=== PATIENT | female | born 1965 | race Caucasian/White ===

== ENCOUNTER 2016-10-20 09:13 | Emergency (ER) | payer OTHER ==
[~2016-10-20] VITALS: Ht 149.8 cm; Wt 70.3 kg
[~2016-10-20 09:13] MED LIST: ATORVASTATIN CA10 MG PO; FAMOTIDINE20 M1 PO; FLUOXETINE HCL10 MG PO; FLUOXETINE HYDR20 M1 PO; GLIPIZIDE5 MG PO; GLYBURIDE1 CRY; GLYBURIDE1.5 MG PO; HUMALOG100 UNIT/1 SQ; LANTUS100 U/ML SC; LISINOPRIL30 MG PO; METFORMIN500 MG PO; MOBIC15 MG PO; MOBIC7.5 MG PO; MOTRIN400 MG; MOTRIN800 MG PO; NEURONTIN300 MG PO; OXYBUTYNIN5 MG PO; VITAMIN D2400 UNIT PO
[2016-10-20 09:18] VITALS: BP 149/79
[2016-10-20] MEDS ORDERED: BACTRIM DS 8001 TA1 PO (09:56)
== END 2016-10-20 10:18 | disposition home or self-care (01) ==
LOC: ED 09:13
DX: E10.621 Type 1 diabetes mellitus with foot ulcer (principal); L97.521 Non-pressure chronic ulcer of other part of left foot limited to breakdown of skin; R03.0 Elevated blood-pressure reading, without diagnosis of hypertension; Z79.4 Long term (current) use of insulin; Z79.899 Other long term (current) drug therapy

== ENCOUNTER → 2016-10-24 | Outpatient (CLI) | payer OTHER ==
[~2016-10-24] MED LIST changes: +BACTRIM DS 8001 TA1 PO
--- NOTE | ~2016-10-24 | WRIGHTHP ---
[place], [place] PATIENT HISTORY AND PHYSICAL EXAM NAME: ERIKA ISIDRO [facility] #: [id number] UNIT #: [id number] ROOM: DOCTOR: AURY EL M.D. BIRTHDATE: [birth year] DOS: 10/24/2016 This is a new wound care evaluation. CHIEF COMPLAINT: Diabetic foot ulcer. HISTORY OF PRESENT ILLNESS: This is a 51-year-old female with history of type 2 diabetes, which is uncontrolled, who comes to the wound clinic secondary to a referral from the ER. She presented to the Emergency Department 4 days ago with an ulcer of the bottom of her left foot. She apparently had a very thick callus present on the bottom of her left foot for many months now that was causing pain and discomfort whenever she would walk on it and she had been to the textbook associate who was debriding it and did notice an ulcer present approximately for the past 2 months now, so she said she was following up with Podiatry for wound care, had it debrided every week, but the ulcer did not heal. She said she has noticed an odor coming from it and was seen in the Emergency Room Department, had an x-ray done for it, which was negative and was treated with oral antibiotics, Bactrim double strength twice a day was prescribed. The patient reports that odorous has improved after being on the antibiotics. She is soaking her foot with soap and water, but has not had wound care for this ulcer since at least August. She said the last time the wound area was debrided was back in August, so the callus has not been recently debrided. She does also report that at one point she was given a prescription for some type of cream, but no longer has been using it and just really has not been using any type of special dressings on this wound. She has regular shoes that she has been wearing and was told to walk on her heel which she has trouble with, which causes discomfort of her heel. She reports this is the first time she has ever had an ulcer of her left foot. PAST MEDICAL HISTORY: Significant for hyperlipidemia and hypertension. She has a history of type 2 diabetes, is on insulin and oral agents. Her sugar was 170 recently, however, when I looked back at her blood work, her labs were quite uncontrolled. Her sugar at that time was 234 and her hemoglobin A1c was 11.3. Her lipid profile also was markedly uncontrolled with triglyceride 490 range. Cholesterol 310. PAST MEDICAL HISTORY: She has neuropathy and GERD. She has never had a formal peripheral vascular disease that she is aware of. Never had a heart attack or heart failure that she is aware of. She has a history of arthritis, chronic back pain, dizziness, headaches and history of anxiety. PAST SURGICAL HISTORY: She is status post cholecystectomy. FAMILY HISTORY: Significant for hypertension in the mother and father, diabetes in her mother and siblings and heart disease in her father, seizure disorder in her child. SOCIAL HISTORY: She is a smoker, smokes half a pack per day. She is , does not use drugs or drink alcohol. ALLERGIES: No known drug allergies. [place], [place] PATIENT HISTORY AND PHYSICAL EXAM NAME: ERIKA ISIDRO [facility] #: [id number] UNIT #: [id number] ROOM: DOCTOR: AURY EL M.D. BIRTHDATE: [birth year] MEDICATIONS: As follows: She is on atorvastatin 10 mg p.o. daily, fluoxetine 10 mg p.o. b.i.d. and 20 mg p.o. b.i.d., Mobic 15 mg p.o. daily or 7.5 p.o. daily, metformin 500 p.o. b.i.d., vitamin D2 500 units p.o. daily, oxybutynin 5 mg p.o. daily, lisinopril 30 mg p.o. daily, glyburide 1.5 p.o. daily, famotidine 20 mg every 12 hours, glipizide 5 mg p.o. daily, Neurontin 300 p.o. t.i.d., insulin Lantus 25 units at bedtime and lispro 25 units subq daily. REVIEW OF SYSTEMS: She does have some pain and discomfort from the ulcer when she walks on it, but otherwise no fevers or chills. She reports no problems with the antibiotics. Denies chest pain, shortness of breath, nausea or vomiting. She does have some intermittent discomfort in her legs when she ambulates and has to take breaks, but does not really say it is really localized to the calf. It seems more generalized. She does have some drainage coming from the wound and it is bloody. PHYSICAL EXAMINATION: GENERAL: Shows female who is a well-developed, well-nourished, pleasant, cooperative in no acute distress. VITAL SIGNS: Stable. Temperature 98, pulse 80, respirations 18, blood pressure is 130/80. HEENT: Oropharynx is clear. Extraocular movements are intact. Sclerae are anicteric. NECK: There is no JVD. LUNGS: Clear. CARDIOVASCULAR: S1, S2 regular rate and rhythm. ABDOMEN: Soft and nontender. EXTREMITIES: Really no edema, no calf tenderness. The foot is warm. I have a difficult time appreciate her pulses. She did have an JUNE done which was 0.97 on the left and 1.08 on the right foot. ASSESSMENT: Shows some sensation present in some areas that are noted to have decreased sensation with monofilament testing. The wound is located on the left plantar aspect in between the first and second metatarsal head and its very thick callus very quite large measuring 1 x 0.5 x 0.4 in depth. There is no significant odor. There is no erythema or purulence. There is undermining noted as well at the 5 o'clock position at 0.5 cm. A debridement was done today. The tissue removed was devitalized tissue and callus was debrided with forceps, scissors and a 15 blade also and nippers were used. There was no bleeding. Cetacaine spray was used for topical anesthesia. A timeout was conducted prior to start of the procedure. The patient tolerated procedure well. Post-debridement measurements are 1.4 x 0.5 x 0.4. It was noted that the ulcer still was fairly deep even after the callus was debrided, so there is a definite deep ulcer present. Post-debridement swab culture was obtained of the deepest part of the wound. ASSESSMENT AND PLAN: Chronic diabetic foot ulcer, Boyd Stage 2. There does not appear to be any signs of infection. I would like to use Aquacel Ag rope and a bulky dressing. I felt foam padding was applied to the outer part of the callus to help offload the area. We will give her postop shoe today. We will [place], [place] PATIENT HISTORY AND PHYSICAL EXAM [facility]: [facility] [id number] UNIT #: [id number] ROOM: DOCTOR: AURY EL M.D. BIRTHDATE: [birth year] go ahead and schedule her for an MRI to be done if negative, I think she would be a good candidate for total contact cast. Also, I have taken the liberty to order arterial Dopplers for her. Her pedal pulses were difficult to palpate upon examination. Although her JUNE was good. She does have uncontrolled diabetes. I discussed this with her and asked her to make sure she follows up with her primary care doctor. We will also consider having the finance business partner come and speak with her about her sugar control. A culture was obtained, although clinically there does not appear to be any signs of an acute infection. She is going to go ahead and complete her Bactrim. Follow up in 1 week. AURY EL MD CM:HISPHYS:PATIENT HISTORY AND PHYSICAL EXAMINATION [id number] AURY EL M.D. 10/25/16 0943 interface
== END | disposition home or self-care (01) ==
LOC: WOUNDCARE 09:09
DX: E11.621 Type 2 diabetes mellitus with foot ulcer (principal); L97.522 Non-pressure chronic ulcer of other part of left foot with fat layer exposed; L84 Corns and callosities; E78.5 Hyperlipidemia, unspecified; I10 Essential (primary) hypertension; F17.210 Nicotine dependence, cigarettes, uncomplicated

== ENCOUNTER → 2016-10-30 | Outpatient (CLI) | payer OTHER ==
--- NOTE | ~2016-10-30 | PR ---
[place], [place] PROGRESS NOTE NAME: ERIKA ISIDRO [facility] #: [id number] UNIT #: [id number] ROOM: DOCTOR: NIKKO IbarraAURY BIRTHDATE: [birth year] DOS: 10/30/2016 CHIEF COMPLAINT: Followup of diabetic foot ulcer. HISTORY OF PRESENT ILLNESS: This is a 51-year-old female with uncontrolled diabetes and neuropathy who was seen in the Wound Clinic for the first time last week for a diabetic foot ulcer located on the left plantar foot between the first and second metatarsals. She has had an ulcer there for approximately 2 months before she came to see us. She was seen last week where it was noted that the wound was quite deep. There was a very thick callus that was debrided, and Aquacel Ag Ribbon and a bulky dressing as well as a postop shoe were recommended. The patient states that she has noticed an odor on occasions when she changes the bandages. No fevers or chills. No pain. No change in drainage since last week. She has been walking with a postop shoe okay without any particular complaints. She is scheduled for an MRI and an ultrasound next week. PHYSICAL EXAMINATION: VITAL SIGNS: Temperature 97.7, pulse 82, respirations 18, and blood pressure 122/76. WOUND: The wound is measuring 0.8 x 0.5 x 0.4. This callus is fairly thick, but not quite as thick as it was last week, the depth is still pretty deep. There was a minimal undermining at 12 o'clock position of 0.5. The area was debrided with a #15 blade to remove the hyperkeratotic callus and also a curette was utilized to remove fibrin, slough, and subcutaneous tissue from the deep part of the wound. The patient tolerated the debridement well. There was minimal bleeding. Post-debridement measurements are 0.8 x 0.5 x 0.4. A culture was obtained last week which grew Klebsiella, which was sensitive to pretty much everything except for tetracycline. The patient has been completing a course of Bactrim; however, she has been complaining of frequent vomiting and nausea. Otherwise, she does not feel sick at all. She just thinks it is from the antibiotics. ASSESSMENT AND PLAN: Diabetic foot ulcer, Boyd stage 2. She is going to have her MRI and ultrasound next week. We are using a postop shoe for offloading. I have added a felt pad to help see if we can alleviate some of the pressure around the gold-wound or the gold-callus area. Due to the odor still present, I am going to add Keflex to her regimen instead of Bactrim and topical gentamicin to the wound base. We will have the patient follow up in one week. [place], [place] PROGRESS NOTE [facility]: [id number] UNIT #: [id number] ROOM: DOCTOR: AURY EL M.D. BIRTHDATE: [birth year] AURY EL MD CM:PNTRANS [id number] AURY EL M.D. 10/30/16 1156 interface
== END | disposition home or self-care (01) ==
LOC: WOUNDCARE 00:44
DX: E11.621 Type 2 diabetes mellitus with foot ulcer (principal); L97.522 Non-pressure chronic ulcer of other part of left foot with fat layer exposed; E11.40 Type 2 diabetes mellitus with diabetic neuropathy, unspecified; L84 Corns and callosities

== ENCOUNTER → 2016-11-07 | Outpatient (CLI) | payer OTHER ==
--- NOTE | ~2016-11-07 | PR ---
[place], [place] PROGRESS NOTE NAME: ERIKA ISIDRO [facility] #: [id number] UNIT #: [id number] ROOM: DOCTOR: AURY EL M.D. BIRTHDATE: [birth year] DOS: 11/07/2016 CHIEF COMPLAINT: Followup of diabetic foot ulcer. HISTORY OF PRESENT ILLNESS: The location of the wound is the left plantar aspect between the first and second metatarsal head. It is secondary to diabetes and neuropathy. She has had it for 3 months at least. She has been coming to the Wound Clinic for 2 weeks now. She has no specific complaints. She says that the wound has stopped draining, she thinks the wound is healed. She is not having pain or discomfort. She had some klebsiella growing from the wound 2 weeks ago and she was started on oral Keflex. She is tolerating that well. She says her sugar was 197 today. She was scheduled for an ultrasound and an MRI of the left foot. She is still a smoker. PHYSICAL EXAMINATION: VITAL SIGNS: Stable. Temperature is 98.1, pulse 80, respirations 18, and blood pressure 100/60. WOUND: The wound does appear to be healed. There is still some callus noted. A selective debridement was done just to remove the hyperkeratotic callus. The wound still remained closed underneath it. This was carried out with a #15 blade. There was no bleeding. The wound appears healed underneath it. ASSESSMENT AND PLAN: Diabetic foot ulcer. It does appear to be healed at this point, we can go ahead and cancel the MRI. If for some reason, it reopens, we can reschedule it, but I do want her to get her ultrasound done as she is a smoker and diabetic and there is a risk for peripheral arterial disease. Follow up in 1 week. She can leave the area open for now. I did encourage her to wear diabetic socks. She has diabetic shoes. We will go ahead and put offloading pad around the area on the outer part of the callus. I did show her how to do this at home and she would like to try. AURY EL MD CM:PNTRANS [id number] AURY EL M.D. 11/07/16 1225 interface
== END | disposition home or self-care (01) ==
LOC: US 11-06 13:00 → MRI 11-06 14:00 → WOUNDCARE 08:02 → US 10:00
DX: E11.621 Type 2 diabetes mellitus with foot ulcer (principal); L97.522 Non-pressure chronic ulcer of other part of left foot with fat layer exposed; E11.40 Type 2 diabetes mellitus with diabetic neuropathy, unspecified; L84 Corns and callosities

== ENCOUNTER → 2016-11-14 | Outpatient (CLI) | payer OTHER ==
--- NOTE | ~2016-11-14 | PR ---
[place], [place] PROGRESS NOTE NAME: ERIKA ISIDRO [facility] #: [id number] UNIT #: [id number] ROOM: DOCTOR: NIKKO IbarraAURY BIRTHDATE: [birth year] DOS: 11/14/2016 CHIEF COMPLAINT: Followup of diabetic foot ulcer. HISTORY OF PRESENT ILLNESS: This is a 51-year-old female with diabetes who has been coming to the Wound Clinic for 3 weeks now for a diabetic foot ulcer of the left plantar foot. She has had the wound approximately for 3 months prior to her coming here. It was felt that her wound was healed upon last visit and she states that she thinks the wound remains healed; however, she said she did notice some discomfort and pain when she was walking on her foot the other day, although does not have the pain today. No drainage, no fevers, no chills. She continues to smoke. PHYSICAL EXAMINATION: VITAL SIGNS: She is afebrile, pulse of 70, respirations 18, blood pressure is 110/70. SKIN: The area appears to be callused over. It is measuring 0.1 x 0.1 x 0.1, but there is a small area in the center of the callus that appears perhaps it has not quite healed completely. This area was selectively debrided with a #15 blade, forceps and scissors and it was noted that the wound was still slightly open after debridement. There was no bleeding. #15 blade, forceps and scissors were utilized. Post-debridement measurements are 0.5 x 0.2 x 0.2. The wound looks clean. It is definitely smaller than it was when she first presented and there is no sign of infection. I did go over the lab results with the patient. She had her arterial ultrasound done of bilateral lower extremities and she has severe distal atherosclerosis of the right lower extremity noted. The left one looks okay. I discussed this with the patient and I recommend a followup with Vascular. She does have some symptoms consistent with intermittent claudication of the right leg, so she should definitely follow up with Vascular. ASSESSMENT AND PLAN: Chronic diabetic foot ulcer, which does appear to be getting smaller in general. There is no sign of infection. We will continue with a collagen dressing and a bulky dressing and have her follow up in 1 week. I did mention that we should consider total contact cast if it is not completely healed by then and she says she wants to wait another week to see how it looks. A small felt moleskin was applied to the outer part of the callused area. She did state, however, that she did try to use some offloading pad, but she placed it right on the actual callus instead of around it, so that may have contributed to part of the callus returning so quickly. I did explain to her that we should not put it on the callus, but on the outside of the callus to try to offload it. Follow up in 1 week. [place], [place] PROGRESS NOTE NAME: ERIKA ISIDRO UNIT #: [id number] ROOM: DOCTOR: AURY EL M.D. BIRTHDATE: [birth year] AURY EL MD CM:ROMULO [id number] AURY EL M.D. 11/15/16 0016 interface
== END | disposition home or self-care (01) ==
LOC: WOUNDCARE 03:43
DX: E11.621 Type 2 diabetes mellitus with foot ulcer (principal); L97.522 Non-pressure chronic ulcer of other part of left foot with fat layer exposed; E11.51 Type 2 diabetes mellitus with diabetic peripheral angiopathy without gangrene; L84 Corns and callosities

== ENCOUNTER → 2016-11-22 | Outpatient (CLI) | payer OTHER ==
--- NOTE | ~2016-11-22 | PR ---
[place], [place] PROGRESS NOTE NAME: ERIKA ISIDRO [facility] #: [id number] UNIT #: [id number] ROOM: DOCTOR: AURY EL M.D. BIRTHDATE: [birth year] DOS: 11/22/2016 CHIEF COMPLAINT: Follow up of diabetic foot ulcer. HISTORY OF PRESENT ILLNESS: A 51-year-old female with uncontrolled diabetes. She has been coming to the Wound Clinic for 4 weeks now for a diabetic foot ulcer on the left plantar foot. It essentially has been getting smaller. It does, however, calluses over and then there is still small open area underneath it. This was noted last week. She states it looks the same today as it did after last week and has callused over once again and she is not able to pack it, she says she ran out of dressing. She has no drainage coming from it and no pain. She is scheduled for possible vascular intervention tomorrow with Dr. Bates for the right leg. PHYSICAL EXAMINATION: She is afebrile, temperature 98.4, pulse 74, respirations 18, and blood pressure 124/82. Initially, the wound looks to be healed over, but there is a very thick callus, not quite as thick as before, but it is noted; however, it does appear that there may be a small central opening still noted. Debridement was done, selective only, to remove the hyperkeratotic area and there is still an open area noted. It is small at 0.4 x 0.1 x 0.2, but it is still open and is almost smaller than an eraser head essentially. There is no sign of infection, purulence, cellulitis, or odor. ASSESSMENT AND PLAN: Diabetic foot ulcer, Boyd stage 1 at this point. It is definitely improved overall. She still has a small open area that is present. We did discuss doing a contact cast, but she is going to have revascularization tomorrow. I would like to leave the cast off in case they want to do any procedures for the left leg. She can come back on Sunday for possible total contact cast placement. In the meantime, we will continue with collagen and bulky dressing and have her follow up early next week. AURY EL MD CM:PNTRANS [id number] AURY EL M.D. 11/23/16 0107 interface
== END | disposition home or self-care (01) ==
LOC: WOUNDCARE 01:42
DX: E11.621 Type 2 diabetes mellitus with foot ulcer (principal); L97.522 Non-pressure chronic ulcer of other part of left foot with fat layer exposed; E11.51 Type 2 diabetes mellitus with diabetic peripheral angiopathy without gangrene; L84 Corns and callosities

== ENCOUNTER → 2016-11-27 | Outpatient (CLI) | payer OTHER ==
--- NOTE | ~2016-11-27 | PR ---
[place], [place] PROGRESS NOTE NAME: ERIKA ISIDRO [facility] #: [id number] UNIT #: [id number] ROOM: DOCTOR: AURY EL M.D. BIRTHDATE: [birth year] DOS: 11/27/2016 WOUND CARE PROGRESS NOTE CHIEF COMPLAINT: Follow up diabetic foot ulcer. HISTORY OF PRESENT ILLNESS: This is a 51-year-old female with uncontrolled diabetes and plantar foot wound on the left foot that has been present for several weeks. She has been coming to the Wound Clinic for 4 weeks now. The wound has been steadily improving. It does callus over fairly quickly and after debridement, it is still slightly opened. Last week, we had considered doing a total contact cast, but the patient is awaiting possible vascular intervention on the right leg; however, it is unclear if anything will be done with the left, so I would like to hold off on contact cast until that has been completed. In any case, the patient comes in today without any specific complaints. The wound is not draining. OBJECTIVE: VITAL SIGNS: Stable. Temperature 98.2, pulse is 70, respirations 18, blood pressure is 110/64. The wound looks to be closed again. A selective debridement was done just to remove the devitalized callus around it and the wound is still slightly open. Post-debridement, it is 0.3 x 0.1 x 0.1. The instrument used was a #15 blade and there was no bleeding. ASSESSMENT AND PLAN: Healing diabetic foot ulcer. We will continue with the current dressing and hopefully, this wound will be healed by next week. AURY EL MD CM:PNBIGG [id number] 9 AURY EL M.D. 11/28/16309 interface
== END | disposition home or self-care (01) ==
LOC: WOUNDCARE 01:53
DX: E11.621 Type 2 diabetes mellitus with foot ulcer (principal); L97.522 Non-pressure chronic ulcer of other part of left foot with fat layer exposed; E11.51 Type 2 diabetes mellitus with diabetic peripheral angiopathy without gangrene; L84 Corns and callosities

== ENCOUNTER → 2016-12-08 | Outpatient (CLI) | payer OTHER | END | disposition home or self-care (01) | LOC: WOUNDCARE 02:12 | DX: E11.621 Type 2 diabetes mellitus with foot ulcer (principal); L97.522 Non-pressure chronic ulcer of other part of left foot with fat layer exposed; E11.51 Type 2 diabetes mellitus with diabetic peripheral angiopathy without gangrene; I10 Essential (primary) hypertension; E78.5 Hyperlipidemia, unspecified; F17.210 Nicotine dependence, cigarettes, uncomplicated ==

== ENCOUNTER → 2016-12-20 | Outpatient (CLI) | payer OTHER | END | disposition home or self-care (01) | LOC: ORTHO 00:43 | DX: M25.512 Pain in left shoulder (principal) ==

== ENCOUNTER → 2017-02-07 | Outpatient (CLI) | payer OTHER | END | disposition home or self-care (01) | LOC: WOUNDCARE 09:57 | DX: E11.621 Type 2 diabetes mellitus with foot ulcer (principal); L97.521 Non-pressure chronic ulcer of other part of left foot limited to breakdown of skin; I10 Essential (primary) hypertension; E78.5 Hyperlipidemia, unspecified; F17.210 Nicotine dependence, cigarettes, uncomplicated ==

== ENCOUNTER → 2017-02-21 | Outpatient (CLI) | payer OTHER | END | disposition home or self-care (01) | LOC: WOUNDCARE 02:24 | DX: E11.621 Type 2 diabetes mellitus with foot ulcer (principal); L97.521 Non-pressure chronic ulcer of other part of left foot limited to breakdown of skin; I10 Essential (primary) hypertension; E78.5 Hyperlipidemia, unspecified; F17.210 Nicotine dependence, cigarettes, uncomplicated ==

== ENCOUNTER → 2017-02-28 | Outpatient (CLI) | payer OTHER | END | disposition home or self-care (01) | LOC: WOUNDCARE 01:52 | DX: E11.621 Type 2 diabetes mellitus with foot ulcer (principal); L97.521 Non-pressure chronic ulcer of other part of left foot limited to breakdown of skin; E78.5 Hyperlipidemia, unspecified; F17.210 Nicotine dependence, cigarettes, uncomplicated ==

== ENCOUNTER → 2017-03-07 | Outpatient (CLI) | payer OTHER | END | disposition home or self-care (01) | LOC: WOUNDCARE 01:26 | DX: E11.621 Type 2 diabetes mellitus with foot ulcer (principal); L97.521 Non-pressure chronic ulcer of other part of left foot limited to breakdown of skin; I10 Essential (primary) hypertension; E78.5 Hyperlipidemia, unspecified; F17.210 Nicotine dependence, cigarettes, uncomplicated ==

== ENCOUNTER → 2017-04-11 | Outpatient (CLI) | payer OTHER | END | disposition home or self-care (01) | LOC: WOUNDCARE 03:05 | DX: E11.621 Type 2 diabetes mellitus with foot ulcer (principal); L97.422 Non-pressure chronic ulcer of left heel and midfoot with fat layer exposed; I10 Essential (primary) hypertension; E78.5 Hyperlipidemia, unspecified; F17.210 Nicotine dependence, cigarettes, uncomplicated ==

== ENCOUNTER → 2017-05-02 | Outpatient (CLI) | payer OTHER | END | disposition home or self-care (01) | LOC: WOUNDCARE 01:02 | DX: E11.621 Type 2 diabetes mellitus with foot ulcer (principal); L97.422 Non-pressure chronic ulcer of left heel and midfoot with fat layer exposed; I10 Essential (primary) hypertension; E78.5 Hyperlipidemia, unspecified; F17.210 Nicotine dependence, cigarettes, uncomplicated ==

== ENCOUNTER → 2017-05-10 | Outpatient (CLI) | payer OTHER | END | disposition home or self-care (01) | LOC: LAB 00:42 → WOUNDCARE 00:42 | DX: E11.621 Type 2 diabetes mellitus with foot ulcer (principal) ==

== ENCOUNTER → 2017-05-16 | Outpatient (CLI) | payer OTHER | END | disposition home or self-care (01) | LOC: WOUNDCARE 02:10 | DX: E11.621 Type 2 diabetes mellitus with foot ulcer (principal); L97.422 Non-pressure chronic ulcer of left heel and midfoot with fat layer exposed; I10 Essential (primary) hypertension; E78.5 Hyperlipidemia, unspecified; F17.210 Nicotine dependence, cigarettes, uncomplicated ==

== ENCOUNTER → 2017-05-23 | Outpatient (CLI) | payer OTHER | LOC: WOUNDCARE 01:36 | DX: E11.621 Type 2 diabetes mellitus with foot ulcer (principal); L97.422 Non-pressure chronic ulcer of left heel and midfoot with fat layer exposed; I10 Essential (primary) hypertension; E78.5 Hyperlipidemia, unspecified; F17.210 Nicotine dependence, cigarettes, uncomplicated ==

== ENCOUNTER → 2017-05-28 | Outpatient (CLI) | payer OTHER | END | disposition home or self-care (01) | LOC: WOUNDCARE 02:22 | DX: E11.621 Type 2 diabetes mellitus with foot ulcer (principal); L97.521 Non-pressure chronic ulcer of other part of left foot limited to breakdown of skin; E78.5 Hyperlipidemia, unspecified; I10 Essential (primary) hypertension; F17.210 Nicotine dependence, cigarettes, uncomplicated ==

== ENCOUNTER → 2017-06-13 | Outpatient (CLI) | payer OTHER | END | disposition home or self-care (01) | LOC: WOUNDCARE 01:31 | DX: E11.621 Type 2 diabetes mellitus with foot ulcer (principal); L97.521 Non-pressure chronic ulcer of other part of left foot limited to breakdown of skin; E78.5 Hyperlipidemia, unspecified; I10 Essential (primary) hypertension; F17.210 Nicotine dependence, cigarettes, uncomplicated ==

== ENCOUNTER → 2017-06-20 | Outpatient (CLI) | payer OTHER | END | disposition home or self-care (01) | LOC: WOUNDCARE 03:57 | DX: E11.621 Type 2 diabetes mellitus with foot ulcer (principal); L97.521 Non-pressure chronic ulcer of other part of left foot limited to breakdown of skin; E78.5 Hyperlipidemia, unspecified; I10 Essential (primary) hypertension; F17.210 Nicotine dependence, cigarettes, uncomplicated ==

== ENCOUNTER → 2017-06-27 | Outpatient (CLI) | payer OTHER | END | disposition home or self-care (01) | LOC: RAD 00:33 → WOUNDCARE 00:33 | DX: M81.8 Other osteoporosis without current pathological fracture (principal); E11.621 Type 2 diabetes mellitus with foot ulcer; L02.416 Cutaneous abscess of left lower limb; L97.422 Non-pressure chronic ulcer of left heel and midfoot with fat layer exposed ==

== ENCOUNTER → 2017-07-04 | Outpatient (CLI) | payer OTHER | END | disposition home or self-care (01) | LOC: WOUNDCARE 01:42 | DX: E11.621 Type 2 diabetes mellitus with foot ulcer (principal); L97.422 Non-pressure chronic ulcer of left heel and midfoot with fat layer exposed; I10 Essential (primary) hypertension; E78.5 Hyperlipidemia, unspecified; F17.210 Nicotine dependence, cigarettes, uncomplicated ==

== ENCOUNTER → 2017-09-12 | Outpatient (CLI) | payer OTHER ==
[~2017-09-12] MED LIST changes: +ASPIRIN ADULT L81 M1 PO; -ATORVASTATIN CA10 MG PO; +FLUOXETINE HCL60 MG PO; +LIPITOR40 MG PO; +LISINOPRIL-HCT1 EACH PO; +PEPCID40 MG PO; +PRILOSEC20 M1 PO; +TOUJEO SOL300 UNIT/1 SQ; +VITAMIN D-32000 UNI1 PO
== END | disposition home or self-care (01) ==
LOC: WOUNDCARE 03:13
DX: E11.621 Type 2 diabetes mellitus with foot ulcer (principal); L97.412 Non-pressure chronic ulcer of right heel and midfoot with fat layer exposed; I10 Essential (primary) hypertension; E78.5 Hyperlipidemia, unspecified; F17.210 Nicotine dependence, cigarettes, uncomplicated

== ENCOUNTER → 2017-09-26 | Outpatient (CLI) | payer OTHER | END | disposition home or self-care (01) | LOC: WOUNDCARE 04:23 | DX: E11.621 Type 2 diabetes mellitus with foot ulcer (principal); L97.422 Non-pressure chronic ulcer of left heel and midfoot with fat layer exposed; I10 Essential (primary) hypertension; L84 Corns and callosities; E78.5 Hyperlipidemia, unspecified; F17.210 Nicotine dependence, cigarettes, uncomplicated ==

== ENCOUNTER → 2017-10-03 | Outpatient (CLI) | payer OTHER | END | disposition home or self-care (01) | LOC: WOUNDCARE 02:05 | DX: E11.621 Type 2 diabetes mellitus with foot ulcer (principal); L97.521 Non-pressure chronic ulcer of other part of left foot limited to breakdown of skin; L97.412 Non-pressure chronic ulcer of right heel and midfoot with fat layer exposed; E11.622 Type 2 diabetes mellitus with other skin ulcer; L89.893 Pressure ulcer of other site, stage 3; L97.821 Non-pressure chronic ulcer of other part of left lower leg limited to breakdown of skin; L84 Corns and callosities; E78.5 Hyperlipidemia, unspecified; I10 Essential (primary) hypertension; F17.210 Nicotine dependence, cigarettes, uncomplicated ==

== ENCOUNTER → 2017-10-10 | Outpatient (CLI) | payer OTHER | END | disposition home or self-care (01) | LOC: WOUNDCARE 03:37 | DX: E11.621 Type 2 diabetes mellitus with foot ulcer (principal); L97.521 Non-pressure chronic ulcer of other part of left foot limited to breakdown of skin; L84 Corns and callosities; L97.412 Non-pressure chronic ulcer of right heel and midfoot with fat layer exposed; I10 Essential (primary) hypertension; E78.5 Hyperlipidemia, unspecified; F17.200 Nicotine dependence, unspecified, uncomplicated ==

== ENCOUNTER → 2017-10-17 | Outpatient (CLI) | payer OTHER ==
[~2017-10-17] MED LIST changes: -ASPIRIN ADULT L81 M1 PO; +ATORVASTATIN CA10 MG PO; -FLUOXETINE HCL60 MG PO; -LIPITOR40 MG PO; -LISINOPRIL-HCT1 EACH PO; -PEPCID40 MG PO; -PRILOSEC20 M1 PO; -TOUJEO SOL300 UNIT/1 SQ; -VITAMIN D-32000 UNI1 PO
== END | disposition home or self-care (01) ==
LOC: WOUNDCARE 02:07
DX: E11.621 Type 2 diabetes mellitus with foot ulcer (principal); L97.422 Non-pressure chronic ulcer of left heel and midfoot with fat layer exposed; L89.890 Pressure ulcer of other site, unstageable; L98.491 Non-pressure chronic ulcer of skin of other sites limited to breakdown of skin; L84 Corns and callosities; E78.5 Hyperlipidemia, unspecified; I10 Essential (primary) hypertension; F17.200 Nicotine dependence, unspecified, uncomplicated

== ENCOUNTER 2017-11-06 16:51 | Inpatient (IN) | payer OTHER ==
[~2017-11-06] VITALS: Ht 149.9 cm; Wt 64.9 kg
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
--- NOTE | ~2017-11-06 | EKG ---
[place], [place] ELECTROCARDIOGRAM REPORT NAME: ERIKA ISIDRO UNIT #: [id number] ROOM: 402 DOCTOR: FELICITA DRAFT REPORT BIRTHDATE: [birth year] [facility] Test Date: 2017-11-06 Test Time: 17:59:10 Pat Name: ERIKA ISIDRO Department: Room: 402 Gender: F Electronics Test Engineer: LATISHA : 1965 Requested By: MILLY CANDELARIA Order Number: [id number] Reading MD: Manjeet Perez MD Measurements Intervals [place] Rate: 119 P: 6 MO: 140 QRS: -22 QRSD: 73 T: 31 QT: 311 QTc: 438 Interpretive Statements Sinus tachycardia Probable left atrial enlargement Abnormal R-wave progression, late transition Probable left ventricular hypertrophy Baseline wander in lead(s) V1,V2,V3,V5 Electronically Signed On 11-06-2017 17:55:12 PDT by Manjeet Perez MD CM:EKGRPT:ELECTROCARDIOGRAM REPORT 58 175 MILLY MIMS DRAFT REPORT MILLY CANDELARIA MD
--- NOTE | ~2017-11-06 | PN ---
[place], [place] PROGRESS NOTE NAME: ERIKA ISIDRO UNIT #: [id number] ROOM: 402 DOCTOR: JONATHAN SAPP DPM BIRTHDATE: [birth year] DATE: 11/07/17 ADDENDUM TO RESIDENT REPORT: I rounded with the resident and concur with their diagnosis and treatment as documented by the resident. JONATHAN SAPP DPM CM:PNTRANS 1030 161 JONATHAN SAPP DPM 01/30/18 161 MANI FLEMING MIS.LLR
--- NOTE | ~2017-11-06 | WRIGHTHP ---
[place], [place] PATIENT HISTORY AND PHYSICAL EXAM NAME: ERIKA ISIDRO [facility] #: [id number] UNIT #: [id number] ROOM: 402 DOCTOR: JONATHAN SAPP DPM BIRTHDATE: [birth year] DOS: 11/07/2017 LOWER EXTREMITY PHYSICAL EXAMINATION: VASCULAR: There are palpable pedal pulses 2/4, DP and PT bilaterally. Good capillary refill time. NEUROLOGICAL: Reveals decreased epicritic sensation secondary to diabetic peripheral neuropathy. DERMATOLOGIC: Open wound on plantar aspect left foot, approximately 1.5 cm in diameter, plantar aspect with sub second metatarsal area. There is red, erythematous, inflamed tissue consistent with diabetic foot infection and probes to bone. There is no creamy purulent drainage identified. There was no significant odor identified, but there is kind of soft tissue changes and probable bone changes of the left forefoot. MUSCULOSKELETAL: She has a gastrocnemius equinus. She has a posterior muscle group that is tight. She has unstable first ray overloading the mid, distal metatarsals. Orthopedic exam consistent with osteomyelitis of the left foot. INDICATIONS: The patient was seen in the preoperative area. I met her, introduced myself, evaluated and examined her. At this point in time, I discussed pros, cons, risks, benefits and indicated her that she is at risk for limb loss. She understood the pros, cons, risks, benefits, understood this. With this in mind, she signed the consent. She identified the group site marking. We also talked about the perioperative management. With this in mind, she understood all that was discussed with her and she agreed with the procedures and proposed surgery and the reconstruction, understanding the pros, cons, risks and benefits and appropriate site marking as well. JONATHAN SAPP DPM CM:HISPHYS:PATIENT HISTORY AND PHYSICAL EXAMINATION 8 [id number] JONATHAN SAPP DPM 11/14/17 0602 interface
--- NOTE | ~2017-11-06 | O ---
[place], [place] OPERATIVE NOTE NAME: [id number] UNIT #: [id number] ROOM: 402 DOCTOR: JONATHAN SAPP DPM BIRTHDATE: [birth year] DOS: 11/07/2017 SURGEON: Jonathan Sapp DPM WET SILK HANGER: Vinay Elam, PGY1 WET SILK HANGER: Sandra Lehman, PGY-2. PREOPERATIVE DIAGNOSIS: Osteomyelitis, sub second metatarsal, left. POSTOPERATIVE DIAGNOSIS: Osteomyelitis, sub second metatarsal, left. PROCEDURES: 1. Incision and drainage, bone debridement, bone biopsy, and cultures. 2. Application of negative pressure therapy, wound VAC. DESCRIPTION OF PROCEDURE: PROCEDURE #1: Incision and drainage, bone debridement, bone biopsy, and cultures. The patient was seen in preoperative holding area, appropriate site marking was performed. The patient agreed. She concurred with the consent and, preoperative medication as well as appropriate site marked. At this time, she was brought to the OR and placed well padded in OR table. Once anesthesia was achieved, her left leg and foot and leg were prepped and draped in sterile fashion. At this time, appropriate time-out was performed, everyone in the room concurred. At this time, a blunt hemostat was used and probed down to bone and distally to the webspace to its natural endpoint, an incision and drainage was made through all the soft tissues. A small probe was put proximally as far as possible into the space into the natural end point and that this was incised and drained, incised to full thickness down the bone. At this point, we began extensive debridements with curettes and rongeurs resecting tissue. Tissue culture sent for Gram stain, aerobic, anaerobic, fungal acid fast. Also, bone was debrided with the rongeur. Bone was sent for Gram stain aerobic and anaerobic, fungus, and acid fast and also bone sent for biopsy. Next, 300 ML bag was used of irrigation and flushed copiously. PROCEDURE #2: Application of negative pressure therapy, wound VAC applied. Negative pressure therapy wound VAC was applied to the left plantar foot. The tourniquet was applied in usual fashion. The wound VAC set at 200 mm continuous pressure. The wounds were dressed with wound VAC and dry sterile dressing applied. She tolerated the procedure and anesthesia well. The foot was compressed with CHAPITO bandage. [place], [place] OPERATIVE NOTE NAME: ERIKA ISIDRO Liane UNIT #: [id number] ROOM: [facility] DOCTOR: JONATHAN SAPP DPM BIRTHDATE: [birth year] JONATHAN SAPP DPM CM:OPRECORD:OPERATIVE NOTE 1310 JONATHAN SAPP DPM 11/28/17 1654 interface
[~2017-11-06 16:51] MED LIST changes: -ATORVASTATIN CA10 MG PO; +LIPITOR40 MG PO
[2017-11-06 16:52] VITALS: BP 136/84
[2017-11-06 17:35] LABS: BASO # 0.1 10*3/uL (0.0-0.1); BASO % 0.3 % (0.0-1.0); EOS % 0.2 % (1.0-4.0); HEMATOCRIT 32.8 % (37.0-47.0); HEMOGLOBIN 11.6 g/dl (12.0-16.0); LYMPH # 2.4 10*3/uL (1.3-4.4); LYMPH % 13.7 % (27.0-41.0); MEAN CELL VOLUME 86.1 fl (81.0-99.0); MEAN CORPUSCULAR HGB 30.4 pg (27.0-31.0); MEAN CORPUSCULAR HGB CONC 35.4 g/dl (33.0-37.0); MEAN PLATELET VOLUME 9.9 fl (9.6-12.3); MONO # 1.5 10*3/uL (0.1-1.0); MONO % 8.6 % (3.0-9.0); NEUT # 13.3 10*3/uL (2.3-7.9); NEUT % 76.7 % (47.0-73.0); PLATELET COUNT AUTOMATED 324 10*3/uL (130-400); RED BLOOD COUNT 3.81 10*6/uL (4.10-5.10); WHITE BLOOD COUNT 17.3 10*3/uL (4.8-10.8)
[2017-11-06 17:44] LABS: ACT PARTIAL THROMBO TIME 25.6 SECONDS (20.8-31.5); INTERNATIONAL NORM RATIO 0.9 (2.0-3.5)
[2017-11-06 17:49] LABS: ALBUMIN 3.5 gm/dl (3.1-4.5); ALKALINE PHOSPHATASE 81 U/L (45-117); BUN 17 mg/dl (7-24); CHLORIDE 96 mmol/L (98-107); POTASSIUM 3.7 mmol/L (3.5-5.1); SGOT/AST 17 IU/L (3-35); SGPT/ALT 27 U/L (12-78); SODIUM 131 mmol/L (136-145); TOTAL PROTEIN 8.5 gm/dL (6.4-8.2)
[2017-11-06 17:57] VITALS: BP 140/65
[2017-11-06] MEDS ORDERED: FLUOXETINE HCL60 MG PO (19:53)
[2017-11-06] MEDS ORDERED: TOUJEO SOL300 UNIT/1 SQ (19:55)
[2017-11-06] MEDS ORDERED: ASPIRIN ADULT L81 M1 PO (19:56)
[2017-11-06] MEDS ORDERED: PEPCID40 MG PO (19:56)
[2017-11-06] MEDS ORDERED: LISINOPRIL-HCT1 EACH PO (19:59)
[2017-11-06] MEDS ORDERED: PRILOSEC20 M1 PO (20:00)
[2017-11-06 21:57] LABS: BILIRUBIN NEGATIVE (NEGATIVE); BLOOD NEGATIVE (NEGATIVE); CLARITY CLEAR (CLEAR); COLOR YELLOW (YELLOW); GLUCOSE 2+ (NEGATIVE); KETONE NEGATIVE (NEGATIVE); LEUKO ESTERASE NEGATIVE (NEGATIVE); NITRITE NEGATIVE (NEGATIVE); SPECIFIC GRAVITY <= 1.005 (1.005-1.030)
[2017-11-06 22:01] LABS: BACTERIA 1+; RBC 0-2 rbc/hpf (0-2); WBC 0-2 wbc/hpf (0-5)
[2017-11-07] VITALS (10 sets, daily range): BP systolic 109–126; BP diastolic 57–85
[2017-11-07 06:50] LABS: BASO # 0.1 10*3/uL (0.0-0.1); BASO % 0.5 % (0.0-1.0); EOS # 0.2 10*3/uL (0.0-0.4); EOS % 1.7 % (1.0-4.0); HEMATOCRIT 31.6 % (37.0-47.0); HEMOGLOBIN 10.6 g/dl (12.0-16.0); LYMPH % 28.8 % (27.0-41.0); MEAN CELL VOLUME 88.3 fl (81.0-99.0); MEAN CORPUSCULAR HGB 29.6 pg (27.0-31.0); MEAN CORPUSCULAR HGB CONC 33.5 g/dl (33.0-37.0); MONO % 9.6 % (3.0-9.0); NEUT # 6.2 10*3/uL (2.3-7.9); NEUT % 58.9 % (47.0-73.0); PLATELET COUNT AUTOMATED 301 10*3/uL (130-400); RED BLOOD COUNT 3.58 10*6/uL (4.10-5.10); RED CELL DISTRI WIDTH 12.9 % (0-14.5); WHITE BLOOD COUNT 10.5 10*3/uL (4.8-10.8)
[2017-11-07 06:58] LABS: INTERNATIONAL NORM RATIO 0.9 (2.0-3.5)
[2017-11-07 07:05] LABS: ALBUMIN 2.9 gm/dl (3.1-4.5); ALKALINE PHOSPHATASE 79 U/L (45-117); BUN 17 mg/dl (7-24); CHLORIDE 101 mmol/L (98-107); CHOLESTEROL 146 mg/dL (<200); CREATININE 0.93 mg/dL (0.55-1.02); HDL CHOLESTEROL 34 mg/dl (40-60); LDL CHOLESTEROL 84 mg/dL (9-159); PHOSPHOROUS 3.1 mg/dL (2.5-4.9); SGOT/AST 9 IU/L (3-35); SGPT/ALT 20 U/L (12-78); SODIUM 137 mmol/L (136-145); TRIGLYCERIDES 138 mg/dl (<150); VLDL CHOLESTEROL 28 mg/dL (6-40)
[2017-11-07 07:10] LABS: TOTAL PROTEIN 7.3 gm/dL (6.4-8.2)
[2017-11-07 08:02] LABS: VITAMIN D, 25-HYDROXY 22.2 ng/mL (30-100)
[2017-11-08 08:00] VITALS: BP 112/64
[2017-11-08 12:00] VITALS: BP 118/52
[2017-11-08 16:00] VITALS: BP 104/90
[2017-11-08 16:07] LABS: ACID FAST SPEC PROCESSING Tissue Grinding (.)
[2017-11-08 16:07] LABS: ACID FAST SPEC PROCESSING Tissue Grinding (.)
[2017-11-08 20:00] VITALS: BP 137/69
[2017-11-09] VITALS: BP 130/72
[2017-11-09 08:00] VITALS: BP 120/74
[2017-11-09 12:00] VITALS: BP 103/76
[2017-11-09 16:00] VITALS: BP 109/59
[2017-11-09 20:00] VITALS: BP 115/65
[2017-11-10] VITALS: BP 112/71
[2017-11-10 07:22] LABS: BASO # 0.1 10*3/uL (0.0-0.1); BASO % 0.6 % (0.0-1.0); EOS # 0.3 10*3/uL (0.0-0.4); EOS % 3.4 % (1.0-4.0); HEMATOCRIT 31.4 % (37.0-47.0); HEMOGLOBIN 10.3 g/dl (12.0-16.0); LYMPH # 2.7 10*3/uL (1.3-4.4); LYMPH % 27.2 % (27.0-41.0); MEAN CORPUSCULAR HGB 28.9 pg (27.0-31.0); MEAN CORPUSCULAR HGB CONC 32.8 g/dl (33.0-37.0); MEAN PLATELET VOLUME 9.7 fl (9.6-12.3); MONO # 0.8 10*3/uL (0.1-1.0); MONO % 8.6 % (3.0-9.0); NEUT # 5.8 10*3/uL (2.3-7.9); NEUT % 59.2 % (47.0-73.0); PLATELET COUNT AUTOMATED 369 10*3/uL (130-400); RED BLOOD COUNT 3.57 10*6/uL (4.10-5.10); RED CELL DISTRI WIDTH 12.4 % (0-14.5); WHITE BLOOD COUNT 9.8 10*3/uL (4.8-10.8)
[2017-11-10 07:47] LABS: BUN 16 mg/dl (7-24); CHLORIDE 97 mmol/L (98-107); CREATININE 0.83 mg/dL (0.55-1.02); POTASSIUM 4.1 mmol/L (3.5-5.1); SODIUM 134 mmol/L (136-145)
[2017-11-10 08:00] VITALS: BP 118/76
[2017-11-10 12:00] VITALS: BP 125/92
[2017-11-10 16:00] VITALS: BP 129/61
[2017-11-10 20:00] VITALS: BP 127/61
[2017-11-11] VITALS: BP 129/89
[2017-11-11 06:39] LABS: BASO # 0.1 10*3/uL (0.0-0.1); BASO % 0.6 % (0.0-1.0); EOS # 0.3 10*3/uL (0.0-0.4); EOS % 2.8 % (1.0-4.0); HEMATOCRIT 31.1 % (37.0-47.0); HEMOGLOBIN 10.3 g/dl (12.0-16.0); LYMPH # 2.4 10*3/uL (1.3-4.4); LYMPH % 23.7 % (27.0-41.0); MEAN CELL VOLUME 87.9 fl (81.0-99.0); MEAN CORPUSCULAR HGB 29.1 pg (27.0-31.0); MEAN CORPUSCULAR HGB CONC 33.1 g/dl (33.0-37.0); MEAN PLATELET VOLUME 9.6 fl (9.6-12.3); MONO # 0.9 10*3/uL (0.1-1.0); MONO % 8.7 % (3.0-9.0); NEUT # 6.4 10*3/uL (2.3-7.9); NEUT % 63.2 % (47.0-73.0); PLATELET COUNT AUTOMATED 356 10*3/uL (130-400); RED BLOOD COUNT 3.54 10*6/uL (4.10-5.10); RED CELL DISTRI WIDTH 12.4 % (0-14.5); WHITE BLOOD COUNT 10.2 10*3/uL (4.8-10.8)
[2017-11-11 07:08] LABS: BUN 20 mg/dl (7-24); CHLORIDE 96 mmol/L (98-107); CREATININE 0.95 mg/dL (0.55-1.02); POTASSIUM 4.4 mmol/L (3.5-5.1); SODIUM 132 mmol/L (136-145)
[2017-11-11 08:00] VITALS: BP 134/73
[2017-11-11 12:00] VITALS: BP 125/75
[2017-11-11 16:00] VITALS: BP 132/65
[2017-11-11 20:00] VITALS: BP 131/75
[2017-11-12] VITALS: BP 109/59
[2017-11-12 06:09] LABS: BASO # 0.1 10*3/uL (0.0-0.1); BASO % 0.6 % (0.0-1.0); EOS # 0.3 10*3/uL (0.0-0.4); EOS % 3.5 % (1.0-4.0); HEMATOCRIT 32.6 % (37.0-47.0); HEMOGLOBIN 10.9 g/dl (12.0-16.0); LYMPH # 2.2 10*3/uL (1.3-4.4); LYMPH % 22.2 % (27.0-41.0); MEAN CELL VOLUME 87.6 fl (81.0-99.0); MEAN CORPUSCULAR HGB 29.3 pg (27.0-31.0); MEAN CORPUSCULAR HGB CONC 33.4 g/dl (33.0-37.0); MEAN PLATELET VOLUME 9.7 fl (9.6-12.3); MONO # 0.8 10*3/uL (0.1-1.0); MONO % 7.8 % (3.0-9.0); NEUT # 6.4 10*3/uL (2.3-7.9); NEUT % 64.7 % (47.0-73.0); PLATELET COUNT AUTOMATED 390 10*3/uL (130-400); RED BLOOD COUNT 3.72 10*6/uL (4.10-5.10); RED CELL DISTRI WIDTH 12.5 % (0-14.5); WHITE BLOOD COUNT 9.9 10*3/uL (4.8-10.8)
[2017-11-12 06:25] LABS: BUN 23 mg/dl (7-24); CHLORIDE 97 mmol/L (98-107); CREATININE 0.98 mg/dL (0.55-1.02); POTASSIUM 4.4 mmol/L (3.5-5.1); SODIUM 133 mmol/L (136-145)
[2017-11-12 08:00] VITALS: BP 138/80
[2017-11-12] MEDS ORDERED: VITAMIN D-32000 UNI1 PO (08:18)
[2017-11-12 12:00] VITALS: BP 136/78
[2017-12-19 12:04] LABS: ACID FAST CULTURE Negative (.)
[2017-12-19 12:05] LABS: ACID FAST CULTURE Negative (.)
== END 2017-11-12 13:09 | disposition home health service (06) | DRG 854 ==
LOC: ED 16:51 → EDHOLD 17:10 → 4E 17:10
PROVIDERS: Emergency Medicine; Family Medicine; Internal Medicine; Podiatrist
PROC: 0Y9N0ZZ Drainage of Left Foot, Open Approach (ICD-10-PCS; principal; 2017-11-07)
PROC: 0QBP0ZZ Excision of Left Metatarsal, Open Approach (ICD-10-PCS; 2017-11-07)
PROC: 02H633Z Insertion of Infusion Device into Right Atrium, Percutaneous Approach (ICD-10-PCS; 2017-11-08)
DX: A41.9 Sepsis, unspecified organism (principal); E87.2 Acidosis; L03.116 Cellulitis of left lower limb; E87.1 Hypo-osmolality and hyponatremia; L02.612 Cutaneous abscess of left foot; E11.21 Type 2 diabetes mellitus with diabetic nephropathy; E11.43 Type 2 diabetes mellitus with diabetic autonomic (poly)neuropathy; E11.621 Type 2 diabetes mellitus with foot ulcer; L97.529 Non-pressure chronic ulcer of other part of left foot with unspecified severity; E78.5 Hyperlipidemia, unspecified; I10 Essential (primary) hypertension; K21.9 Gastro-esophageal reflux disease without esophagitis; E55.9 Vitamin D deficiency, unspecified; E53.8 Deficiency of other specified B group vitamins; Z72.0 Tobacco use; Z90.49 Acquired absence of other specified parts of digestive tract; Z98.51 Tubal ligation status; Z79.4 Long term (current) use of insulin; Z79.84 Long term (current) use of oral hypoglycemic drugs; Z79.899 Other long term (current) drug therapy; Z86.73 Personal history of transient ischemic attack (TIA), and cerebral infarction without residual deficits; Z82.49 Family history of ischemic heart disease and other diseases of the circulatory system

== ENCOUNTER 2018-07-09 15:58 | Inpatient (IN) | payer OTHER ==
[~2018-07-09] VITALS: Ht 149.8 cm; Wt 63.7 kg
--- NOTE | ~2018-07-09 | EKG ---
[place], [place] ELECTROCARDIOGRAM REPORT NAME: ERIKA ISIDRO UNIT #: [id number] ROOM: 506 DOCTOR: DOMOANY DRAFT REPORT BIRTHDATE: [address] [facility] Test Date: 2018-07-09 Test Time: 22:09:18 Pat Name: ERIKA ISIDRO Department: Room: 506 Gender: F Salary Manager: : 1965 Requested By: AMRITA HANSEN Order Number: [id number] Reading MD: Adriana Bates MD Measurements Intervals [place] Rate: 82 P: -2 [place]: 151 QRS: -22 QRSD: 73 T: 55 QT: 376 QTc: 439 Interpretive Statements Sinus rhythm Ventricular premature complex Probable left atrial enlargement Borderline left axis deviation Baseline wander in lead(s) V1 Compared to ECG 11/06/2017 17:59:10 Ventricular premature complex(es) now present Sinus tachycardia no longer present Electronically Signed On 07-10-2018 16:04:58 PDT by Adriana Bates MD CM:EKGRPT:ELECTROCARDIOGRAM REPORT 08 1604 AMRITA MIMS DRAFT REPORT AMRITA HANSEN M.D.
--- NOTE | ~2018-07-09 | EKG ---
[place], [place] ELECTROCARDIOGRAM REPORT NAME: ERIKA ISIDRO UNIT #: [id number] ROOM: 506 DOCTOR: FELICITA DRAFT REPORT BIRTHDATE: [birth year] [facility] Test Date: 2018-07-09 Test Time: 19:08:27 Pat Name: ERIKA ISIDRO Department: Room: 506 Gender: F Radiator Core Tester: Saritha Braga : 1965 Requested By: AMRITA HANSEN Order Number: [id number] Reading MD: Adriana Bates MD Measurements Intervals [place] Rate: 97 P: 49 DC: 143 QRS: -34 QRSD: 74 T: 78 QT: 353 QTc: 449 Interpretive Statements Sinus rhythm Left axis deviation Abnormal R-wave progression, late transition Compared to ECG 11/06/2017 17:59:10 Left-axis deviation now present Sinus tachycardia no longer present Electronically Signed On 07-10-2018 16:03:45 PDT by Adriana Bates MD CM:EKGRPT:ELECTROCARDIOGRAM REPORT 1603 AMRITA MIMS DRAFT REPORT AMRITA HANSEN M.D.
--- NOTE | ~2018-07-09 | EKG ---
[place], [place] ELECTROCARDIOGRAM REPORT NAME: ERIKA ISIDRO UNIT #: [id number] ROOM: 506 DOCTOR: FELICITA DRAFT REPORT BIRTHDATE: [birth year] [facility] Test Date: 2018-07-09 Test Time: 16:01:29 Pat Name: ERIKA ISIDRO Department: Room: 506 Gender: F Facilities Maintenance Worker: Saritha Braga : 1965 Requested By: AMRITA HANSEN Order Number: [id number] Reading MD: Adriana Bates MD Measurements Intervals [place] Rate: 87 P: 27 AL: 137 QRS: -3 QRSD: 95 T: 76 QT: 383 QTc: 461 Interpretive Statements Sinus rhythm Ventricular premature complex Borderline low voltage, extremity leads Compared to ECG 11/06/2017 17:59:10 Ventricular premature complex(es) now present Sinus tachycardia no longer present Electronically Signed On 07-10-2018 16:03:06 PDT by Adriana Bates MD CM:EKGRPT:ELECTROCARDIOGRAM REPORT 1601 1603 AMRITA MIMS DRAFT REPORT AMRITA HANSEN M.D.
[~2018-07-09 15:58] MED LIST changes: +ASPIRIN ADULT L81 M1 PO; +FLUOXETINE HCL60 MG PO; +GLUCOPHAGE500 M1 PO; +LISINOPRIL-HCT1 EACH PO; -METFORMIN500 MG PO; +PEPCID40 MG PO; +PRILOSEC20 M1 PO; +TOUJEO SOL300 UNIT/1 SQ; +VITAMIN D-32000 UNI1 PO
[2018-07-09 16:03] VITALS: BP 141/75
[2018-07-09 16:18] VITALS: BP 141/75
[2018-07-09 16:22] LABS: BASO # 0.1 10*3/uL (0.0-0.1); BASO % 0.5 % (0.0-1.0); EOS # 0.2 10*3/uL (0.0-0.4); EOS % 1.5 % (1.0-4.0); LYMPH # 3.9 10*3/uL (1.3-4.4); MEAN CELL VOLUME 83.9 fl (81.0-99.0); MEAN CORPUSCULAR HGB 30.1 pg (27.0-31.0); MEAN CORPUSCULAR HGB CONC 35.9 g/dl (33.0-37.0); MEAN PLATELET VOLUME 10.6 fl (9.6-12.3); MONO # 0.7 10*3/uL (0.1-1.0); MONO % 6.5 % (3.0-9.0); NEUT # 5.7 10*3/uL (2.3-7.9); NEUT % 54.2 % (47.0-73.0); PLATELET COUNT AUTOMATED 324 10*3/uL (130-400); RED BLOOD COUNT 4.65 10*6/uL (4.10-5.10); RED CELL DISTRI WIDTH 12.5 % (0-14.5); WHITE BLOOD COUNT 10.5 10*3/uL (4.8-10.8)
[2018-07-09 16:37] LABS: ACT PARTIAL THROMBO TIME 20.2 SECONDS (20.8-31.5); INTERNATIONAL NORM RATIO 0.9 (2.0-3.5)
[2018-07-09 16:47] LABS: ALBUMIN 3.8 gm/dl (3.1-4.5); ALKALINE PHOSPHATASE 102 U/L (45-117); BUN 30 mg/dl (7-24); CHLORIDE 97 mmol/L (98-107); CREATININE 1.08 mg/dL (0.55-1.02); POTASSIUM 4.7 mmol/L (3.5-5.1); SGOT/AST 30 IU/L (3-35); SGPT/ALT 31 U/L (12-78); SODIUM 134 mmol/L (136-145); TOTAL PROTEIN 7.7 gm/dL (6.4-8.2)
[2018-07-09 16:49] LABS: TROPONIN I 0.439 ng/ml (<0.045)
[2018-07-09 18:01] VITALS: BP 138/68
[2018-07-09 18:50] VITALS: BP 136/78
[2018-07-09 20:00] VITALS: BP 129/67
[2018-07-09 20:10] VITALS: BP 129/67
--- NOTE | 2018-07-09 20:10 | NUR ---
A 53, admitted to 5E, under the services of LEODAN Santos DO with a diagnosis of ELEVATED TROPONIN 1 LEVEL, CHEST PAIN AT REST. Chief complaint is CHEST PAIN. Patient arrived via ambulatory from ER. Monitor applied. Initial assessment completed. Vital signs taken and recorded. LEODAN SANTOS DO notified of admission to the unit. Orders received. See assessment for past medical history, medications and allergies. Patient and/or family oriented to unit. visitation policy reviewed. Clothing/patient valuable form completed. CHELLE BOWDEN
[2018-07-09] MEDS ORDERED: BASAG SOL SQ (21:04)
--- NOTE | 2018-07-09 21:30 | NUR ---
DR. LOPEZ NOTIFIED THAT PATIENT'S HOME MED REQ IS UP TO DATE PER CLAIM HISTORY BUT PATIENT'S LIST IS NOT UP TO DATE. SAID TO HAVE DAYLIGHT CALL PHARMACY IN AM.
--- NOTE | 2018-07-09 23:00 | NUR ---
DR. LAONSO'S ANSWERING SERVICE NOTIFIED OF CONSULT FOR PATIENT FOR CHEST PAIN AND ?NSTEMI.
--- NOTE | 2018-07-09 23:07 | NUR ---
DR. LOPEZ NOTIFIED OF CRITICAL TROPONIN OF 0.499.
[2018-07-10] VITALS: BP 116/56
--- NOTE | 2018-07-10 02:35 | NUR ---
APTT 29.5. RATE INCREASED BY 2U/KG/HR.RATE INCREASED TO 9ML/HR. NEXT APTT TO BE DRAWN AT 0730.
[2018-07-10 06:25] LABS: BASO # 0.1 10*3/uL (0.0-0.1); BASO % 0.6 % (0.0-1.0); EOS # 0.2 10*3/uL (0.0-0.4); EOS % 2.7 % (1.0-4.0); HEMATOCRIT 39.2 % (37.0-47.0); HEMOGLOBIN 13.4 g/dl (12.0-16.0); LYMPH # 3.9 10*3/uL (1.3-4.4); LYMPH % 43.4 % (27.0-41.0); MEAN CELL VOLUME 86.2 fl (81.0-99.0); MEAN CORPUSCULAR HGB 29.5 pg (27.0-31.0); MEAN CORPUSCULAR HGB CONC 34.2 g/dl (33.0-37.0); MEAN PLATELET VOLUME 10.3 fl (9.6-12.3); MONO # 0.7 10*3/uL (0.1-1.0); MONO % 8.2 % (3.0-9.0); NEUT % 44.8 % (47.0-73.0); PLATELET COUNT AUTOMATED 284 10*3/uL (130-400); RED BLOOD COUNT 4.55 10*6/uL (4.10-5.10); RED CELL DISTRI WIDTH 12.4 % (0-14.5)
[2018-07-10 06:43] LABS: BUN 25 mg/dl (7-24); CHLORIDE 104 mmol/L (98-107); CHOLESTEROL 144 mg/dL (<200); CREATININE 0.89 mg/dL (0.55-1.02); HDL CHOLESTEROL 32 mg/dl (40-60); LDL CHOLESTEROL 81 mg/dL (9-159); PHOSPHOROUS 4.2 mg/dL (2.5-4.9); POTASSIUM 4.3 mmol/L (3.5-5.1); SODIUM 137 mmol/L (136-145); TRIGLYCERIDES 155 mg/dl (<150); VLDL CHOLESTEROL 31 mg/dL (6-40)
[2018-07-10] MEDS ORDERED: GLIPIZIDE5 MG PO (07:09)
[2018-07-10] MEDS ORDERED: MELOXICAM15 MG PO (07:09)
[2018-07-10 08:00] VITALS: BP 114/60
[2018-07-10 12:00] VITALS: BP 113/55
--- NOTE | 2018-07-10 13:37 | NUR ---
Processing Tech in to talk to patient. Patient states lives at HOME with AND KIDS. There are NO steps in the home. Physician: MARY ALVARENGA [facility]acy: [email or web address] services: NONE Patient's level of ADLs: INDEPENDENT Patient has working utilities: YES DME: NONE Follow-up physician's appointment after d/c: WILL BE MADE BY HOSPITALIST NURSE DIRECTOR ON DISCHARGE Does patient want to access PORTAL?: NO Discharge plan PT LIVES AT HOME WITH HER FAMILY AND PLANS TO RETURN HOME ON DISCHARAGE. DENIES ANY HOME NEEDS AT THIS TIME. CAN BE DISCHARGED TO HOME WHEN MEDICALLY STABLE. PT WILL HAVE A RIDE HOME. WILL CONTINUE TO FOLLOW.. GABBY JACOBS
[2018-07-10 16:00] VITALS: BP 97/56
[2018-07-10 20:00] VITALS: BP 119/68
[2018-07-11] VITALS: BP 107/58
--- NOTE | 2018-07-11 07:38 | NUR ---
PATIENT RESTING QUIETLY IN BED. DENIES ANY SOB. DENIES ANY CHEST PAIN/DISCOMFORT AT THIS TIME. PT CURRENTLY NPO FOR SCHEDULED STRESS TEST. VSS. WILL CONTINUE TO MONITOR. HEPARIN GTT MAINTAINED. CALL LIGHT WITHIN REACH.
[2018-07-11 08:00] VITALS: BP 117/67
[2018-07-11 08:40] LABS: BUN 21 mg/dl (7-24); CHLORIDE 104 mmol/L (98-107); CREATININE 0.86 mg/dL (0.55-1.02); POTASSIUM 4.5 mmol/L (3.5-5.1); SODIUM 134 mmol/L (136-145)
[2018-07-11 08:47] LABS: BASO # 0.1 10*3/uL (0.0-0.1); BASO % 0.6 % (0.0-1.0); EOS # 0.2 10*3/uL (0.0-0.4); EOS % 2.6 % (1.0-4.0); HEMATOCRIT 40.1 % (37.0-47.0); HEMOGLOBIN 13.8 g/dl (12.0-16.0); LYMPH # 3.7 10*3/uL (1.3-4.4); LYMPH % 40.7 % (27.0-41.0); MEAN CELL VOLUME 86.6 fl (81.0-99.0); MEAN CORPUSCULAR HGB 29.8 pg (27.0-31.0); MEAN CORPUSCULAR HGB CONC 34.4 g/dl (33.0-37.0); MEAN PLATELET VOLUME 10.4 fl (9.6-12.3); MONO # 0.6 10*3/uL (0.1-1.0); MONO % 6.5 % (3.0-9.0); NEUT # 4.5 10*3/uL (2.3-7.9); NEUT % 49.4 % (47.0-73.0); PLATELET COUNT AUTOMATED 286 10*3/uL (130-400); RED BLOOD COUNT 4.63 10*6/uL (4.10-5.10); RED CELL DISTRI WIDTH 12.2 % (0-14.5)
--- NOTE | 2018-07-11 09:08 | NUR ---
APTT 48.1. HEPARIN GTT INCREASED BY 2 UNITS PER POLICY. HEPARIN GTT INFUSING AT 24 UNITS/KG. WILL RECHECK APTT IN 6 HOURS PER POLICY.
--- NOTE | 2018-07-11 09:26 | NUR ---
PT OFF FLOOR FOR SCHEDULED STRESS TEST.
--- NOTE | 2018-07-11 09:45 | NUR ---
INFORMED CONSENT OBTAINED FOR LEXISCAN NUCLEAR STRESS TEST WITH DR. ALONSO. RESTING EKG NSR WITH A RESTING HR OF 75 WITH BP OF 118/62. LUNGS CLEAR WITH SPO2 OF 99% ON ROOM AIR. PT COMPLETED A 1:00 LEXISCAN PROTOCOL RECEIVING LEXISCAN 0.4 MG IV OVER 10 SECONDS. HAD NO CHEST PAIN OR ANY EKG CHANGES. HAD C/O NAUSEA, ABDOMINAL CRAMPING AND HEADACHE THAT ALL RESOLVED IN RECOVERY. HAD A PEAK HR OF 95 WITH BP OF 102/48. LAST RECOVERY HR OF 89 WITH BP OF 112/60. AWAITING SCANNING IN STABLE CONDITION.
--- NOTE | 2018-07-11 11:43 | NUR ---
ON FLOOR AND THIS NURSE INFORMED REGARDING POSITIVE STRESS TEST. PT WILL BE TRANSFERRED TOMORROW FOR HEART CATH.
[2018-07-11 12:00] VITALS: BP 108/49
--- NOTE | 2018-07-11 12:50 | NUR ---
Visited patient to provide an 1800 calorie diabetic diet and diet education. Patient was uninterested and refused education. The diet copy was left in the room with the patient and her family. Mylene SANCHEZ Dietetic Student
[2018-07-11 16:00] VITALS: BP 121/79
--- NOTE | 2018-07-11 16:22 | NUR ---
PATIENT REQUESTING NEURONTIN CLOSER TO BEDTIME. WILL HOLD 1800 DOSE AT THIS TIME.
[2018-07-11] MEDS ORDERED: METOPROLOL SUCC25 M2 PO (16:47)
--- NOTE | 2018-07-11 16:57 | NUR ---
TRANSFER PACKET SIGNED BY PATIENT. AWAITING FOR PHYSICIAN TO ENTER DISCHARGE ORDER.
--- NOTE | 2018-07-11 17:23 | NUR ---
NOTIFIED REGARDING DISCHARGE ORDER FOR TRANSFER TOMORROW.
--- NOTE | 2018-07-11 17:45 | NUR ---
TRANSFER PACKET COMPLETE AT THIS TIME.
[2018-07-11 20:00] VITALS: BP 124/70
--- NOTE | 2018-07-11 20:40 | NUR ---
24 HR chart check completed.
--- NOTE | 2018-07-11 21:00 | NUR ---
SITTING AT BEDSIDE WITH NO DISTRESS NOTED. RESPIRATIONS EASY. LUNGS DIMINISHED, CLEAR. PULSE OX 94% RA. OFFERED AND EDUCATED REGARDING TEDS, DECLINED. HEPARIN INFUSING PER ORDER. CALL LIGHT WITHIN REACH. NO VOICED COMPLAINTS
--- NOTE | 2018-07-11 23:00 | NUR ---
DISCUSSED NPO STATUS FOR HEART CATH IN AM. VOICED UNDERSTANDING
[2018-07-12] VITALS: BP 137/59
--- NOTE | 2018-07-12 00:30 | NUR ---
SLEEPING. NO DISTRESS NOTED. RESPIRATIONS EASY. VSS. CALL LIGHT WITHIN REACH.
--- NOTE | 2018-07-12 06:00 | NUR ---
SLEPT THROUGHOUT NIGHT WITH NO DISTRESS NOTED. RESPIRATIONS EASY. HEPARIN DRIP MAINTAINED. NPO STATUS FOR CARDIAC CATH. CALL LIGHT WITHIN REACH. NO VOICED COMPLAINTS THIS SHIFT
--- NOTE | 2018-07-12 06:45 | NUR ---
PTT 98.2, HEPARIN HELD AND ADJUSTED PER POLICY
--- NOTE | 2018-07-12 08:46 | NUR ---
CCDIS Discharge instructions reviewed with patient/family. Patient receptive and verbalizes understanding. Follow-up care arranged. Written instructions given to patient/family. DOE CHENG
== END 2018-07-12 08:46 | disposition short-term general hospital (02) | DRG 280 ==
LOC: ED 15:58 → 5E 18:13 → EDHOLD 18:13 → 5E 19:32
PROVIDERS: Emergency Medicine; Student in an Organized Health Care Education/Training Program; ADMIT Internal Medicine
PROC: 4A02XM4 Measurement of Cardiac Total Activity, External Approach (ICD-10-PCS; principal; 2018-07-11)
PROC: 3E073KZ Introduction of Other Diagnostic Substance into Coronary Artery, Percutaneous Approach (ICD-10-PCS; 2018-07-11)
DX: I21.4 Non-ST elevation (NSTEMI) myocardial infarction (principal); N17.0 Acute kidney failure with tubular necrosis; E44.1 Mild protein-calorie malnutrition; E87.1 Hypo-osmolality and hyponatremia; I10 Essential (primary) hypertension; K21.9 Gastro-esophageal reflux disease without esophagitis; F17.210 Nicotine dependence, cigarettes, uncomplicated; E11.40 Type 2 diabetes mellitus with diabetic neuropathy, unspecified; E11.65 Type 2 diabetes mellitus with hyperglycemia; E87.8 Other disorders of electrolyte and fluid balance, not elsewhere classified; E78.5 Hyperlipidemia, unspecified; Z79.4 Long term (current) use of insulin; Z86.73 Personal history of transient ischemic attack (TIA), and cerebral infarction without residual deficits; Z79.84 Long term (current) use of oral hypoglycemic drugs; Z71.6 Tobacco abuse counseling; Z82.49 Family history of ischemic heart disease and other diseases of the circulatory system; Z79.899 Other long term (current) drug therapy; Z79.82 Long term (current) use of aspirin; Z68.28 Body mass index [BMI] 28.0-28.9, adult

== ENCOUNTER 2018-10-10 10:18 | Inpatient (IN) | payer OTHER ==
[~2018-10-10] VITALS: Ht 149.9 cm; Wt 59.5 kg
[2018-10-10] VITALS (8 sets, daily range): BP systolic 85–140; BP diastolic 50–80
--- NOTE | ~2018-10-10 | O ---
[place], [place] OPERATIVE NOTE NAME: ERIKA ISIDRO UNIT #: [id number] ROOM: 402 DOCTOR: ELIER CLAROS DPM BIRTHDATE: [birth year] DOS: 10/10/2018 PREOPERATIVE DIAGNOSIS: Abscess, left foot with possible osteomyelitis of the metatarsals 1, 2, left foot. POSTOPERATIVE DIAGNOSIS: Abscess, left foot with possible osteomyelitis of the metatarsals 1, 2, left foot, pending pathology. PROCEDURE: Incision and drainage, left foot with bone biopsy of the metatarsals wound, to left foot. ESTIMATED BLOOD LOSS: 4 mL. SPECIMENS: Bone, first and second left metatarsals. DRAINS: None. PACKING: Half inch plain packing. INTERIOR DECORATOR: Dr. Mega Elam DPM and Mega Culver. ANESTHESIA: LMAC. COMPLICATIONS: None. DESCRIPTION PROCEDURE: The patient was brought to the operating room and placed on the operating table in supine position. Anesthesia administered per Anesthesia Department. The left foot was prepped and draped in usual aseptic manner. Local block was utilized consisting of 10 mL of 0.5% Marcaine plain. Attention was directed to plantar first left MPJ where an ulceration was noted with abscess and purulent drainage. [place] elevator was utilized and the abscess probed proximally and distally. A #15 blade was utilized to incise the area and was open to the level of the bone. The wound was also noted to track over to the second metatarsal head. At this time, all necrotic nonviable tissue was excised with a rongeur. Next, a Jamshidi needle was utilized to obtain bone specimens from the first metatarsal, which were sent for bone biopsy and also for cultures consisting of Gram stain, aerobic, anaerobic, acid fast and fungal cultures. The separate culture was also sent of the soft tissue. Jamshidi was also utilized to perform a biopsy of bone to the second left metatarsal, which was sent to pathology. Next, pulse power irrigation was utilized with sterile saline and a sterile compressive dressing was then applied after applying half-inch plain packing with wet to dry dressings with 4 x 4s, ABD, Kerlix and Yordan bandage. The patient tolerated the procedures and anesthesia well and left the OR with vital signs stable and neurovascular status intact. The patient will return to the nursing unit, resume previous orders. Antibiotics per Infectious Disease and the patient will be seen tomorrow with order for a wound VAC to be applied tomorrow. [place], [place] OPERATIVE NOTE NAME: SANNAERIKA UNIT #: [id number] ROOM: [facility] DOCTOR: ELIER CLAROS DPM BIRTHDATE: [birth year] ELIER CLAROS DPM CM:OPRECORD:OPERATIVE NOTE 0944 1059 ELIER CLAROS DPM 10/11/18 1100 interface
[~2018-10-10 10:18] MED LIST changes: +BASAG SOL SQ; +MELOXICAM15 MG PO; +METOPROLOL SUCC25 M2 PO
[2018-10-10 11:14] LABS: BASO % 0.2 % (0.0-1.0); EOS % 0.3 % (1.0-4.0); HEMATOCRIT 31.5 % (37.0-47.0); HEMOGLOBIN 10.7 g/dl (12.0-16.0); LYMPH # 2.1 10*3/uL (1.3-4.4); LYMPH % 13.8 % (27.0-41.0); MEAN CELL VOLUME 90.3 fl (81.0-99.0); MEAN CORPUSCULAR HGB 30.7 pg (27.0-31.0); MEAN PLATELET VOLUME 9.3 fl (9.6-12.3); MONO # 1.1 10*3/uL (0.1-1.0); MONO % 6.8 % (3.0-9.0); NEUT # 12.1 10*3/uL (2.3-7.9); NEUT % 78.4 % (47.0-73.0); PLATELET COUNT AUTOMATED 435 10*3/uL (130-400); RED BLOOD COUNT 3.49 10*6/uL (4.10-5.10); RED CELL DISTRI WIDTH 13.3 % (0-14.5); WHITE BLOOD COUNT 15.5 10*3/uL (4.8-10.8)
[2018-10-10 11:28] LABS: ACT PARTIAL THROMBO TIME 25.3 SECONDS (20.0-32.1); INTERNATIONAL NORM RATIO 0.9 (2.0-3.5)
[2018-10-10 11:29] LABS: ALBUMIN 3.6 gm/dl (3.1-4.5); CREATININE 1.47 mg/dL (0.55-1.02); POTASSIUM 3.8 mmol/L (3.5-5.1); TOTAL PROTEIN 8.7 gm/dL (6.4-8.2)
--- NOTE | 2018-10-10 11:48 | NUR ---
DOROTHY BERRIOS NOTIFIED OF LATIC ACID OF 2.6
--- NOTE | 2018-10-10 12:41 | NUR ---
A 53, admitted to , under the services of LEODAN Santos DO with a diagnosis of OSTEOMYELITIS, SEPSIS. Chief complaint is WOUND FOOT PAIN. Patient arrived via ambulatory from ER. Monitor applied. Initial assessment completed. Vital signs taken and recorded. LEODAN SANTOS DO notified of admission to the unit. Orders received. See assessment for past medical history, medications and allergies. Patient and/or family oriented to unit. 4TH FLOOR ROOM 402-2 visitation policy reviewed. Clothing/patient valuable form completed. KRISTY COKER
--- NOTE | 2018-10-10 12:56 | NUR ---
PATIENT DENIED ANY OTHER WOUNDS.
[2018-10-10] MEDS ORDERED: BRILINTA90 M1 PO (14:25)
[2018-10-10] MEDS ORDERED: VITAMIN D32000 UNIT PO (14:26)
[2018-10-10] MEDS ORDERED: STEGLATRO15 MG PO (14:27)
--- NOTE | 2018-10-10 16:42 | NUR ---
Podiatry resident states that consult order was never put in on pt. States they are taking pt to OR but need order. I spoke with primary Rn Josephine regarding reason for consult, states it is wound to left foot.
--- NOTE | 2018-10-10 19:18 | NUR ---
CALL PLACED TO PHARMACY, PATIENT WAS OFF THE FLOOR ANS UNAVAILABLE WHEB ZOSYN DUE, NO ZOSYN AVAIABLE, SPOKE WITH OMAR HE AGREES TO SEND DOWN AND CHANGE TIMES ON DOSES DUE.
--- NOTE | 2018-10-10 20:06 | NUR ---
1939 RESTING IN BED WITH HOB ELEVATED. SIDE RAILS UP X'S 2. CALL LIGHT IN REACH. BOXLUNCH OBTAINED PER PT REQUSET. HEP LOCK INTACT. DRS D/I LEFT FOOT WITH NO VISIBLE DRNG NOTED AT PRESENT. NO C/O'S PAIN VOICED.
[2018-10-10 20:16] LABS: BILIRUBIN NEGATIVE (NEGATIVE); BLOOD NEGATIVE (NEGATIVE); CLARITY SL CLOUDY (CLEAR); COLOR YELLOW (YELLOW); GLUCOSE 3+ (NEGATIVE); KETONE NEGATIVE (NEGATIVE); LEUKO ESTERASE TRACE (NEGATIVE); NITRITE NEGATIVE (NEGATIVE); PH 5.5 (5.0-9.0); SPECIFIC GRAVITY 1.015 (1.005-1.030); UROBILINOGEN 0.2 E.U./dl (0.2-1.0)
[2018-10-10 20:22] LABS: BACTERIA 1+
--- NOTE | 2018-10-10 22:05 | NUR ---
RESTING IN BED WITH EYES CLOSED. APPEARS TO BE SLEEPING. IV FLUIDS INFUSING WELL.
[2018-10-11] VITALS: BP 119/67
--- NOTE | 2018-10-11 00:09 | NUR ---
REMAINS SLEEPING WITHOUT DISTRESS.
--- NOTE | 2018-10-11 00:30 | NUR ---
0025 MEDICATED WITH MORCO 1 PO FOR C/O'S PAIN LEFT FOOT. WILL MONITOR.
--- NOTE | 2018-10-11 01:47 | NUR ---
EARLIER PAIN MED NOT EFFECTIVE. DR. BLACKMON HERE AND NOTIFIED.
--- NOTE | 2018-10-11 02:18 | NUR ---
0215 ONE TIME DOSE OF MORPHINE 1MG IV GIVEN ORDERED. WILL MONITOR.
--- NOTE | 2018-10-11 02:45 | NUR ---
EARLIER PAIN MED EFFECTIVE. RESTING IN BED WITH EYES CLOSED.
--- NOTE | 2018-10-11 06:05 | NUR ---
REMAINS SLEEPING WITHOUT DISTRESS. CONDITION GUARDED.
--- NOTE | 2018-10-11 06:14 | NUR ---
NORCO PO GIVEN PRIOR TO CHANGING DRSG TO LEFT FOOT.
--- NOTE | 2018-10-11 06:15 | NUR ---
Spoke with Dr. Elam regarding wound vac dressing orders to see if bone was exposed prior to dressing removal he stated to use white foam on the bone and apply the black foam on top.
--- NOTE | 2018-10-11 06:16 | NUR ---
Brandee LOVING VALVE AND REGULATOR REPAIRER TALKED WITH DR. MAHMOOD REGARDING WOUND CARE ORDERS. ATIYAG REMOVED LEFT FOOT.
--- NOTE | 2018-10-11 06:50 | NUR ---
SL RELIEF OBTAINED FROM EARLIER [place]. DRSG AND WOUND VAC APPLIED PER ORDER. PT REFUSED POST -OP WOUND PHOTOS.
--- NOTE | 2018-10-11 07:00 | NUR ---
SANNAERIKA ESPANA [id number] Please refer to the physician's history and physical for past medical history, comorbid conditions, and allergies. Diagnosis: SEVERE SEPSIS OSTEOMYELITIS Jorge Score: 15,AT RISK WOUND DESCRIPTIONS: Wound Vac changed to left foot per md order of 125mmHg continous with low intensity white foam over bone then black foam on top. Wound was cleansed with with nss per order. Wound vac is due to be change every Sun-Wed-Sun if any question contact podiatry. Patient tolerated procedure well with minimal amounts of pain. Trinidad Benítez RN nurse caring for patient assisted in wound vac change. Wound Number: 1 Location of the wound: left foot Type of wound: surgical Thickness: Full Size: 4.6cm x 2.0cm x 1.5cm Tunneling: none Undermining: none Sinus Tract: none Presence of Exudate: Serosanguineous Amount: Heavy Color: Red Odor: None Periwound Skin Appearance: Normal Wound edges: approximated Pain (associated with wound): tender to touch How does patient state this happened? pt stated that this started a week ago but was unable to get in to see podiatry until October 30 so that is why she came into the hosptial. Patient stated she was to follow with Dr. Ontiveros there. Surface the patient is resting on: Isoflex SKIN PREVENTION RECOMMENDATION: 1. Pressure redistribution support surface as appropriate 2. Elevate heels 3. Remove boots/TEDS every shift and reapply 4. Head of bed 30 degrees as tolerated 5. Assess nutrition and hydration 6. Manage moisture 7. Avoid the use of containment devices while in bed 8. Use absorptive products on surfaces limit layers of linens on bed 9. Turn and reposition every 1-2 hours in bed and every 1 hour in chair as tolerated 10. Weight shifts every 15 minutes while up in chair 11. Offloading with pillows or device to keep heels elevated off bed 12. Monitor skin at least every shift 13. Inspect under medical devices twice a day WOUND TREATMENT RECOMMENDATIONS: Continue wound vac dressing order per podiatry to left foot.
[2018-10-11 07:48] LABS: ALBUMIN 2.7 gm/dl (3.1-4.5); ALKALINE PHOSPHATASE 77 U/L (45-117); BUN 26 mg/dl (7-24); CHLORIDE 103 mmol/L (98-107); CREATININE 1.06 mg/dL (0.55-1.02); PHOSPHOROUS 3.9 mg/dL (2.5-4.9); POTASSIUM 4.3 mmol/L (3.5-5.1); SGOT/AST 90 IU/L (3-35); SGPT/ALT 53 U/L (12-78); SODIUM 135 mmol/L (136-145); TOTAL PROTEIN 6.7 gm/dL (6.4-8.2)
[2018-10-11 07:54] LABS: THYROID STIM HORMONE (HS) 0.961 uIU/ml (0.358-4.75)
[2018-10-11 08:00] VITALS: BP 110/66
[2018-10-11 08:19] LABS: VITAMIN D, 25-HYDROXY 28.4 ng/mL (30-100)
[2018-10-11 09:05] LABS: BASO % 0.3 % (0.0-1.0); EOS # 0.1 10*3/uL (0.0-0.4); EOS % 0.7 % (1.0-4.0); HEMATOCRIT 26.4 % (37.0-47.0); HEMOGLOBIN 8.7 g/dl (12.0-16.0); LYMPH # 1.5 10*3/uL (1.3-4.4); LYMPH % 11.3 % (27.0-41.0); MEAN CELL VOLUME 92.6 fl (81.0-99.0); MEAN CORPUSCULAR HGB 30.5 pg (27.0-31.0); MEAN PLATELET VOLUME 9.9 fl (9.6-12.3); MONO # 1.2 10*3/uL (0.1-1.0); MONO % 9.4 % (3.0-9.0); NEUT % 77.8 % (47.0-73.0); PLATELET COUNT AUTOMATED 362 10*3/uL (130-400); RED BLOOD COUNT 2.85 10*6/uL (4.10-5.10); RED CELL DISTRI WIDTH 13.3 % (0-14.5); WHITE BLOOD COUNT 12.8 10*3/uL (4.8-10.8)
[2018-10-11 12:00] VITALS: BP 92/53
--- NOTE | 2018-10-11 14:10 | NUR ---
Nutritional Support Services Note: Pt is ordered an 1800cal diabetic diet with Glucerna Os po TID. Staff to encourage intake of all meals and supplement. Refuses diet education, had received a diet copy in the past. No other nutrition intervention needed at this time. Will follow as needed. Ashley Joe Rdn Ld
--- NOTE | 2018-10-11 15:32 | NUR ---
Magistrate Judge in to talk to patient. Patient states lives at home with . There are few steps in the home. Physician: amy paul Pharmacy: [facility] Home health services: none Patient's level of ADLs: MINIMAL ASSIST Patient has working utilities: all working DME: none Follow-up physician's appointment after d/c: will be made by hospitalist nurse director upon discharge Does patient want to access PORTAL?: no Discharge plan discussed with patient, she states she lives at home is independent in adls and ambualtion, she states she will be returning home at this time denies any home needs. BRI MOLINA
[2018-10-11 16:00] VITALS: BP 115/78
--- NOTE | 2018-10-11 19:27 | NUR ---
PT GIVEN NORCO AT THIS TIME DUE LEFT FOOT PAIN. WILL HAVE PM SHIFT NURSE MONITOR FOR EFFECTIVENESS. CALL LIGHT IN REACH.
--- NOTE | 2018-10-11 20:02 | NUR ---
IN TO HANG PATIENTS IV, PATIENT STATED THAT THE IV WAS BURNING A LITTLE BIT, THIS NURSE OFFERED TO MOVE THE IV SITE FOR THE PATIENT. PATIENT ADEMENTLY REFUSED STATED THAT SHE WILL BE LEAVING ON SUNDAY AND WERE AREN'T GOING TO "STICK ME WITH ANY MORE DAMN NEEDLES, I'LL LIVE". SITE APPEARS ASYMTPOMATIC AND IS NOT SWOLLEN OR REDDENED. CALL LIGHT WITHIN REACH, WILL MONITOR
[2018-10-12] VITALS: BP 102/53
--- NOTE | 2018-10-12 01:43 | NUR ---
24 HR chart check completed.
--- NOTE | 2018-10-12 02:55 | NUR ---
SPOKE WITH DR. BLACKMON AT THIS TIME. NOTIFIED HIM THAT PER DR. ARMAS'S NOTE, THAT SHE WAS GOING TO STOP IV FLUIDS. BUT THE IV FLUIDS THAT WERE STOPPED WERE THE FLUIDS FROM OR. HE STATED THAT IT WAS OK TO D/C FLUIDS
[2018-10-12 06:46] LABS: BASO % 0.4 % (0.0-1.0); EOS # 0.2 10*3/uL (0.0-0.4); EOS % 2.1 % (1.0-4.0); HEMATOCRIT 27.7 % (37.0-47.0); LYMPH # 2.2 10*3/uL (1.3-4.4); MEAN CELL VOLUME 91.1 fl (81.0-99.0); MEAN CORPUSCULAR HGB 29.6 pg (27.0-31.0); MEAN CORPUSCULAR HGB CONC 32.5 g/dl (33.0-37.0); MEAN PLATELET VOLUME 9.8 fl (9.6-12.3); MONO # 0.7 10*3/uL (0.1-1.0); MONO % 7.9 % (3.0-9.0); NEUT # 5.7 10*3/uL (2.3-7.9); NEUT % 64.2 % (47.0-73.0); PLATELET COUNT AUTOMATED 360 10*3/uL (130-400); RED BLOOD COUNT 3.04 10*6/uL (4.10-5.10); RED CELL DISTRI WIDTH 13.3 % (0-14.5); WHITE BLOOD COUNT 8.9 10*3/uL (4.8-10.8)
[2018-10-12 07:14] LABS: ALBUMIN 2.8 gm/dl (3.1-4.5); BUN 18 mg/dl (7-24); CHLORIDE 105 mmol/L (98-107); POTASSIUM 4.3 mmol/L (3.5-5.1); SGOT/AST 32 IU/L (3-35); SGPT/ALT 51 U/L (12-78); SODIUM 137 mmol/L (136-145); TOTAL PROTEIN 7.3 gm/dL (6.4-8.2)
[2018-10-12 07:16] LABS: ALKALINE PHOSPHATASE 86 U/L (45-117)
[2018-10-12 08:00] VITALS: BP 117/66
--- NOTE | 2018-10-12 08:50 | NUR ---
PT MEDICATED WITH NORCO AT THIS TIME 10/10 PAIN IN LEFT FOOT. WILL MONITOR FOR EFFECTIVENESS.
--- NOTE | 2018-10-12 10:00 | NUR ---
PRN MEDICATION HAS BEEN EFFECTIVE; NO FURTHER COMPLAINTS.
[2018-10-12 11:52] VITALS: BP 103/56
--- NOTE | 2018-10-12 14:28 | NUR ---
PT MEDICATED WITH NORCO AT THIS TIME FOR COMPLAINTS OF 7/10 PAIN IN LEFT FOOT. WILL MONITOR FOR EFFECTIVENESS.
[2018-10-12 16:07] VITALS: BP 116/66
--- NOTE | 2018-10-12 19:34 | NUR ---
IN TO ASSESS PATIENT AT THIS TIME, PATIENT REFUSING ASSESSMENT BECAUSE SHE IS EATING. BLOOD SUGAR CHECKED AND PAIN PILL GIVEN FOR COMPLAINTS OF PAIN RATING IT 8/10. CALL LIGHT WITHIN REACH, WILL MONITOR
--- NOTE | 2018-10-12 19:40 | NUR ---
PATIENT STATED THAT ALMOST IMMEDIATELY HER PAIN PILL WAS EFFECTIVE, CALL LIGHT WITHIN REACH, WILL MONITOR
[2018-10-12 20:00] VITALS: BP 113/93
[2018-10-13] VITALS: BP 114/69
--- NOTE | 2018-10-13 02:23 | NUR ---
24 HR chart check completed.
--- NOTE | 2018-10-13 03:37 | NUR ---
EXPLAINED TO PATIENT THAT THIS NURSE WAS NOT GOING TO RUN ANYTHING ELSE THROUGH AN IV THAT WAS CAUSING HER PAIN AND BURNING. EXPLAINED TO HER THAT IT IS STARTING TO SWELL AND WE DONT' NEED ANY MORE PROBLEMS OR WOUNDS FOR HER. SHE STATED IT WAS FINE AND WILL BE OK TO FINISH THE ATB. THIS NURSE STATED THAT I NEED TO START A NEW IV. PATIENT RELUCTANTLY ALLOWED FOR THE DISCONTINUATION OF THE IV IN THE RIGHT AC THAT HAS BEEN SWOLLEN AND PAINFUL FOR TWO DAYS. NEW IV RESTARTED IN THE LEFT AC #22 GUAGE. IV VANCOMYCIN HOOKED UP WITHOUT ISSUE. CALL [facility] WITHIN REACH, WILL MONITOR
[2018-10-13 06:47] LABS: BASO # 0.1 10*3/uL (0.0-0.1); BASO % 0.8 % (0.0-1.0); EOS # 0.2 10*3/uL (0.0-0.4); EOS % 2.7 % (1.0-4.0); HEMATOCRIT 26.7 % (37.0-47.0); HEMOGLOBIN 8.7 g/dl (12.0-16.0); LYMPH % 25.5 % (27.0-41.0); MEAN CELL VOLUME 91.4 fl (81.0-99.0); MEAN CORPUSCULAR HGB 29.8 pg (27.0-31.0); MEAN CORPUSCULAR HGB CONC 32.6 g/dl (33.0-37.0); MEAN PLATELET VOLUME 9.6 fl (9.6-12.3); MONO # 0.7 10*3/uL (0.1-1.0); MONO % 8.7 % (3.0-9.0); NEUT # 4.8 10*3/uL (2.3-7.9); NEUT % 61.5 % (47.0-73.0); PLATELET COUNT AUTOMATED 365 10*3/uL (130-400); RED BLOOD COUNT 2.92 10*6/uL (4.10-5.10); RED CELL DISTRI WIDTH 13.2 % (0-14.5); WHITE BLOOD COUNT 7.8 10*3/uL (4.8-10.8)
[2018-10-13 07:00] LABS: ALBUMIN 2.6 gm/dl (3.1-4.5); ALKALINE PHOSPHATASE 74 U/L (45-117); BUN 17 mg/dl (7-24); CHLORIDE 105 mmol/L (98-107); CREATININE 0.85 mg/dL (0.55-1.02); POTASSIUM 4.5 mmol/L (3.5-5.1); SGOT/AST 22 IU/L (3-35); SGPT/ALT 45 U/L (12-78); SODIUM 137 mmol/L (136-145); TOTAL PROTEIN 7.1 gm/dL (6.4-8.2)
[2018-10-13 12:00] VITALS: BP 111/64
--- NOTE | 2018-10-13 15:00 | NUR ---
PT C/O PAIN IN LLE 10/26. MEDICATED WITH NORCO PER ORDER. WILL MONITOR.
[2018-10-13] MEDS ORDERED: PROZAC20 MG PO (15:54)
[2018-10-13 16:00] VITALS: BP 113/58
--- NOTE | 2018-10-13 16:00 | NUR ---
PER PATIENT, PAIN MED HAS BEEN EFFECTIVE. NO FURTHER COMPLAITNS AT THIS TIME.
--- NOTE | 2018-10-13 19:06 | NUR ---
PT C/O GENERALIZED PAIN T/O, MOSTLY IN BLE. MEDICATED WITH NORCO PER ORDER. WILL MONITOR.
[2018-10-13 20:00] VITALS: BP 115/57
--- NOTE | 2018-10-13 21:04 | NUR ---
PRN NORCO EFFECTIVE PER PT
--- NOTE | 2018-10-13 22:20 | NUR ---
24 HR chart check completed.
[2018-10-14] VITALS: BP 104/74; BP 122/58
[2018-10-14 06:51] LABS: BASO # 0.1 10*3/uL (0.0-0.1); BASO % 0.6 % (0.0-1.0); EOS # 0.2 10*3/uL (0.0-0.4); HEMATOCRIT 28.1 % (37.0-47.0); HEMOGLOBIN 9.1 g/dl (12.0-16.0); LYMPH # 2.1 10*3/uL (1.3-4.4); LYMPH % 26.3 % (27.0-41.0); MEAN CELL VOLUME 92.7 fl (81.0-99.0); MEAN CORPUSCULAR HGB CONC 32.4 g/dl (33.0-37.0); MEAN PLATELET VOLUME 9.8 fl (9.6-12.3); MONO # 0.7 10*3/uL (0.1-1.0); MONO % 8.6 % (3.0-9.0); NEUT # 4.9 10*3/uL (2.3-7.9); NEUT % 60.3 % (47.0-73.0); NUCLEATED RED BLOOD CELL 0.2 % (0.0-0.0); PLATELET COUNT AUTOMATED 408 10*3/uL (130-400); RED BLOOD COUNT 3.03 10*6/uL (4.10-5.10); RED CELL DISTRI WIDTH 13.2 % (0-14.5); WHITE BLOOD COUNT 8.1 10*3/uL (4.8-10.8)
[2018-10-14 06:52] LABS: BUN 20 mg/dl (7-24); CHLORIDE 104 mmol/L (98-107); POTASSIUM 4.4 mmol/L (3.5-5.1); SODIUM 137 mmol/L (136-145)
--- NOTE | 2018-10-14 07:05 | NUR ---
PATIENT REQUESTED NOT TO BE AWAKENED, REPORT RECEIVED, WHITE BOARD UPDATED, PATIENT TO HAVE PICC LINE PLACED TODAY.
--- NOTE | 2018-10-14 07:36 | NUR ---
Shift chart check completed.
[2018-10-14 08:00] VITALS: BP 113/47
[2018-10-14 10:00] VITALS: BP 94/70
--- NOTE | 2018-10-14 10:42 | NUR ---
ERIKA ISIDRO [id number] Please refer to the physician's history and physical for past medical history, comorbid conditions, and allergies. Diagnosis: SEVERE SEPSIS OSTEOMYELITIS Jorge Score: 15,AT RISK WOUND DESCRIPTIONS: Wound Vac changed to left foot per md order of 125mmHg continous with low intensity one piece of white foam over bone then one piece of black foam on top. Wound was cleansed with with nss per order. Wound vac is due to be change every Mon-Wed-Fri Patient tolerated procedure well. Tayler Tolentino RN assisted in wound vac change. Wound Number: 1 Location of the wound: left plantar foot Type of wound: surgical Thickness: Full Size: 4cm X 2cm X 1.1cm Tunneling: none Undermining: none Sinus Tract: none Presence of Exudate: Serous sanguineous Amount: Moderate Color: Red Odor: None Periwound Skin Appearance: Normal Wound edges: approximated Pain (associated with wound): denied at time of assessment Surface the patient is resting on: Isoflex SKIN PREVENTION RECOMMENDATION: 1. Pressure redistribution support surface as appropriate 2. Elevate heels 3. Remove boots/TEDS every shift and reapply 4. Head of bed 30 degrees as tolerated 5. Assess nutrition and hydration 6. Manage moisture 7. Avoid the use of containment devices while in bed 8. Use absorptive products on surfaces limit layers of linens on bed 9. Turn and reposition every 1-2 hours in bed and every 1 hour in chair as tolerated 10. Weight shifts every 15 minutes while up in chair 11. Offloading with pillows or device to keep heels elevated off bed 12. Monitor skin at least every shift 13. Inspect under medical devices twice a day
--- NOTE | 2018-10-14 11:00 | NUR ---
Assault Amphibious Vehicle Officer in to see patient. Discussed short term SNF vs home health care services with a wound vac and IV antibiotics. She refuses SNF and is agreeable to home health care services. When provided with a list of agencies she chose [facility]. When medically stable she will be discharged to home with [facility] services.
[2018-10-14 12:00] VITALS: BP 93/66
[2018-10-14] MEDS ORDERED: CEFTRIAXONE2 G1 IV (13:44)
--- NOTE | 2018-10-14 14:22 | NUR ---
Completed Level of care and faxed to [facility] for approval. Waiting on results.
[2018-10-14 16:00] VITALS: BP 114/74
--- NOTE | 2018-10-14 17:45 | NUR ---
PATIENT C/O LEFT FOOT PAIN OF AN 8 MEDICATED WITH HYDROCODONE APAP ORDERED.
[2018-10-14 20:00] VITALS: BP 110/67
--- NOTE | 2018-10-14 22:00 | NUR ---
BLOOD SUGAR 183; COVERAGE GIVEN PER EMAR. PT. VOICES NO C/O AT THIS TIME. CALL LIGHT WITHIN REACH.
[2018-10-15] VITALS: BP 99/56
--- NOTE | 2018-10-15 | NUR ---
RESTING IN BED WITH EYES CLOSED. CALL LIGHT WITHIN REACH.
--- NOTE | 2018-10-15 04:00 | NUR ---
RESTING IN BED; VOICES NO C/O. CALL LIGHT WITHIN REACH.
--- NOTE | 2018-10-15 06:00 | NUR ---
BLOOD SUGAR 180; COVERAGE GIVEN BY PATIENT PER EMAR. CALL LIGHT WITHIN REACH.
[2018-10-15] MEDS ORDERED: METOPROLOL SUCC25 M2 PO ×2 (07:34→08:46)
[2018-10-15 08:00] VITALS: BP 106/54
--- NOTE | 2018-10-15 08:23 | NUR ---
Faxed prescription for home IV antibiotic of Rocephin 2 GM IV daily to [facility]. Awaiting response. Notified Shanae Ramirez patient will need to be first dosed here while in the hospital.
[2018-10-15] MEDS ORDERED: HYDROCODONE-AC1 EAC1 PO (08:48)
--- NOTE | 2018-10-15 11:10 | NUR ---
Spoke to Aurora at [facility]. They are not able to fulfill prescription. Faxed prescription to [facility]. Awaiting response.
--- NOTE | 2018-10-15 11:32 | NUR ---
PT MEDICATED WITH NORCO 1 TAB PO AT HER REQUEST FOR LEFT FOOT PAIN.
--- NOTE | 2018-10-15 11:56 | NUR ---
Spoke to Christen pimentel [facility] [place] regarding home IV antibiotics. She received referral and is awaiting insurance approval.
[2018-10-15 12:00] VITALS: BP 130/77
--- NOTE | 2018-10-15 13:12 | NUR ---
Faxed home health order to [facility]
--- NOTE | 2018-10-15 13:57 | NUR ---
Received completed [employer] wound vac form from Dr. Cabrera. Faxed completed [employer] wound vac form to [facility]. Awaiting response. Spoke to Christen at [facility] regarding home IV antibiotics. [facility] is not in contract with [facility]. Christen will fax information to [facility].
--- NOTE | 2018-10-15 14:12 | NUR ---
Shift chart check completed.
[2018-10-15 16:00] VITALS: BP 127/74
[2018-10-15 20:00] VITALS: BP 108/72
--- NOTE | 2018-10-15 20:08 | NUR ---
[place] given per order for left foot pain pt rates 10/26.
[2018-10-16] VITALS: BP 91/54
--- NOTE | 2018-10-16 03:06 | NUR ---
24 HR chart check completed.
[2018-10-16 08:00] VITALS: BP 110/72
--- NOTE | 2018-10-16 08:18 | NUR ---
Spoke to Shai at [facility]. Wound vac to be delivered this afternoon. Attempted to reach I at [phone] regarding home IV antibiotics with no success, no voicemail. Will attempt again at a later time.
--- NOTE | 2018-10-16 09:21 | NUR ---
Spoke to Satinder at [facility] regarding home IV antibiotics. Benefits have come back and patient looks like she should be good to go but will have the health care technician call me when she arrives today. Awaiting return call.
[2018-10-16 09:50] LABS: ACID FAST SPEC PROCESSING Tissue Grinding (.)
--- NOTE | 2018-10-16 10:35 | NUR ---
Spoke to Melani at [facility], regarding home IV antibiotics. Patient is covered at 100%. Start of care to start tomorrow. Medications to be delivered to patient's residence tonight. Spoke to Meenu at [facility] regarding patient discharging today to home with wound vac and IV antibiotics once a day. Meenu states start of care will be tomorrow. [facility] nurse will place the wound vac and start the IV antibiotics.
--- NOTE | 2018-10-16 10:49 | NUR ---
PT MEDICATED WITH NORCO FOR LEFT FOOT PAIN.
[2018-10-16 12:00] VITALS: BP 115/61
--- NOTE | 2018-10-16 14:21 | NUR ---
Spoke to Melani at [facility]. Notified [facility] will be administering IV antibiotics tomorrow at 2pm. She is agreeable. Medications will be delivered to patient's home tonight.
--- NOTE | 2018-10-16 15:00 | NUR ---
PT DISCHARGED AT THIS TIME WITH SPOUSE TO HOME.
--- NOTE | 2018-10-16 15:00 | NUR ---
Discharge instructions reviewed with patient/family. Patient receptive and verbalizes understanding. Follow-up care arranged. Written instructions given to patient/family. LUZ KEARNEY
--- NOTE | 2018-10-16 15:45 | NUR ---
Spoke to Danie at [facility] regarding metoprolol 37.5 mg po daily. Request has been submitted to medical assembler and once reviewed hospitalist office will be faxed the result.
== END 2018-10-16 15:00 | disposition home health service (06) | DRG 853 ==
LOC: ED 10:18 → EDHOLD 12:02 → 4E 12:02
PROVIDERS: Emergency Medicine; Family Medicine; Hospitalist; Internal Medicine; Nurse Practitioner Family; Podiatrist; ADMIT Internal Medicine
PROC: 0QBP0ZX Excision of Left Metatarsal, Open Approach, Diagnostic (ICD-10-PCS; principal; 2018-10-10)
PROC: 02HV33Z Insertion of Infusion Device into Superior Vena Cava, Percutaneous Approach (ICD-10-PCS; 2018-10-14)
DX: A41.9 Sepsis, unspecified organism (principal); N17.0 Acute kidney failure with tubular necrosis; E87.1 Hypo-osmolality and hyponatremia; L02.612 Cutaneous abscess of left foot; M86.8X7 Other osteomyelitis, ankle and foot; E87.2 Acidosis; I47.2 Ventricular tachycardia; E44.0 Moderate protein-calorie malnutrition; Z68.43 Body mass index [BMI] 50.0-59.9, adult; E11.621 Type 2 diabetes mellitus with foot ulcer; R65.20 Severe sepsis without septic shock; L97.529 Non-pressure chronic ulcer of other part of left foot with unspecified severity; E11.65 Type 2 diabetes mellitus with hyperglycemia; E11.42 Type 2 diabetes mellitus with diabetic polyneuropathy; E66.3 Overweight; I25.10 Atherosclerotic heart disease of native coronary artery without angina pectoris; K21.9 Gastro-esophageal reflux disease without esophagitis; E53.8 Deficiency of other specified B group vitamins; B95.1 Streptococcus, group B, as the cause of diseases classified elsewhere; E55.9 Vitamin D deficiency, unspecified; B96.5 Pseudomonas (aeruginosa) (mallei) (pseudomallei) as the cause of diseases classified elsewhere; I10 Essential (primary) hypertension; E11.69 Type 2 diabetes mellitus with other specified complication; E78.2 Mixed hyperlipidemia; F17.210 Nicotine dependence, cigarettes, uncomplicated; Z71.6 Tobacco abuse counseling; Z95.5 Presence of coronary angioplasty implant and graft; I25.2 Old myocardial infarction; Z86.73 Personal history of transient ischemic attack (TIA), and cerebral infarction without residual deficits; Z68.29 Body mass index [BMI] 29.0-29.9, adult; Z98.51 Tubal ligation status; Z90.49 Acquired absence of other specified parts of digestive tract; Z79.82 Long term (current) use of aspirin; Z79.899 Other long term (current) drug therapy; Z82.49 Family history of ischemic heart disease and other diseases of the circulatory system

== ENCOUNTER 2018-11-27 03:52 | Inpatient (IN) | payer OTHER ==
[~2018-11-27] VITALS: Ht 149.8 cm; Wt 68.7 kg
[2018-11-27] VITALS (10 sets, daily range): BP systolic 103–119; BP diastolic 48–64
--- NOTE | ~2018-11-27 | O ---
[place], [place] OPERATIVE NOTE NAME[id number] UNIT #: [id number] ROOM: 525 DOCTOR: JONATHAN SAPP DPM BIRTHDATE: [birth year] DOS: SURGEON: Dr. Sapp. INFORMATION TECHNOLOGY ACCOUNT MANAGER: 1. Dr. Jonah Sesay, fellow. 2. Manjeet Marmolejo, PGY-3. PREOPERATIVE DIAGNOSES: 1. Osteomyelitis, left first metatarsophalangeal joint. 2. Dislocated first metatarsophalangeal joint of the left first metatarsophalangeal joint. 3. Posterior gastrocnemius equinus. 4. EHL contracture of the left foot. PROCEDURE: 1. Incision and drainage, bone debridement first metatarsal and base of great toe. 2. EHL tenectomy. 3. Gastroc recession. 4. Reduction and relocation of the first metatarsophalangeal joint with Steinmann pin fixation. 5. Application of Integra skin graft. DICTATION ENDS HERE JONATHAN SAPP DPM CM:OPRECORD:OPERATIVE NOTE 1416 1456 JONATHAN SAPP DPM 12/02/18 1903 interface
--- NOTE | ~2018-11-27 | WRIGHTHP ---
[place], [place] PATIENT HISTORY AND PHYSICAL EXAM NAME: ERIKA ISIDRO [facility] #: [id number] UNIT #: [id number] ROOM: 525 DOCTOR: JONATHAN SAPP DPM BIRTHDATE: [birth year] DOS: The patient is seen for postop diabetic foot ulcer, osteomyelitis of her left foot. The patient was somewhat noncompliant ____. She also had the K-wire pulled out of her foot when she came to our office. Because of this, she had re-dislocation of her left first metatarsophalangeal joint causing increased pressure and causing increased deformity ____. She presented with serous drainage, no purulence, no foul odor, no acute signs of infection but chronic signs of osteomyelitis of her left first metatarsophalangeal joint. Also, dislocation of the first metatarsophalangeal joint. With this in mind, she is set for surgery at [facility] on 11/27/2018 for bone debridement, excision, wound debridement and repair and balancing of the first metatarsophalangeal joint in the left foot. With his mind, she agreed to consent, agreed to site marking, agreed with perioperative management, understanding pros, cons, risks, and benefits. Also, agreed to being more compliant. With this in mind, she signed the consent. She signed the preoperative management and agreed with the consent for left lower extremity. JONATHAN SAPP DPM CM:HISPHYS:PATIENT HISTORY AND PHYSICAL EXAMINATION 1416 1431 JONATHAN SAPP DPM 12/02/18 1902 interface
--- NOTE | ~2018-11-27 | WRIGHTHP ---
[place], [place] PATIENT HISTORY AND PHYSICAL EXAM NAME: ERIKA ISIDRO [facility] #: [id number] UNIT #: [id number] ROOM: 525 DOCTOR: JONATHAN SAPP DPM BIRTHDATE: [birth year] DOS: 11/27/2018 INDICATIONS: The patient is seen for post-reduction and incision and drainage of her first metatarsophalangeal joint ____ complication. This patient came in, she pulled her K-wire and she had a dressing off and she had drainage from the first metatarsophalangeal joint that was serous. There were no acute changes, but there was a chronic infection with sepsis of the first metatarsophalangeal joint. There was serous clear fluid. At this time, she was admitted to the hospital for incision and drainage, bone debridement, bone biopsy, repair of wound and ____ left lower extremity. With this in mind, she agreed to consent. She agreed to site marking. She agreed to perioperative management. She agreed to following through appropriately. She ____ 11/27/2018 understanding pros, cons, risks, and benefits of overcorrection, under correction, recurrence ____ except for surgery at [facility]. JONATHAN ASPP DPM CM:HISPHYS:PATIENT HISTORY AND PHYSICAL EXAMINATION 1435 1550 JONATHAN SAPP DPM 12/02/18 1915 interface
--- NOTE | ~2018-11-27 | PR ---
[place], [place] PROGRESS NOTE NAME: ERIKA ISIDRO UNIT #: [id number] ROOM: 525 DOCTOR: CHARU MILLER,JUNE BIRTHDATE: [birth year] DOS: 12/01/2018 CHIEF COMPLAINT: Left diabetic foot ulcer, possible osteomyelitis. SUBJECTIVE: The patient is being followed for left foot osteomyelitis. Cultures have grown Pseudomonas. Second culture now with pseudomonas that is intermediate to cefepime, it was changed per the attending appropriately to Zosyn earlier today. The other pseudomonas is sensitive to Zosyn as well. The patient is alert and oriented, feels well. Denies fevers, chills, nausea, vomiting or diarrhea. Has little pain in the foot. No cough or shortness of breath. She feels well and wants to go home. LABORATORY DATA: BUN 17, creatinine 1.09. Cultures as reviewed above. Pathology is still pending. PHYSICAL EXAMINATION: VITAL SIGNS: Temperature 98.4, pulse 84, respirations 20, BP 97/57. GENERAL: A 53-year-old female, in no acute distress. HEAD, EYES, EARS, NOSE AND THROAT: Normocephalic, no thrush. LUNGS: Clear to auscultation bilaterally. Respirations even and unlabored. HEART: Regular rhythm. No murmur appreciated. ABDOMEN: Soft, nondistended. EXTREMITIES: Right lower extremity is unremarkable. Left lower extremity is casted with a VAC emanating from it. Her right upper extremity PICC is now lying on the floor, it was that when I came into the room. SKIN: Warm, dry, free of rashes. ASSESSMENT: With operative left foot ulcer with possible osteomyelitis of the first metatarsal. Operative cultures growing Pseudomonas, one of which is intermediate to cefepime. She is now on Zosyn. We will await pathology report. She had a prior history from September of pseudomonas, Serratia and group B strep. PLAN: Continue Zosyn for now and await her pathology results. Again, it was a positive bone culture, which grew Pseudomonas. JUNE ANGELA BOX [place], [place] PROGRESS NOTE NAME: SANNAERIKA ESPANA UNIT #: [id number] ROOM: [facility] DOCTOR: CHARU MILLER,JUNE BIRTHDATE: [birth year] Silvia Castillo MD CM:PNBIGG 11 45 CHARU MILLER 12/01/18 174 interface
--- NOTE | ~2018-11-27 | O ---
[place], [place] OPERATIVE NOTE NAME: ERIKA ISIDRO [facility] #: [id number] UNIT #: [id number] ROOM: [facility] DOCTOR: JONATHAN SAPP DPM BIRTHDATE: [birth year] DOS: SURGEON: Jonathan Sapp DPM. ASSISTANTS: 1. Dr. Jonah Sesay (fellow). 2. Manjeet Marmolejo, PGY3. PREOPERATIVE DIAGNOSES: 1. Gastroc equinus. 2. Osteomyelitis of the first metatarsophalangeal joint. 3. Retracted extensor hallucis longus tendon ____. POSTOPERATIVE DIAGNOSES: 1. Gastroc equinus. 2. Osteomyelitis of the first metatarsophalangeal joint. 3. Retracted extensor hallucis longus tendon ____. PROCEDURES: 1. Incision and drainage, bone debridement, bone biopsy of the first metatarsophalangeal joint. 2. Gastroc resection. 3. EHL (extensor hallucis longus) tenotomy. 4. Reduction of the first metatarsophalangeal joint with Steinmann pin fixation. 5. Application of Integra graft. The patient was seen in the preoperative holding area, appropriate site marking was performed. She agreed to consent, agreed with site marking, agreed with the perioperative management. She was brought into OR, placed well-padded in the OR table where anesthesia was achieved. Once anesthesia was achieved, her left foot and leg prepped and draped in usual sterile fashion. At this time, appropriate time-out was performed, everybody in the room concurred. PROCEDURE #1: Incision and drainage, bone debridement, bone biopsy of the first metatarsal. At this time, using a 10 blade, a wide excision was made of the first metatarsophalangeal joint excising all tissues that were necrotic and tissues were excised and removed in total. ____. Next, the incision was deepened to bone. The bone was debrided, excised and resected with rongeur and curette. The bone was resected and sent for Gram stain, aerobic, anaerobic, fungal acid as well as biopsy of the first metatarsal and the base of the great toe. The first metatarsophalangeal joint ____ bone consistent with osteomyelitis of the left first metatarsophalangeal joint. PROCEDURE #2: Gastroc resection: Attention was directed to the posteromedial aspect of the left lower leg where incision was made over the gastric aponeurosis deepened in the same plane using sharp scissors, avoiding neurovascular structures, carried down through the deep tissues where the deep fascia was incised. At this time, the gastroc aponeurosis was identified. This was cut and a Juan Carlos procedure was performed with increased range of motion of [place], [place] OPERATIVE NOTE NAME: ERIKA ISIDRO UNIT #: [id number] ROOM: [facility] DOCTOR: JONATHAN SAPP DPM BIRTHDATE: [birth year] ankle joint offloading the forefoot. Deep tissue was closed using 3-0 nylon. PROCEDURE #3: EHL tenectomy: Next, there was noted to be extremely tight EHL tendon. This was dorsi flexing the great toe along the first metatarsophalangeal joint dislocation. At this time, a percutaneous incision was made at the metatarsophalangeal and was deepened in the same plane using sharp and blunt dissection avoid neurovascular structures. At this time, a 10 blade was used to completely cut the EHL tendon, allowing the toe to be reduced into neutral position of the first metatarsophalangeal joint. PROCEDURE #4: Reduction of the first metatarsophalangeal joint: At this point in time, the first metatarsophalangeal joint was reduced, held in place and under fluoroscopy guidance a 764 Steinmann pin was inserted from distal phalanx across the interphalangeal joint to the metatarsal ____ the base of first metatarsal with the toe held in neutral position and offloaded and relocated under fluoroscopy guidance. PROCEDURE #5: ____ was used, the collagen was packed into the wound deficit and a graft was inserted into the first metatarsal. The Integra graft was inserted ____. PROCEDURE #6: Negative pressure therapy. The patient has the wound VAC was applied to the first metatarsophalangeal joint. It was applied in a good position and applied in usual sterile fashion technique. The surgical wounds were dressed with Betadine-soaked Adaptic, 4 x 4s, Marino in a sterile compressive fashion. ____ OR with vital signs stable and vascular status intact. JONATHAN SAPP DPM CM:OPRECORD:OPERATIVE NOTE 1435 1735 JONATHAN SAPP DPM 12/02/186 interface
--- NOTE | ~2018-11-27 | PR ---
[place], [place] PROGRESS NOTE [id number] UNIT #: [id number] ROOM: 525 DOCTOR: SILVIA HAYES MD BIRTHDATE: [birth year] DOS: 11/30/2018 This is an addendum to the progress note done by the nurse practitioner, Gayle Bonilla. I reviewed the labs and imaging, made the necessary changes in the note. I agree with the assessment and plan. Silvia Hayes MD CM:PNTRANS 1520 0201 SILVIA HAYES MD 12/07/18 0158 interface
--- NOTE | ~2018-11-27 | CON ---
[place], [place] REPORT OF CONSULTATION [id number] UNIT #: [id number] ROOM: 525 DOCTOR: HE HAYES MD BIRTHDATE: [birth year] DOS: 11/28/2018 REASON FOR CONSULTATION: Left foot infection. CHIEF COMPLAINT: Left leg ulcer getting worse. HISTORY OF PRESENT ILLNESS: This is a 53-year-old female known to Infectious Disease service from her recent admission. She is a known diabetic, uncontrolled with diabetic neuropathy. She has chronic nonhealing ulcer on her left foot, which started after a trauma in 2007. She had wart formation, later it turned out to be getting worse and led into osteomyelitis. She was seen in September 2018 and was found to have group B strep with superficial cultures growing Pseudomonas Serratia. She was given ceftriaxone 2 grams daily for 6 weeks, which she states she completed. She has some other cultures reported on 11/06/2018 were growing Staph epidermidis and Staph auricularis. These are likely from outpatient with no followup with Infectious Disease. I do not know if it was treated or not. At this time, the patient reports that she has been picking her ulcer and it got bigger, draining blood and pus. Podiatry has performed incision and drainage yesterday. OP report is not up. ID was told to follow up for further recommendations. The patient does not know what happened with her foot. PAST MEDICAL HISTORY: Significant for diabetes with diabetic neuropathy, essential hypertension, history of stroke, hyperlipidemia, tobacco abuse. PAST SURGICAL HISTORY: Cholecystectomy, tubal ligation, I and D of the left foot. SOCIAL HISTORY: Active smoker, nonalcoholic, no illicit drug use. FAMILY HISTORY: Father had a history of DE at the age of 67 and . Mother has hypertension, hyperlipidemia. ALLERGIES: No known drug allergies. HOME MEDICATIONS: Reviewed. REVIEW OF SYSTEMS: A 12-point review of systems has been done. Pertinent negative positive included in HPI, rest are noncontributory. PHYSICAL EXAMINATION: VITAL SIGNS: Current vitals stable. GENERAL: The patient is alert, oriented x 3, not in acute distress. HEENT: Atraumatic, normocephalic. PERRLA, EOMI. RESPIRATORY: Air entry bilaterally equal. No wheeze or crackles. CARDIOVASCULAR: S1, S2 normal. No murmur, rubs or gallop. ABDOMEN: Soft, nontender, nondistended. Bowel sounds present. EXTREMITIES: Left lower extremity has a postop cast in place. LABS AND IMAGING: Reviewed. [place], [place] REPORT OF CONSULTATION NAME: ERIKA ISIDRO UNIT #: [id number] ROOM: 525 DOCTOR: HE HAYES MD BIRTHDATE: [birth year] ASSESSMENT AND PLAN: Left foot chronic nonhealing ulcer, recently treated for osteomyelitis with group B strep, completing 6 weeks of ceftriaxone now presenting with infected ulcer, status post I and D and probably a pin placed on the first digit. Details of the surgery not available as there is no OP note and only a progress note today from Podiatry. I would like to know what is growing from her culture results as well as the pathology as she has recently been treated for osteomyelitis and I am not sure if she again has an acute osteomyelitis. There is no documentation, but there is a new PICC line in her right arm. Check ESR and CRP. Based on the culture results, we will decide if she even needs antibiotics or not. Holding off any antibiotics at this time. The patient is not ready for discharge yet. Thank you for your consult. Please call for any questions. He Hayes MD CM:CONSTR:REPORT OF CONSULTATION 1735 11/29/18 0235 interface
--- NOTE | ~2018-11-27 | WRIGHTHP ---
[place], [place] PATIENT HISTORY AND PHYSICAL EXAM NAME: ERIKA ISIDRO [facility] #: [id number] UNIT #: [id number] ROOM: 525 DOCTOR: JONATHAN SAPP DPM BIRTHDATE: [birth year] DOS: 11/27/2018 LOWER EXTREMITY PHYSICAL EXAM VASCULAR: She has intact pedal pulses 2/4 DP and PT. NEUROLOGIC: She has complete loss of protective sensation secondary to diabetic peripheral neuropathy. DERMATOLOGIC: She has a wound to the plantar ____ into the first metatarsophalangeal joint causing access to the joint causing some sepsis to the first metatarsophalangeal joint. MUSCULOSKELETAL: Because of the dislocation of the first metatarsophalangeal joint, she has required EHL contracture and so she has the gastrocnemius equinus ____ increasing pressure on the ____ metatarsophalangeal joint more so. ORTHOPEDIC EXAM: Consistent with osteomyelitis of the first metatarsophalangeal joint ____ of the left foot. JONATHAN SAPP DPM CM:HISPHYS:PATIENT HISTORY AND PHYSICAL EXAMINATION 1435 1620 JONATHAN SAPP DPM 12/02/18 1909 interface
--- NOTE | ~2018-11-27 | PR ---
[place], [place] PROGRESS NOTE [facility] [id number] UNIT #: [id number] ROOM: 525 DOCTOR: SILVIA HAYES MD BIRTHDATE: [birth year] DOS: 11/30/2018 This is an addendum to the progress note done by the nurse practitioner, Gayle Bonilla. I agree with the assessment and plan, reviewed the labs and imaging, made the necessary changes in the note. Silvia Hayes MD CM:PNTRANS [id number] SILVIA HAYES MD 12/07/18 0204 interface
--- NOTE | ~2018-11-27 | PR ---
[place], [place] PROGRESS NOTE NAME: ERIKA ISIDRO [facility] #: [id number] UNIT #: [id number] ROOM: 525 DOCTOR: CHARU MILLER,JUNE BIRTHDATE: [birth year] DOS: 11/30/2018 CHIEF COMPLAINT: Possible infection chronic ulcer, left foot. SUBJECTIVE: The patient is being followed. She was brought in by Podiatry. She underwent debridement of the left foot reportedly on the . There is still no operative note and per progress note, it was an I and D, though any other details are unknown. Pathology from that is pending. Cultures are coming back preliminary with Gram-negative rods from bone of the first metatarsal, left foot. The patient has a PICC line in place as well as her left lower extremity is casted and she has got a wound VAC. She is complaining of pain in the left lower extremity. No fevers or chills. No nausea, vomiting or diarrhea. Feels well otherwise. She has had no lab work done today. Yesterday's WBC is 9.2, BUN 14, creatinine 0.74. PHYSICAL EXAMINATION: VITAL SIGNS: Temperature 98.0, pulse 84, respirations 20, BP 116/72. GENERAL: 53-year-old female, in no acute distress. HEAD, EYES, EARS, NOSE AND THROAT: Normocephalic, no thrush. LUNGS: Clear to auscultation bilaterally. Respirations even and unlabored. HEART: Regular rhythm. No murmur appreciated. ABDOMEN: Soft, nondistended. EXTREMITIES: Left lower extremity is casted to the knee. Toes warm and pink. She has PICC in place right upper extremity. Dressing dry and intact. SKIN: Warm, dry, free of rashes. ASSESSMENT: Left foot ulcer with possible osteomyelitis of first metatarsal. Operative cultures labeled bone first metatarsal have growth of Gram-negative rods. Reviewing her older cultures from September, she had Pseudomonas, Serratia and group B strep. She was previously treated it appears for the group B strep. Pathology is pending as well as the operative note is pending. PLAN: At this point, we will start cefepime 2 g IV q.12 hours. Await pathology and cultures. JUNE ANGELA BOX [place], [place] PROGRESS NOTE NAME: ERIKA ISIDRO UNIT #: [id number] ROOM: [facility] DOCTOR: CHARU MILLER BIRTHDATE: [birth year] Silvia Castillo MD CM:PNBIGG [id number] CHARU MILLER 11/30/182139 interface
--- NOTE | ~2018-11-27 | CON ---
[place], [place] REPORT OF CONSULTATION NAME: ERIKA ISIDRO [facility] #: [id number] UNIT #: [id number] ROOM: 525 DOCTOR: PHD YAYA BARAK BIRTHDATE: [birth year] DOS: 11/28/2018 HISTORY OF PRESENT ILLNESS: The patient is a 53-year-old female referred by the hospitalist with concerns for suicidal ideation. At the present time, the patient is on the 5th floor at [facility]. She was admitted postoperatively for wound care. The patient lives with her and her son who has a disability. She also has 3 other children who live outside the home. She also has 3 other adult children. She denied drug and alcohol use and reported smoking 1 pack of cigarettes per day. PAST MEDICAL HISTORY: Acute kidney failure with tubular necrosis, B12 deficiency, coronary artery disease, diabetic neuropathy, hypertension, GERD, history of cerebrovascular accident, hyperlipidemia, hyperglycemia, hypochloremia, hyponatremia, diabetes, lactic acidosis, NSTEMI, severe sepsis, vitamin D insufficiency. MEDICATIONS: Prozac, vitamin D, Brilinta, aspirin, Lipitor, Xarelto, Glucotrol, Neurontin, Ditropan, Ultram, Humalog, Zofran, Tylenol, [place] 5/325, Versed. The patient was sitting comfortably. She was awake, alert and oriented to person, place and time. She cried out in pain intermittently and was given pain medication during the assessment. Mood was anxious. Affect was restricted in range. She firmly denied suicidal ideation, plan, and intent. She denied homicidal ideation. She states that she would never kill herself because of her son who is dependent on her and her for care. She reports struggling emotionally since her mother's in June and one of her daughters being in nursing home. She states that recovering from surgery is difficult without the support of her daughter. She reports a history of mental illness, but could not specify what she had been diagnosed with. Speech was hyperverbal. Expressive and receptive language appeared within normal limits conversationally. Thought process was circumstantial. She denies hallucinations and delusions currently. She reports a history of seeing a mouse crawling in her trailer that was not there and also seeing someone walking by her window, who was not there. She states that she feels much better emotionally and that she "got it all out last night" by screaming and yelling. She reports that she is worried that her "son will get that taken off her" even though there is no evidence to support this. She sees Dr. Baker, who prescribes her psychiatric medications. She is satisfied with her medications and is not looking to make any adjustments. She also is not looking for any type of inpatient psychiatric treatment. She sought counseling in the past, but does not want to pursue this currently. DIAGNOSES: Generalized anxiety disorder, unspecified depressive disorder. PLAN: The patient does not appear to be in imminent risk to herself or others at this time. She would benefit from following up with counseling and to continue to follow up with Dr. Baker for her psychiatric medications once discharged. She does not appear to require inpatient psychiatric treatment at this time. Thank you very much for this consult. [place], [place] REPORT OF CONSULTATION NAME: KAUSHIK ISIDROMARCO Rob UNIT #: [id number] ROOM: [facility] DOCTOR: YAYA, PHD BARAK BIRTHDATE: [birth year] Ketty Huerta, PhD CM:CONSTR:REPORT OF CONSULTATION 1641 11/29/18 0148 interface
--- NOTE | ~2018-11-27 | WRIGHTHP ---
[place], [place] PATIENT HISTORY AND PHYSICAL EXAM NAME: ERIKA ISIDRO [facility] #: [id number] UNIT #: [id number] ROOM: 525 DOCTOR: JONATHAN SAPP DPM BIRTHDATE: [birth year] DOS: 11/27/2018 LOWER EXTREMITY PHYSICAL EXAM VASCULAR: She has intact pedal pulses 2/4 DP and PT bilaterally. Good cap refill time. NEUROLOGICAL: She has loss of protective sensation secondary to diabetic peripheral neuropathy. DERMATOLOGICAL: She has an open wound on the plantar aspect of the first metatarsophalangeal joint. It travels on the bone into the joint of the first metatarsophalangeal joint. There is serous drainage. No purulent drainage, no active infection, more of a chronic infection with a septic joint. MUSCULOSKELETAL: She has a tight posterior muscle group. She has dislocated first metatarsophalangeal joint and resulting with a very strong contracture of the EHL tendon of the left first metatarsal joint. ORTHOPEDIC EXAM: Consistent with osteomyelitis and dislocated first metatarsophalangeal joint, left. JONATHAN SAPP DPM CM:HISPHYS:PATIENT HISTORY AND PHYSICAL EXAMINATION [id number] JONATHAN SAPP DPM 12/02/18 1925 interface
[~2018-11-27 03:52] MED LIST changes: +BRILINTA90 M1 PO; +CEFTRIAXONE2 G1 IV; +CIPRO500 MG/5 M PO; +HYDROCODONE-AC1 EAC1 PO; +PROZAC20 MG PO; +STEGLATRO15 MG PO; +TRAMADOL HCL50 MG PO; +VITAMIN D32000 UNIT PO; +XARELTO10 MG PO
--- NOTE | 2018-11-27 13:44 | NUR ---
PATIENT ARRIVED TO FLOOR VIA BED FROM SURGERY, ESCORTED BY OR STAFF. PATIENT ALERT, TALKING, PLEASANT, COOPERATIVE. ASSESSMENT COMPLETED WITHOUT INCIDENT, PATIENT DENIES ANY PAIN OR DISTRESS AT THIS TIME. SCD IN USE TO RIGHT LEG. WOUND VAC AND CAST NOTED TO LEFT LEG, INTACT AND FUNCTIONING AT PRESSURE 200,LOW, CONTINOUS. ORIENTED TO ROOM, CALL LIGHT, FLOOR. CALL LIGHT WITHIN REACH. WILL CONTINUE TO MONITOR.
--- NOTE | 2018-11-27 19:47 | NUR ---
NOTIFIED DR. ARCOS AT THIS TIME THAT PATIENT ONLY HAS ULTRAM ORDERED AT THIS TIME AND IS SCREAMING IN PAIN RIGHT NOW. HE STATED HE WOULD PUT SOMETHING IN FOR HER
--- NOTE | 2018-11-27 20:05 | NUR ---
PRN NORCO GIVEN FOR PT COMPLAINTS OF PAIN IN THE LEFT FOOT AND LEG. 12/26. PATIENT SCREAMING. CALL LIGHT WITHIN REACH, WILL MONITOR
--- NOTE | 2018-11-27 22:30 | NUR ---
PRN NORCO SOMEWHAT EFFECTIVE PER PT.
[2018-11-28] VITALS: BP 121/66
--- NOTE | 2018-11-28 00:05 | NUR ---
PRN NORCO GIVEN FOR PT COMPLAINTS OF PAIN RATING IT 09/25. CALL LIGHT WITHIN REACH, WILL MONITOR
--- NOTE | 2018-11-28 01:13 | NUR ---
PATIENT STATES THAT SHE HAS ABSOLUTELY NO PAIN AT THIS TIME
--- NOTE | 2018-11-28 02:05 | NUR ---
ERIKA ISIDRO [id number] Please refer to the physician's history and physical for past medical history, comorbid conditions, and allergies. Diagnosis: DIABETIC FOOT ULCER OSTEOMYELITIS Jorge Score: 17,AT RISK WOUND DESCRIPTIONS: Wound Vac intact to left lower extremity. Wound vac setting is set to 200mmHg continous. Intensity is set at low. Patient complaining of pain at time of assessment patient stated the last time that she had a pin in her leg she stated she had the same pain. Reposition at this time. Patient unable to receive any pain medication at this time. Patient had surgery with Dr. Navarro on 11/27/18. Surface the patient is resting on: Isoflex SKIN PREVENTION RECOMMENDATION: 1. Pressure redistribution support surface as appropriate 2. Elevate heels 3. Remove boots/TEDS every shift and reapply 4. Head of bed 30 degrees as tolerated 5. Assess nutrition and hydration 6. Manage moisture 7. Avoid the use of containment devices while in bed 8. Use absorptive products on surfaces limit layers of linens on bed 9. Turn and reposition every 1-2 hours in bed and every 1 hour in chair as tolerated 10. Weight shifts every 15 minutes while up in chair 11. Offloading with pillows or device to keep heels elevated off bed 12. Monitor skin at least every shift 13. Inspect under medical devices twice a day WOUND TREATMENT RECOMMENDATIONS: Consult podiatry since patient had surgery with podiatry yesterday to maintain wound vac and dressing orders post op.
--- NOTE | 2018-11-28 03:52 | NUR ---
PATIENT SCREAMING. STATED THAT THE PAIN IS OFF AND ON INSTANTLY. ITLL COME IN WAVES AND LAST FOR A COUPLE SECONDS AND THEN ITS GONE. SHE STATED THAT SHE KNOWS THAT IT'S THE PIN IN HER FOOT AND SHE'S GONNA ASK THE DOCTOR TO TAKE IT OUT AND SHE WILL BE FINE. PRN NORCO GIVEN AT THIS TIME. PATIEN STATED THAT THEY AREN'T WORKING. THIS NURSE STATED THAT SHE COULD CALL FOR SOMETHING ELSE AND SEE IF SHE CAN GET SOMETHING STRONGER. SHE STATED THAT SHE DIDN'T WANT ANYTHING STRONGER. PATIENT CALM AND THEN WILL RANDOMLY SCREAM IN PAIN WHILE TALKING. PATIENT STATED THAT SHE WANTS HER NEUROTIN. CALLED DR. ARCOS HE STATED WE COULD GIVE IT EARLY. PATIENT STATED THAT THIS WILL WORK FOR HER BECAUSE SHE KNOWS THAT IT'S JUST NERVE PAIN. CALL LIGHT WITHIN REACH, WILL MONITOR
--- NOTE | 2018-11-28 04:45 | NUR ---
PT RESTING IN BED. NO DISTRESS NOTED. CALL LIGHT WITHIN REACH
--- NOTE | 2018-11-28 05:32 | NUR ---
ORDER RECEIVED FOR PODIATRY CONSULT
[2018-11-28 06:45] LABS: BASO % 0.3 % (0.0-1.0); EOS # 0.3 10*3/uL (0.0-0.4); HEMOGLOBIN 7.4 g/dl (12.0-16.0); LYMPH # 1.6 10*3/uL (1.3-4.4); LYMPH % 17.5 % (27.0-41.0); MEAN CELL VOLUME 89.8 fl (81.0-99.0); MEAN CORPUSCULAR HGB 28.9 pg (27.0-31.0); MEAN CORPUSCULAR HGB CONC 32.2 g/dl (33.0-37.0); MEAN PLATELET VOLUME 9.1 fl (9.6-12.3); MONO # 1.1 10*3/uL (0.1-1.0); NEUT # 6.2 10*3/uL (2.3-7.9); NEUT % 66.9 % (47.0-73.0); PLATELET COUNT AUTOMATED 316 10*3/uL (130-400); RED BLOOD COUNT 2.56 10*6/uL (4.10-5.10); RED CELL DISTRI WIDTH 13.3 % (0-14.5); WHITE BLOOD COUNT 9.3 10*3/uL (4.8-10.8)
--- NOTE | 2018-11-28 06:51 | NUR ---
SPOKE WITH DR. ARCOS. NOTIFIED HIM THAT PATIENT HAS A PICC LINE THAT SHE WAS GETTING HOME ANTIBIOTICS THROUGH AND THIS NURSE ASKED FOR AN ORDER TO USE IT. HE STATED THAT THIS WAS OK
[2018-11-28 08:00] VITALS: BP 118/76
--- NOTE | 2018-11-28 08:05 | NUR ---
PT MEDICATED WITH NORCO FOR C/O LEFT LE PAIN. PT RATES PAIN 10/26 WILL MONITOR
[2018-11-28 08:36] LABS: ALBUMIN 2.9 gm/dl (3.1-4.5); ALKALINE PHOSPHATASE 83 U/L (45-117); BUN 14 mg/dl (7-24); CHLORIDE 100 mmol/L (98-107); CREATININE 0.76 mg/dL (0.55-1.02); PHOSPHOROUS 4.3 mg/dL (2.5-4.9); POTASSIUM 4.1 mmol/L (3.5-5.1); SGOT/AST 16 IU/L (3-35); SGPT/ALT 15 U/L (12-78); SODIUM 133 mmol/L (136-145); TOTAL PROTEIN 6.4 gm/dL (6.4-8.2)
--- NOTE | 2018-11-28 10:30 | NUR ---
[facility]
--- NOTE | 2018-11-28 10:30 | NUR ---
Manager Neonatal in to talk to patient. Patient states lives at home with . There are no steps in the home. There is a wheelchair ramp. Physician: Dr. Baker at [facility] Pharmacy: Galina M[facility]quez Home health services: wants [facility] Patient's level of ADLs: MINIMAL ASSIST Patient has working utilities: yes DME: none Follow-up physician's appointment after d/c: will be made by hospitalist nurse director upon discharge Does patient want to access PORTAL?: no Discharge plan discussed with patient. She lives at home with her . She is independent in her ADLs and is non-weight bearing per her on her LLE. Discussed short term SNF and she refuses. Discussed home health care services and she is agreeable. When provided with a list of agencies she chose [facility]. Her will transport on discharge. BELINDA SANDERS
--- NOTE | 2018-11-28 11:00 | NUR ---
Spoke to Dr. Montiel and Dr. Molina regarding completion of wound vac paperwork for home. Dr. Montiel stopped by CM office and picked up [facility] wound vac form.
--- NOTE | 2018-11-28 11:14 | NUR ---
PHYSICAL THERAPY Physical therapy evaluation complete, 5E. Full evaluation/details to follow. Moderate complexity PT evaluation per chart review and evaluation (19197). PT to progress with transfers, gait, and safety per POC. Recommend home with home health PT/Nursing at discharge. Thank you. Denise Millard,PT,DPT
--- NOTE | 2018-11-28 11:14 | NUR ---
Occupational Therapy evaluation completed on 5 with full eval to follow. Precautions include fall risk,NWB LLE,high anxiety, impulsive, IV UE, moderate complexity level 90048 via chart review, testing and evaluation. REcommend OT per pOC and home with family and 24 hr supervision and assist. REcommend w/c with elevating/removeable leg rests and wh walker. Thank you. Ted Jordan OTR/L
--- NOTE | 2018-11-28 12:59 | NUR ---
Notified hospitalist nurse director of need for a front wheeled walker and wheelchair with elevating removable leg rest for home.
--- NOTE | 2018-11-28 13:47 | NUR ---
PT MEDICATED WITH NORCO FOR C/O LEFT LE PAIN WILL MONITOR
--- NOTE | 2018-11-28 14:00 | NUR ---
[facility]
--- NOTE | 2018-11-28 14:05 | NUR ---
Notified Dr. Montiel of need for prescription for wheelchair with elevated removable leg rest and documentation in the progress note. Awaiting response.
--- NOTE | 2018-11-28 15:29 | NUR ---
Faxed [employer] wound vac form to [facility] for completion.
[2018-11-28 16:00] VITALS: BP 122/56
[2018-11-28 16:05] LABS: ACID FAST SPEC PROCESSING Tissue Grinding (.)
[2018-11-28 16:05] LABS: ACID FAST SPEC PROCESSING Tissue Grinding (.)
--- NOTE | 2018-11-28 16:11 | NUR ---
PT REQUESTED AND GIVEN TYLENOL FOR C/O LE PAIN./ PT RATES PAIN 10/26 WILL MONITOR
[2018-11-28 20:00] VITALS: BP 130/66
--- NOTE | 2018-11-28 20:42 | NUR ---
PRN NORCO GIVEN FOR PT COMPLAINTS OF PAIN IN THE LEFT FOOT RATINGIT 10/10. CALL LIGHT WITHIN REACH, WILL MONITOR
--- NOTE | 2018-11-28 22:00 | NUR ---
PATIENT STATES MEDICATION NOT REALLY EFFECTIVE, WILL WAIT FOR ULTRAM AT MIDNIGHT
[2018-11-29] VITALS: BP 108/60; BP 99/57
--- NOTE | 2018-11-29 | NUR ---
MEDICATION APPEARS EFFECTIVE,PT SLEEPING
--- NOTE | 2018-11-29 01:56 | NUR ---
PRN NORCO GIVEN FOR PT COMPLAINTS OF PAIN IN THE LEFT FOOT RATING IT 10/10. CALL LIGHT WITHIN REACH, WILL MONITOR
--- NOTE | 2018-11-29 03:37 | NUR ---
PRN MEDICATION APPEARS EFFECTIVE, PT SLEEPING
--- NOTE | 2018-11-29 04:35 | NUR ---
24 HR chart check completed.
[2018-11-29 07:05] LABS: BASO % 0.4 % (0.0-1.0); EOS # 0.4 10*3/uL (0.0-0.4); EOS % 4.8 % (1.0-4.0); HEMATOCRIT 23.5 % (37.0-47.0); HEMOGLOBIN 7.6 g/dl (12.0-16.0); LYMPH # 2.1 10*3/uL (1.3-4.4); MEAN CELL VOLUME 89.4 fl (81.0-99.0); MEAN CORPUSCULAR HGB 28.9 pg (27.0-31.0); MEAN CORPUSCULAR HGB CONC 32.3 g/dl (33.0-37.0); MEAN PLATELET VOLUME 9.1 fl (9.6-12.3); MONO # 1.1 10*3/uL (0.1-1.0); MONO % 11.6 % (3.0-9.0); NEUT # 5.5 10*3/uL (2.3-7.9); NEUT % 59.7 % (47.0-73.0); PLATELET COUNT AUTOMATED 351 10*3/uL (130-400); RED BLOOD COUNT 2.63 10*6/uL (4.10-5.10); RED CELL DISTRI WIDTH 13.2 % (0-14.5); WHITE BLOOD COUNT 9.2 10*3/uL (4.8-10.8)
--- NOTE | 2018-11-29 07:05 | NUR ---
Faxed again the [employer] wound vac form to [facility] for completion.
[2018-11-29 07:12] LABS: BUN 14 mg/dl (7-24); CHLORIDE 99 mmol/L (98-107); CREATININE 0.74 mg/dL (0.55-1.02); POTASSIUM 4.2 mmol/L (3.5-5.1); SODIUM 131 mmol/L (136-145)
[2018-11-29 08:00] VITALS: BP 117/68
--- NOTE | 2018-11-29 08:18 | NUR ---
PT RESTING IN BED. NO DISTRESS NOTED. WILL MONITOR
--- NOTE | 2018-11-29 09:02 | NUR ---
PHYSICAL THERAPY Patient seen this am 1;1 for therapy visit and was supine in bed upon therapist arrvial. Patient voices 5/10 L LE pain and presents with L LE plaster cast below knee to toes. Patient remains NWB on L LE while transfering supine to sit EOB with SBA and sit to stand CGA. Patient performed SPT to [facility] with use of wh walker standing support, CGA, requiring v/c for upright posture and safe pivot technique. Patient demonstrated initial retro grade posture and stated she was afraid of falling. Patient educated on improved standing posture with inceased pressure thru hands on walker. Patient also able to ambulate 10'x 1, wh walker, MIN A, demonstrating 3 pt "bunny" hop pamela and needed v/c to slow gait velocity to improve safety. Patient fatigues quickly and returned to supine in bed, remaining with call light, tray table, telephone and bed alarm for safety. Will continue per POC as tolerated, total treatment time 18 minutes. Cheko Miller, RETAIL SHIFT LEADER
--- NOTE | 2018-11-29 10:00 | NUR ---
Spoke to Dr. Montiel regarding wound vac paperwork needing completed. The paperwork is partially completed with no wound measurements noted. Dr. Montiel states he has not seen the wound and the measurements are not known to him as the wound vac was placed in surgery. Awaiting completed [employer] wound vac form from [facility].
--- NOTE | 2018-11-29 10:15 | NUR ---
PT MEDICATED WITH NORCO FOR C/O LE PAIN . PT RATES PAIN 8/ WILL MONITOR
--- NOTE | 2018-11-29 12:00 | NUR ---
PT STATES THAT [facility] HELPED WILL MONITOR
--- NOTE | 2018-11-29 12:05 | NUR ---
Spoke to Terrance at [facility] regarding [employer] wound vac form. She did receive the form and is awaiting the physician to complete. She will fax once the form has been completed.
--- NOTE | 2018-11-29 13:16 | NUR ---
PHYSICAL THERAPY CO-SIGN I approve of the Physical Therapy notes written above. BELINDA GARAY PT,DPT
--- NOTE | 2018-11-29 15:33 | NUR ---
PT REQUESTED AND GIVEN NORCO FOR C/O LEFT LE PAIN. PT RATES PAIN 8./10 WILL MONITOR
[2018-11-29 16:00] VITALS: BP 105/59
--- NOTE | 2018-11-29 19:56 | NUR ---
MICHAEL GIVEN PER ORDER FOR LEFT FOOT PAIN RATED "10" SEE MAR.
--- NOTE | 2018-11-29 20:56 | NUR ---
NORCO EFFECTIVE FOR REDUCING PAIN PER PT. BUT IT STILL HURTS LIKE SPASMS.
[2018-11-30] VITALS: BP 104/60
--- NOTE | 2018-11-30 03:15 | NUR ---
PATIENT MEDICATED WITH NORCO FOR COMPLAINTS OF PAIN TO THE LEFT LOWER EXTREMITY. RN WILL MONITOR FOR RELIEF OF SYMPTOMS
--- NOTE | 2018-11-30 07:50 | NUR ---
Medicated with norco per prn order for complaints of pain to left foot. wound vac intact per orders with cast noted.
[2018-11-30 08:00] VITALS: BP 98/61
--- NOTE | 2018-11-30 08:30 | NUR ---
States that norco helped to relieve pain.
[2018-11-30 16:00] VITALS: BP 116/72
[2018-12-01] VITALS: BP 117/67
--- NOTE | 2018-12-01 02:20 | NUR ---
PATIENT FELL ONTO FLOOR TRYING TO TRANSFER FROM BED TO BEDSIDE COMMODE WITHOUT ASSISTANCE. UNWITNESSED FALL. PATIENT STATES SHE DID NOT HIT HER HEAD. NO OBVIOUS INJURIES NOTED UPON ASSESSMENT. VITALS OBTAINED AND STABLE. DR KELLOGG NOTIFIED OF INCIDENT. PROCESS TECH NOTIFIED OF INCIDENT. PATIENT RETURNED TO HER BED, CLEANED UP. BED CHANGE PROVIDED. BED ALARM ARMED. BED PLACED IN LOW, LOCKED POSITION. NEAR NURSING STATION. CALL LIGHT AND ALL BELONGINGS PLACED WITHIN REACH.
[2018-12-01 02:28] VITALS: BP 106/58
[2018-12-01 07:06] LABS: BUN 17 mg/dl (7-24); CHLORIDE 96 mmol/L (98-107); CREATININE 1.09 mg/dL (0.55-1.02); SODIUM 130 mmol/L (136-145)
[2018-12-01 08:00] VITALS: BP 97/57
--- NOTE | 2018-12-01 12:56 | NUR ---
PAGED ID TO GIVE WOUND CULTURE RESULTS REQUESTED BY DR GAINES.
[2018-12-01 16:00] VITALS: BP 93/45
--- NOTE | 2018-12-01 18:27 | NUR ---
WHILE IN PATEINTS ROOM SHE STATED SHE NEED TO USE THE BEDSIDE COMMODE. THE BEDSIDE COMMODE WAS MOVED CLOSE TO THE PATIENT'S CHAIR AND A WALKER TO WAS BROUGHT TO PATIENT. PT STATES "I NEED A WHEELCHAIR." I INFORMED HER THAT A WHEELCHAIR WOULD STILL REQUIRE HER TO AMBULATE TO THE [facility]. PT WAS ASSISTED TO BEDSIDE COMMODE. THE CURTAIN WAS PULLED FRO PRIVACY AND I STEPPED TO THE OTHER SIDE OF THE CURTAIN. THE PT STATED SHE WAS DONE. I RE-ENTERED THE ROOM AND MADE SURE THE PT HAD TOILET PAPER WITHIN REACH. I WAS APPROACHING THE PATIENT TO HELP HER AMBULATE BACK TO THE CHAIR, SHE STOOD UP QUICKLY AND HER DRESSING ON HER FOOT SLIPPED. SHE FELL TO HER KNEE. THE PT WAS YELLING "I TOLD YOU, I NEED A WHEELCHAIR" ASHLEY GUSMAN WAS ASKED TO HELP ASSIST. WE GOT THE PT BACK UP WITH MINIMAL EFFECT AND PLACED HER IN THE CHAIR. THE RIGHT KNEE WAS EXAMINED. NO INJURY WAS OBATINED. THE SKIN STILL INTACT. DR. SEXTON WAS NOTIFIED ALONG WITH THE NURSING ELECTRICAL AND RADIO MECHANIC. I INSTRUCTED THE PATIENT TO NOT AMBULATE ON HER OWN, TO WAIT FOR ASSISTANCE. FALL PREVENTION EDUCATION PROVIDED.
--- NOTE | 2018-12-01 19:28 | NUR ---
PT COMPLAINS OF NAUSEA AT THIS TIME. PRN PHENERGAN ADMINISTERED.
[2018-12-02] VITALS: BP 100/52
[2018-12-02 07:17] LABS: BASO # 0.1 10*3/uL (0.0-0.1); BASO % 0.6 % (0.0-1.0); EOS # 0.4 10*3/uL (0.0-0.4); EOS % 3.4 % (1.0-4.0); HEMATOCRIT 23.2 % (37.0-47.0); HEMOGLOBIN 7.5 g/dl (12.0-16.0); LYMPH # 1.3 10*3/uL (1.3-4.4); LYMPH % 12.7 % (27.0-41.0); MEAN CELL VOLUME 88.5 fl (81.0-99.0); MEAN CORPUSCULAR HGB 28.6 pg (27.0-31.0); MEAN CORPUSCULAR HGB CONC 32.3 g/dl (33.0-37.0); MONO # 1.1 10*3/uL (0.1-1.0); MONO % 10.5 % (3.0-9.0); NEUT # 7.5 10*3/uL (2.3-7.9); PLATELET COUNT AUTOMATED 388 10*3/uL (130-400); RED BLOOD COUNT 2.62 10*6/uL (4.10-5.10); RED CELL DISTRI WIDTH 13.2 % (0-14.5); WHITE BLOOD COUNT 10.5 10*3/uL (4.8-10.8)
[2018-12-02 07:42] LABS: BUN 16 mg/dl (7-24); CHLORIDE 100 mmol/L (98-107); CREATININE 0.92 mg/dL (0.55-1.02); POTASSIUM 4.2 mmol/L (3.5-5.1); SODIUM 133 mmol/L (136-145)
[2018-12-02 08:00] VITALS: BP 106/62
--- NOTE | 2018-12-02 10:30 | NUR ---
Livestock Farm Manager in to see patient. Discussed short term SNF and she refuses. Discussed IV antibiotics at home and she states she gives them to herself. Informed the antibiotics would be TID and she remains agreeable to giving her own IV antibiotics at home. Discussed the possibility of cost associated with the home IV antibiotics and she is concerned as she would not be able to afford them. Informed clinical information for home IV antibiotics will be faxed to [employer] to check cost and she was agreeable. Discharge plan undecided at this time.
--- NOTE | 2018-12-02 11:30 | NUR ---
PATIENT COMPLAINS OF 7/10 PAIN TO LEFT LOWER EXTREMITY. MEDICATED PER ORDER. VOICES NO OTHER CONCERNS AT THIS TIME. CALL LIGHT WITHIN REACH, RESTING IN BED.
--- NOTE | 2018-12-02 11:42 | NUR ---
Faxed Merrem cost check to [employer]. Awaiting response.
--- NOTE | 2018-12-02 11:58 | NUR ---
Message received from Justin at [facility] regarding [facility] Community Plan doesn't provide coverage for the wound vac or supplies. She can apply for [employer]. [facility] needs and H&P, demographics, surgical report, goal of therapy, date/facility of placement, and if there is tunneling involved. Spoke to Dr. Grey and Dr. Montiel regarding if wound vac therapy will be needed on discharge. They will check. Spoke to HIM regarding no op or post op report. Awaiting reports to be dictated. Unable to send clinical for wound vac without op report. Notified hospitalist nurse director.
--- NOTE | 2018-12-02 11:59 | NUR ---
PATIENT TAKEN OFF FLOOR FOR PICC LINE PLACEMENT.
[2018-12-02 12:00] VITALS: BP 104/73
--- NOTE | 2018-12-02 12:56 | NUR ---
Isaac returned from PICC line placement. Voices no concerns at this time. Resting in bed. Call light within reach.
--- NOTE | 2018-12-02 14:57 | NUR ---
Spoke to Petra from [facility]. They did not receive fax for home IV antibiotics. Refaxing. Received fax confirmation.
--- NOTE | 2018-12-02 15:19 | NUR ---
Faxed [facility] form to [facility]. Awaiting response.
--- NOTE | 2018-12-02 15:34 | NUR ---
Spoke to Cathy at [facility]. Discussed john care form and at this time the john care form is not needed. There are no notes regarding any call being made to [facility] stating the patient's insurance would not be taken. Will fax op report once received. Spoke to Terrance at [facility]. She will refax [facility] wound vac form to physician to have completed. Informed Terrance there were certain sections that were not completed.
--- NOTE | 2018-12-02 15:40 | NUR ---
Faxed Merrem 1 GM IV TID to [facility] for cost check. Awaiting response.
[2018-12-02 16:00] VITALS: BP 115/51
--- NOTE | 2018-12-02 16:18 | NUR ---
PATIENT COMPLAINS OF LOWER LEFT LEG PAIN 10/26. MEDICATED PER ORDER. WILL CONTINUE TO MONITOR FOR RELIEF. VOICES NO OTHER CONCERNS AT THIS TIME. RESTING IN BED. CALL LIGHT WITHIN REACH.
--- NOTE | 2018-12-02 16:27 | NUR ---
MULTIPLE ATTEMPTS MADE TO RESOLVE LEAK TO WOUND VAC. PT HAD PULLED AT DRESSING AND AT TUBING. EDUCATION PROVIDED TO PT REGARDING NOT TAMPERING WITH THE WOUND VAC. NOTIFIED DR DONNELLY WHO SAID HE WOULD SEND SOMEONE TO SEE PT.
--- NOTE | 2018-12-02 16:30 | NUR ---
DR YUSUF ROUNDED AND SEEN PT. WOUND VAC NOW RUNNING PROPRERLY @ 200 MMHG CONTINUOUS SUCTION. NO LEAKS AT THIS TIME. ISSUE SEEMS RESOLVED.
--- NOTE | 2018-12-02 16:52 | NUR ---
NOTIFIED DR TAMEZ OF PT C/O OF "BURNING MOUTH". ORDER RECIEVED. NOTIFIED HER THAT PT PICKED AT NEW PICC LINE PLACED EARLIER UNTIL IT BLED.APPLIED ABD AND LOOSE WRAP TO HOLD IN PLACE AND ASKED PT TO NOT TOUCH THE PICC LINE.
--- NOTE | 2018-12-02 17:10 | NUR ---
PATIENT COMPLAINS OF LEG PAIN 08/26. MEDICATED PER ORDER. WILL CONTINUE TO MONITOR FOR RELIEF. RESTING IN BED, CALL LIGHT WITHIN REACH.
[2018-12-02 20:00] VITALS: BP 94/57
[2018-12-03] VITALS: BP 92/56
--- NOTE | 2018-12-03 07:30 | NUR ---
AVIONICS SYSTEMS REPAIRER faxed referral to [facility]. -CHYNA Bauer
--- NOTE | 2018-12-03 07:46 | NUR ---
Faxed updated clinical to [facility]. Awaiting response.
--- NOTE | 2018-12-03 07:59 | NUR ---
[facility] does not take patient's insurance. Clinical were faxed to [facility] by [facility].
[2018-12-03 08:00] VITALS: BP 110/50
--- NOTE | 2018-12-03 09:15 | NUR ---
PHYSICAL THERAPY Patient seen this am 1:1 for therapy visit and was resting supine in bed following breakfast upon therapist arrival. Patient presented with continuous IV treatment and wound vac to L LE with huge plaster cast. Patient reports 6/10 L LE pain and is NWB on L LE, transfering supine to sit EOB with CGA x 1. Patient performed sit to stand with use of wh walker, completing SPT to [facility], CGA, then able to ambulate around bed 15'x 1, wh walker, Min A, demonstrating bouts of impulsive behaviour. Patient needed v/c for improve walker safety / navigation and returned to supine in bed. Patient remained in bed with call light, tray table, cell phone and bed alarm for safety. Will continue per POC as tolerated, total treatment time 16 minutes. Cheko Miller, MOVER
--- NOTE | 2018-12-03 09:32 | NUR ---
OT NOTE PATIENT SEEN FOR 20 MINUTE CO-TREAT THIS DAY AND IDENTIFIED BY NAME AND . PATIENT SUPINE IN BED WITH HOB ELEVATED UPON ARRIVAL. PATIENT ABLE TO COMPLETE BED MOBILITY WITH SBA. PATIENT STATED PAIN IN LE'S. PATIENT REQUIRED CGA FOR STS FROM EOB>FWW. STAND PIVOT TRANSFER WITH CGA FROM EOB>BEDSIDE COMMODE. TOILETING COMPLETED AT SBA. TOILET HYGIENE AT SBA. STAND PIVOT TRANSFER FROM BEDSIDE COMMODE>EOB WITH CGA. PATIENT SIT TO SUPINE WITH SBA. PATIENT ENDED SESSION SUPINE IN BED WITH HOB ELEVATED, WOUND VAC, AND IV IN PLACE. BAUTISTA ARANA
--- NOTE | 2018-12-03 11:47 | NUR ---
Returned call from Vernon at [facility], voicemail left, regarding wound vac. Awaiting return call. [phone] ext [phone]
[2018-12-03 12:00] VITALS: BP 112/52
--- NOTE | 2018-12-03 12:32 | NUR ---
Spoke to Dave at [facility]. Wound vac to be delivered about 4:30 om today to the hospital. Spoke to Annika at [facility] regarding home IV antibiotics. Awaiting return call from Melani at [facility] regarding cost of home IV antibiotics. Hospitalist nurse director notified.
--- NOTE | 2018-12-03 12:40 | NUR ---
Dr. Montiel notified of wound vac approval and delivery. Notified Dr. Vázquez of the need for antibiotic script for home Merrem. Awaiting return call.
[2018-12-03] MEDS ORDERED: MERREM IV1 GM IV (13:42)
--- NOTE | 2018-12-03 13:55 | NUR ---
Spoke to patient regarding wound vac to be delivered about 4:30 pm today and still working on her wheelchair and home IV antibiotics. She verbalized an understanding.
--- NOTE | 2018-12-03 14:06 | NUR ---
Spoke to Renetta at [facility] regarding home IV antibiotic coverage as Linda is on another call at this time. 100% covered but because of Merrem being first dosed in the home an anaphylactic kit or epi-pen will need to be provided also. Hospitalist nurse director notified. Spoke to Meenu at [facility] regarding first dosing in the home. She will speak to her director and get back to .
--- NOTE | 2018-12-03 14:11 | NUR ---
Faxed wheelchair prescription to [facility]. Awaiting return call.
--- NOTE | 2018-12-03 14:16 | NUR ---
Spoke to Meenu at [facility]. They will be able to take the patient as long as patient has not had a previous reaction to Merrem and an anaphylactic kit is available.
[2018-12-03] MEDS ORDERED: EPIPEN 2-P0.3 MG/0.3 IM (14:37)
--- NOTE | 2018-12-03 14:44 | NUR ---
Faxed Merrem and Epi-pen prescriptions to [facility] and [facility].
--- NOTE | 2018-12-03 14:51 | NUR ---
[facility]. Faxed to [facility] and [facility].
--- NOTE | 2018-12-03 15:02 | NUR ---
Notified patient of wound vac being delivered about 4:30pm, IV antibiotics are set up for home, and OV her home health company is set up. Explained CM was still working on a wheelchair. She states "I don't care whether I have the wheelchair or not I am leaving here at 5pm." Nurse and nursing playground supervisor notified.
--- NOTE | 2018-12-03 15:09 | NUR ---
Spoke to Tomy at [facility] regarding walker. He is currently processing it but needs their detailed written order form completed. Faxed to hospitalist nurse director.
--- NOTE | 2018-12-03 15:37 | NUR ---
Faxed [facility]'s detailed written order to [facility]
--- NOTE | 2018-12-03 15:39 | NUR ---
Spoke to Renetta at [facility] regarding start of care for tomorrow morning. They will deliver home IV antibiotics and Epi-pen tonight. Informed [facility] is ok with first dosing in the home with an Epi-pen available per Meenu at [facility].
--- NOTE | 2018-12-03 16:06 | NUR ---
OCCUPATIONAL THERAPY CO-SIGN I approve of the Occupational Therapy notes written above. SAMAN GRANADO OTR/Liane
--- NOTE | 2018-12-03 17:14 | NUR ---
[facility] Discharge instructions reviewed with patient/family. Patient receptive and verbalizes understanding. Follow-up care arranged. Written instructions given to patient/family. DEO CHENG
--- NOTE | 2018-12-03 17:26 | NUR ---
PHYSICAL THERAPY CO-SIGN I approve of the Physical Therapy notes written above. BELINDA GARAY PT,DPT
--- NOTE | 2018-12-06 14:42 | NUR ---
Spoke to Tomy at [facility] regarding wheelchair. Awaiting insurance approval and he has been in touch with patient.
== END 2018-12-03 17:14 | disposition home health service (06) | DRG 623 ==
LOC: SDC 03:52 → 5E 13:36
PROVIDERS: Family Medicine; Internal Medicine; Podiatrist; Registered Nurse; ADMIT Internal Medicine
PROC: 0QBR0ZX Excision of Left Toe Phalanx, Open Approach, Diagnostic (ICD-10-PCS; principal; 2018-11-27)
PROC: 0HRNXJZ Replacement of Left Foot Skin with Synthetic Substitute, External Approach (ICD-10-PCS; 2018-11-27)
PROC: 0QBP0ZZ Excision of Left Metatarsal, Open Approach (ICD-10-PCS; 2018-11-27)
PROC: 0KBT0ZZ Excision of Left Lower Leg Muscle, Open Approach (ICD-10-PCS; 2018-11-27)
PROC: 0LBW0ZZ Excision of Left Foot Tendon, Open Approach (ICD-10-PCS; 2018-11-27)
PROC: 0QSP34Z Reposition Left Metatarsal with Internal Fixation Device, Percutaneous Approach (ICD-10-PCS; 2018-11-27)
PROC: 02HV33Z Insertion of Infusion Device into Superior Vena Cava, Percutaneous Approach (ICD-10-PCS; 2018-12-02)
DX: E11.621 Type 2 diabetes mellitus with foot ulcer (principal); M86.172 Other acute osteomyelitis, left ankle and foot; R45.851 Suicidal ideations; E11.69 Type 2 diabetes mellitus with other specified complication; L97.529 Non-pressure chronic ulcer of other part of left foot with unspecified severity; E11.49 Type 2 diabetes mellitus with other diabetic neurological complication; I10 Essential (primary) hypertension; K21.9 Gastro-esophageal reflux disease without esophagitis; I25.10 Atherosclerotic heart disease of native coronary artery without angina pectoris; F17.210 Nicotine dependence, cigarettes, uncomplicated; E11.42 Type 2 diabetes mellitus with diabetic polyneuropathy; F41.1 Generalized anxiety disorder; F32.9 Major depressive disorder, single episode, unspecified; E78.5 Hyperlipidemia, unspecified; Z90.49 Acquired absence of other specified parts of digestive tract; Z79.4 Long term (current) use of insulin; Z98.51 Tubal ligation status; Z86.73 Personal history of transient ischemic attack (TIA), and cerebral infarction without residual deficits; I25.2 Old myocardial infarction

== ENCOUNTER → 2019-05-01 | Outpatient (CLI) | payer OTHER ==
[~2019-05-01] MED LIST changes: +DOXYCYCLINE100 M3 PO; +EPIPEN 2-P0.3 MG/0.3 IM; +MERREM IV1 GM IV
[2019-05-01 10:31] LABS: BASO # 0.1 10*3/uL (0.0-0.1); BASO % 0.8 % (0.0-1.0); EOS # 0.2 10*3/uL (0.0-0.4); EOS % 2.5 % (1.0-4.0); HEMOGLOBIN 12.3 g/dl (12.0-16.0); LYMPH # 2.9 10*3/uL (1.3-4.4); LYMPH % 32.2 % (27.0-41.0); MEAN CELL VOLUME 84.4 fl (81.0-99.0); MEAN CORPUSCULAR HGB 26.6 pg (27.0-31.0); MEAN CORPUSCULAR HGB CONC 31.5 g/dl (33.0-37.0); MEAN PLATELET VOLUME 9.6 fl (9.6-12.3); MONO # 0.6 10*3/uL (0.1-1.0); MONO % 6.5 % (3.0-9.0); NEUT # 5.1 10*3/uL (2.3-7.9); NEUT % 57.8 % (47.0-73.0); PLATELET COUNT AUTOMATED 434 10*3/uL (130-400); RED BLOOD COUNT 4.62 10*6/uL (4.10-5.10); RED CELL DISTRI WIDTH 15.4 % (0-14.5); RETICULOCYTE % 1.36 % (0.50-2.50); WHITE BLOOD COUNT 8.9 10*3/uL (4.8-10.8)
[2019-05-01 10:47] LABS: BILIRUBIN NEGATIVE (NEGATIVE); BLOOD NEGATIVE (NEGATIVE); CLARITY CLEAR (CLEAR); COLOR YELLOW (YELLOW); GLUCOSE 2+ (NEGATIVE); KETONE NEGATIVE (NEGATIVE); NITRITE NEGATIVE (NEGATIVE); SPECIFIC GRAVITY 1.015 (1.005-1.030); UROBILINOGEN 0.2 E.U./dl (0.2-1.0)
[2019-05-01 10:48] LABS: LEUKO ESTERASE NEGATIVE (NEGATIVE)
[2019-05-01 10:55] LABS: RBC 0-2 rbc/hpf (0-2); WBC 0-2 wbc/hpf (0-5)
[2019-05-01 10:59] LABS: ALBUMIN 4.2 gm/dl (3.1-4.5); CREATININE 1.46 mg/dL (0.55-1.02); POTASSIUM 4.3 mmol/L (3.5-5.1)
[2019-05-02 10:04] LABS: CREATININE,URINE 20.5 mg/dL (Not Estab.); MICRO ALBUMIN/CRE RATIO <15 (0-29)
== END ==
LOC: LAB 09:34 → RAD 09:34
PROVIDERS: Family Medicine
DX: Z01.818 Encounter for other preprocedural examination (principal); I10 Essential (primary) hypertension; E11.621 Type 2 diabetes mellitus with foot ulcer; D50.9 Iron deficiency anemia, unspecified

== ENCOUNTER → 2019-05-08 | Outpatient (CLI) | payer OTHER ==
[2019-05-08 13:34] LABS: ALBUMIN 3.9 gm/dl (3.1-4.5); CREATININE 1.39 mg/dL (0.55-1.02); PHOSPHOROUS 3.6 mg/dL (2.5-4.9); POTASSIUM 4.9 mmol/L (3.5-5.1)
== END | disposition home or self-care (01) ==
LOC: LAB 12:59
PROVIDERS: Family Medicine
DX: N17.9 Acute kidney failure, unspecified (principal)

== ENCOUNTER → 2019-05-14 | Day surgery (SDC) | payer OTHER ==
[~2019-05-14] VITALS: Ht 149.8 cm; Wt 59.4 kg
[2019-05-14 08:00] VITALS: BP 156/71
[2019-05-14 08:48] LABS: BUN 27 mg/dl (7-24); CHLORIDE 104 mmol/L (98-107); CREATININE 1.11 mg/dL (0.55-1.02); POTASSIUM 4.9 mmol/L (3.5-5.1); SODIUM 135 mmol/L (136-145)
[2019-05-14 12:06] VITALS: BP 106/45
[2019-05-14 12:20] VITALS: BP 110/52
[2019-05-14 12:35] VITALS: BP 104/49
[2019-05-14 12:50] VITALS: BP 106/56
[2019-05-14 13:05] VITALS: BP 105/55
[2019-05-15 15:09] LABS: ACID FAST SPEC PROCESSING Tissue Grinding (.)
[2019-06-24 11:02] LABS: ACID FAST CULTURE Negative (.)
== END | disposition home or self-care (01) ==
LOC: SDC 05-08 13:15
PROVIDERS: Family Medicine; Podiatrist
DX: M19.072 Primary osteoarthritis, left ankle and foot (principal); M86.8X7 Other osteomyelitis, ankle and foot; M20.5X2 Other deformities of toe(s) (acquired), left foot; M24.575 Contracture, left foot; E11.621 Type 2 diabetes mellitus with foot ulcer; I10 Essential (primary) hypertension; E78.2 Mixed hyperlipidemia; D50.9 Iron deficiency anemia, unspecified; F41.9 Anxiety disorder, unspecified; K21.9 Gastro-esophageal reflux disease without esophagitis; I70.0 Atherosclerosis of aorta; L85.3 Xerosis cutis; Z98.890 Other specified postprocedural states; Z79.899 Other long term (current) drug therapy

== ENCOUNTER 2019-08-12 13:14 | Emergency (ER) | payer OTHER ==
[~2019-08-12] VITALS: Ht 149.8 cm; Wt 59.9 kg
[2019-08-12 13:41] LABS: BASO # 0.1 10*3/uL (0.0-0.1); BASO % 0.7 % (0.0-1.0); EOS # 0.2 10*3/uL (0.0-0.4); EOS % 2.6 % (1.0-4.0); LYMPH # 2.7 10*3/uL (1.3-4.4); MEAN CELL VOLUME 86.2 fl (81.0-99.0); MEAN CORPUSCULAR HGB 28.7 pg (27.0-31.0); MEAN CORPUSCULAR HGB CONC 33.3 g/dl (33.0-37.0); MEAN PLATELET VOLUME 9.5 fl (9.6-12.3); MONO # 0.7 10*3/uL (0.1-1.0); MONO % 7.9 % (3.0-9.0); NEUT # 4.7 10*3/uL (2.3-7.9); NEUT % 56.2 % (47.0-73.0); PLATELET COUNT AUTOMATED 353 10*3/uL (130-400); RED BLOOD COUNT 3.83 10*6/uL (4.10-5.10); RED CELL DISTRI WIDTH 15.2 % (0-14.5); WHITE BLOOD COUNT 8.4 10*3/uL (4.8-10.8)
[2019-08-12 13:51] LABS: ACT PARTIAL THROMBO TIME 22.8 SECONDS (20.0-32.1); INTERNATIONAL NORM RATIO 0.9 (2.0-3.5)
[2019-08-12 13:58] LABS: ALBUMIN 3.8 gm/dl (3.1-4.5); BUN 22 mg/dl (7-24); CHLORIDE 107 mmol/L (98-107); CREATININE 1.12 mg/dL (0.55-1.02); POTASSIUM 4.1 mmol/L (3.5-5.1); SGOT/AST 14 IU/L (3-35); SGPT/ALT 29 U/L (12-78); SODIUM 136 mmol/L (136-145)
[2019-08-12 14:02] LABS: ALKALINE PHOSPHATASE 127 U/L (45-117); TOTAL PROTEIN 7.8 gm/dL (6.4-8.2); TROPONIN I < 0.015 ng/ml (<0.045)
[2019-08-12 16:44] VITALS: BP 102/65
== END 2019-08-12 18:06 | disposition home or self-care (01) ==
LOC: ED 13:14
PROVIDERS: Emergency Medicine
DX: R07.9 Chest pain, unspecified (principal); F17.210 Nicotine dependence, cigarettes, uncomplicated; Z79.899 Other long term (current) drug therapy; Z79.82 Long term (current) use of aspirin

== ENCOUNTER → 2019-09-25 | Outpatient (CLI) | payer OTHER ==
[~2019-09-25] MED LIST changes: +AMOXICILLIN500 M3 PO; +CETIRIZINE10 MG PO; +FLONASE ALLERG9.9 ML NAS
== END | disposition home or self-care (01) ==
LOC: COVID19 00:07
DX: Z01.818 Encounter for other preprocedural examination (principal); Z11.59 Encounter for screening for other viral diseases

== ENCOUNTER 2019-09-28 11:56 | Emergency (ER) | payer OTHER ==
[~2019-09-28] VITALS: Ht 149.8 cm; Wt 60.3 kg
[~2019-09-28 11:56] MED LIST changes: -AMOXICILLIN500 M3 PO; -CETIRIZINE10 MG PO; -FLONASE ALLERG9.9 ML NAS
[2019-09-28 12:01] VITALS: BP 108/39
[2019-09-28] MEDS ORDERED: FLONASE ALLERG9.9 ML NAS (12:32)
[2019-09-28] MEDS ORDERED: AMOXICILLIN500 M3 PO (12:32)
[2019-09-28] MEDS ORDERED: CETIRIZINE10 MG PO (12:32)
== END 2019-09-28 12:37 | disposition home or self-care (01) ==
LOC: ED 11:56
DX: J06.9 Acute upper respiratory infection, unspecified (principal); I10 Essential (primary) hypertension; I25.2 Old myocardial infarction; K21.9 Gastro-esophageal reflux disease without esophagitis; E78.00 Pure hypercholesterolemia, unspecified; E11.42 Type 2 diabetes mellitus with diabetic polyneuropathy; F17.210 Nicotine dependence, cigarettes, uncomplicated; Z79.899 Other long term (current) drug therapy; Z79.82 Long term (current) use of aspirin

== ENCOUNTER → 2019-10-01 | Day surgery (SDC) | payer OTHER ==
[~2019-10-01] VITALS: Ht 149.8 cm; Wt 60.3 kg
[~2019-10-01] MED LIST changes: +AMOXICILLIN500 M3 PO; +CETIRIZINE10 MG PO; +FLONASE ALLERG9.9 ML NAS
[2019-10-01 09:30] VITALS: BP 136/46
[2019-10-01 10:20] VITALS: BP 109/54
[2019-10-01 10:35] VITALS: BP 119/57
[2019-10-01 10:50] VITALS: BP 112/68
== END | disposition home or self-care (01) ==
LOC: SDC 09-26 08:00
DX: T84.84XA Pain due to internal orthopedic prosthetic devices, implants and grafts, initial encounter (principal); I10 Essential (primary) hypertension; E11.9 Type 2 diabetes mellitus without complications; K21.9 Gastro-esophageal reflux disease without esophagitis; F41.9 Anxiety disorder, unspecified; F32.9 Major depressive disorder, single episode, unspecified; I25.2 Old myocardial infarction; Z87.891 Personal history of nicotine dependence; Z98.890 Other specified postprocedural states; Z79.899 Other long term (current) drug therapy; Y83.8 Other surgical procedures as the cause of abnormal reaction of the patient, or of later complication, without mention of misadventure at the time of the procedure; Y92.89 Other specified places as the place of occurrence of the external cause

== ENCOUNTER → 2019-12-11 | Outpatient (CLI) | payer OTHER | END | disposition home or self-care (01) | LOC: MAMMO 09:56 | PROVIDERS: ATTEND Family Medicine | DX: Z12.31 Encounter for screening mammogram for malignant neoplasm of breast (principal) ==

== ENCOUNTER → 2019-12-15 | Outpatient (CLI) | payer OTHER | END | disposition home or self-care (01) | LOC: MRI 10:00 | PROVIDERS: ATTEND Podiatrist | DX: M79.672 Pain in left foot (principal); Z98.890 Other specified postprocedural states ==

== ENCOUNTER → 2020-01-01 | Outpatient (CLI) | payer OTHER | END | disposition home or self-care (01) | LOC: D 14:06 | PROVIDERS: ATTEND Family Medicine | DX: E11.621 Type 2 diabetes mellitus with foot ulcer (principal) ==

== ENCOUNTER → 2020-02-27 | Outpatient (CLI) | payer OTHER ==
--- NOTE | 2020-02-27 09:56 | NUR ---
INFORMED SIGNED CONSENT OBTAINED FOR LEXISCAN STRESS TEST SWITCHED BY DR DUDLEY. RESTING EKG 67 WITH PVC BP 122/60. LUNGS DIMINISHED PULSE OX 94% ON ROOM AIR. PT COMPLETED ONE MINUTE OF A LEXISCAN PROTOCOL WITH PT RECEIVING LEXISCAN 0.4MG IV OVER 10 SECONDS. PT HAD AN ODD FEELING AND HEADACHE WITH INJECTION, THAT RESOLVED. LAST RECOVERY HR OF 84 BP 112/60. PT IN STABLE CONDITION, AWAITING NUCLEAR IMAGES.
== END | disposition home or self-care (01) ==
LOC: CARD 00:03
PROVIDERS: ATTEND Internal Medicine Cardiovascular Disease
DX: Z01.818 Encounter for other preprocedural examination (principal); R07.89 Other chest pain

== ENCOUNTER → 2020-03-02 | Outpatient (CLI) | payer OTHER | END | disposition home or self-care (01) | LOC: COVID19 09:38 | PROVIDERS: ATTEND Family Medicine | DX: Z20.828 Contact with and (suspected) exposure to other viral communicable diseases (principal) ==

== ENCOUNTER → 2020-04-23 | Outpatient (CLI) | payer OTHER ==
[~2020-04-23] MED LIST changes: +PREGABALIN25 MG PO; +TRULICITY1.5 MG/0.5 SC; +ULTRAM50 MG PO
== END | disposition home or self-care (01) ==
LOC: COVID19 09:36
PROVIDERS: ATTEND Chiropractor Orthopedic
DX: Z01.812 Encounter for preprocedural laboratory examination (principal); Z20.822 Contact with and (suspected) exposure to COVID-19

== ENCOUNTER → 2020-04-28 | Day surgery (SDC) | payer OTHER ==
[2020-04-26 13:35] VITALS: BP 108/72
[2020-04-26 14:38] LABS: BASO # 0.1 10*3/uL (0.0-0.1); BASO % 0.6 % (0.0-1.0); EOS # 0.2 10*3/uL (0.0-0.4); EOS % 1.9 % (1.0-4.0); HEMATOCRIT 39.6 % (37.0-47.0); LYMPH # 3.1 10*3/uL (1.3-4.4); LYMPH % 30.2 % (27.0-41.0); MEAN CELL VOLUME 88.6 fl (81.0-99.0); MEAN CORPUSCULAR HGB 28.9 pg (27.0-31.0); MEAN CORPUSCULAR HGB CONC 32.6 g/dl (33.0-37.0); MEAN PLATELET VOLUME 9.2 fl (9.6-12.3); MONO # 0.8 10*3/uL (0.1-1.0); MONO % 7.9 % (3.0-9.0); NEUT # 6.1 10*3/uL (2.3-7.9); NEUT % 58.9 % (47.0-73.0); PLATELET COUNT AUTOMATED 378 10*3/uL (130-400); RED BLOOD COUNT 4.47 10*6/uL (4.10-5.10); RED CELL DISTRI WIDTH 13.4 % (0-14.5); WHITE BLOOD COUNT 10.4 10*3/uL (4.8-10.8)
[2020-04-26 15:00] LABS: POTASSIUM 4.3 mmol/L (3.5-5.1)
[~2020-04-28] VITALS: Ht 149.8 cm; Wt 62.8 kg
[2020-04-28 07:01] VITALS: BP 121/71
[2020-04-28 08:58] VITALS: BP 93/43
[2020-04-28 09:05] VITALS: BP 100/67
[2020-04-28 09:20] VITALS: BP 101/60
== END ==
LOC: SDC 04-26 13:15
PROVIDERS: ATTEND Podiatrist
DX: T82.847A Pain due to cardiac prosthetic devices, implants and grafts, initial encounter (principal); M20.5X2 Other deformities of toe(s) (acquired), left foot; M20.42 Other hammer toe(s) (acquired), left foot; M19.072 Primary osteoarthritis, left ankle and foot; I25.10 Atherosclerotic heart disease of native coronary artery without angina pectoris; I25.2 Old myocardial infarction; I12.9 Hypertensive chronic kidney disease with stage 1 through stage 4 chronic kidney disease, or unspecified chronic kidney disease; E11.22 Type 2 diabetes mellitus with diabetic chronic kidney disease; N18.9 Chronic kidney disease, unspecified; F41.9 Anxiety disorder, unspecified; Z87.891 Personal history of nicotine dependence; E78.00 Pure hypercholesterolemia, unspecified; E11.40 Type 2 diabetes mellitus with diabetic neuropathy, unspecified; Y83.8 Other surgical procedures as the cause of abnormal reaction of the patient, or of later complication, without mention of misadventure at the time of the procedure

== ENCOUNTER 2020-11-03 22:36 | Inpatient (IN) | payer OTHER ==
[~2020-11-03] VITALS: Ht 180.3 cm; Wt 56.4 kg
[~2020-11-03 22:36] MED LIST changes: -LIPITOR40 MG PO; +LIPITOR80 MG PO
[2020-11-03 22:49] VITALS: BP 122/79
[2020-11-03 23:43] LABS: BASO # 0.1 10*3/uL (0.0-0.1); BASO % 0.4 % (0.0-1.0); EOS # 0.1 10*3/uL (0.0-0.4); EOS % 0.8 % (1.0-4.0); HEMATOCRIT 33.9 % (37.0-47.0); LYMPH # 1.9 10*3/uL (1.3-4.4); MEAN CELL VOLUME 86.3 fl (81.0-99.0); MEAN CORPUSCULAR HGB 28.2 pg (27.0-31.0); MEAN CORPUSCULAR HGB CONC 32.7 g/dl (33.0-37.0); MONO # 1.3 10*3/uL (0.1-1.0); MONO % 10.3 % (3.0-9.0); NEUT # 9.5 10*3/uL (2.3-7.9); NEUT % 73.1 % (47.0-73.0); PLATELET COUNT AUTOMATED 369 10*3/uL (130-400); RED BLOOD COUNT 3.93 10*6/uL (4.10-5.10); RED CELL DISTRI WIDTH 13.3 % (0-14.5)
[2020-11-04] VITALS (8 sets, daily range): BP systolic 87–143; BP diastolic 51–72
[2020-11-04] LABS: ALBUMIN 3.8 gm/dl (3.1-4.5); ALKALINE PHOSPHATASE 93 U/L (45-117); BUN 12 mg/dl (7-24); CHLORIDE 101 mmol/L (98-107); CREATININE 1.07 mg/dL (0.55-1.02); POTASSIUM 3.5 mmol/L (3.5-5.1); SGOT/AST 18 IU/L (3-35); SGPT/ALT 28 U/L (12-78); SODIUM 134 mmol/L (136-145); TOTAL PROTEIN 8.1 gm/dL (6.4-8.2)
[2020-11-04 04:38] LABS: BASO % 0.4 % (0.0-1.0); EOS # 0.2 10*3/uL (0.0-0.4); EOS % 1.4 % (1.0-4.0); HEMATOCRIT 32.3 % (37.0-47.0); LYMPH # 2.2 10*3/uL (1.3-4.4); LYMPH % 20.4 % (27.0-41.0); MEAN CELL VOLUME 87.1 fl (81.0-99.0); MEAN CORPUSCULAR HGB 28.3 pg (27.0-31.0); MEAN CORPUSCULAR HGB CONC 32.5 g/dl (33.0-37.0); MEAN PLATELET VOLUME 9.2 fl (9.6-12.3); MONO # 1.2 10*3/uL (0.1-1.0); MONO % 11.4 % (3.0-9.0); NEUT % 65.7 % (47.0-73.0); PLATELET COUNT AUTOMATED 344 10*3/uL (130-400); RED BLOOD COUNT 3.71 10*6/uL (4.10-5.10); RED CELL DISTRI WIDTH 13.5 % (0-14.5); WHITE BLOOD COUNT 10.7 10*3/uL (4.8-10.8)
[2020-11-04 04:57] LABS: ALBUMIN 3.4 gm/dl (3.1-4.5); ALKALINE PHOSPHATASE 84 U/L (45-117); BUN 12 mg/dl (7-24); CHLORIDE 106 mmol/L (98-107); CREATININE 0.94 mg/dL (0.55-1.02); POTASSIUM 4.1 mmol/L (3.5-5.1); SGOT/AST 17 IU/L (3-35); SGPT/ALT 25 U/L (12-78); SODIUM 137 mmol/L (136-145); TOTAL PROTEIN 7.4 gm/dL (6.4-8.2)
[2020-11-04] MEDS ORDERED: METFORMIN HYD1000 MG PO (18:32)
[2020-11-04] MEDS ORDERED: TYLENOL EXTRA500 MG PO (18:33)
[2020-11-04] MEDS ORDERED: HEARTBURN RELIE20 MG PO (18:39)
[2020-11-05] VITALS: BP 105/66
[2020-11-05 06:43] LABS: BASO % 0.5 % (0.0-1.0); EOS # 0.2 10*3/uL (0.0-0.4); EOS % 2.3 % (1.0-4.0); HEMATOCRIT 32.5 % (37.0-47.0); LYMPH # 1.5 10*3/uL (1.3-4.4); MEAN CELL VOLUME 87.8 fl (81.0-99.0); MEAN CORPUSCULAR HGB 28.4 pg (27.0-31.0); MEAN CORPUSCULAR HGB CONC 32.3 g/dl (33.0-37.0); MEAN PLATELET VOLUME 9.4 fl (9.6-12.3); MONO # 0.8 10*3/uL (0.1-1.0); MONO % 10.6 % (3.0-9.0); NEUT # 5.2 10*3/uL (2.3-7.9); NEUT % 67.2 % (47.0-73.0); PLATELET COUNT AUTOMATED 319 10*3/uL (130-400); RED CELL DISTRI WIDTH 13.5 % (0-14.5); WHITE BLOOD COUNT 7.8 10*3/uL (4.8-10.8)
[2020-11-05 07:03] LABS: BUN 12 mg/dl (7-24); CHLORIDE 106 mmol/L (98-107); CREATININE 0.74 mg/dL (0.55-1.02); POTASSIUM 3.8 mmol/L (3.5-5.1); SODIUM 137 mmol/L (136-145)
[2020-11-05 08:00] VITALS: BP 133/85
[2020-11-05 20:00] VITALS: BP 98/63
[2020-11-06] VITALS: BP 87/48
[2020-11-06 06:13] LABS: BASO % 0.5 % (0.0-1.0); EOS # 0.2 10*3/uL (0.0-0.4); HEMATOCRIT 33.1 % (37.0-47.0); LYMPH # 2.1 10*3/uL (1.3-4.4); LYMPH % 25.8 % (27.0-41.0); MEAN CORPUSCULAR HGB 28.2 pg (27.0-31.0); MEAN CORPUSCULAR HGB CONC 31.7 g/dl (33.0-37.0); MEAN PLATELET VOLUME 9.5 fl (9.6-12.3); MONO # 0.8 10*3/uL (0.1-1.0); MONO % 9.7 % (3.0-9.0); NEUT # 4.9 10*3/uL (2.3-7.9); NEUT % 60.5 % (47.0-73.0); PLATELET COUNT AUTOMATED 369 10*3/uL (130-400); RED BLOOD COUNT 3.72 10*6/uL (4.10-5.10); RED CELL DISTRI WIDTH 13.7 % (0-14.5); WHITE BLOOD COUNT 8.1 10*3/uL (4.8-10.8)
[2020-11-06 06:41] LABS: BUN 16 mg/dl (7-24); CHLORIDE 105 mmol/L (98-107); CREATININE 0.78 mg/dL (0.55-1.02); POTASSIUM 4.1 mmol/L (3.5-5.1); SODIUM 137 mmol/L (136-145)
[2020-11-06 08:00] VITALS: BP 101/61
[2020-11-06 12:00] VITALS: BP 108/67
[2020-11-06 16:00] VITALS: BP 115/59
[2020-11-06 20:00] VITALS: BP 123/66
[2020-11-07] VITALS: BP 128/57
[2020-11-07 06:35] LABS: BASO # 0.1 10*3/uL (0.0-0.1); BASO % 0.6 % (0.0-1.0); EOS # 0.3 10*3/uL (0.0-0.4); EOS % 3.8 % (1.0-4.0); HEMATOCRIT 31.8 % (37.0-47.0); LYMPH % 26.5 % (27.0-41.0); MEAN CELL VOLUME 88.1 fl (81.0-99.0); MEAN CORPUSCULAR HGB 28.3 pg (27.0-31.0); MEAN CORPUSCULAR HGB CONC 32.1 g/dl (33.0-37.0); MEAN PLATELET VOLUME 9.4 fl (9.6-12.3); MONO # 0.8 10*3/uL (0.1-1.0); MONO % 9.9 % (3.0-9.0); NEUT # 4.5 10*3/uL (2.3-7.9); NEUT % 58.2 % (47.0-73.0); PLATELET COUNT AUTOMATED 368 10*3/uL (130-400); RED BLOOD COUNT 3.61 10*6/uL (4.10-5.10); RED CELL DISTRI WIDTH 13.7 % (0-14.5); WHITE BLOOD COUNT 7.7 10*3/uL (4.8-10.8)
[2020-11-07 06:46] LABS: ALBUMIN 3.1 gm/dl (3.1-4.5); BUN 17 mg/dl (7-24); CHLORIDE 107 mmol/L (98-107); POTASSIUM 4.4 mmol/L (3.5-5.1); SGOT/AST 13 IU/L (3-35); SGPT/ALT 21 U/L (12-78); SODIUM 138 mmol/L (136-145)
[2020-11-07 06:47] LABS: ALKALINE PHOSPHATASE 95 U/L (45-117); TOTAL PROTEIN 7.4 gm/dL (6.4-8.2)
[2020-11-07 08:00] VITALS: BP 114/56
[2020-11-07 12:00] VITALS: BP 132/84
[2020-11-07 16:00] VITALS: BP 110/65
[2020-11-07 20:00] VITALS: BP 115/58
[2020-11-08] VITALS: BP 117/64
[2020-11-08 08:00] VITALS: BP 126/79
[2020-11-08] MEDS ORDERED: FLAGYL500 MG PO (11:08)
[2020-11-08] MEDS ORDERED: CEFEPIME HYDROCH2 GM IV (11:11)
[2020-11-08 12:00] VITALS: BP 134/66
[2020-11-08 16:00] VITALS: BP 107/98
[2020-11-08 20:00] VITALS: BP 106/60
[2020-11-09] VITALS: BP 100/65
[2020-11-09 08:00] VITALS: BP 109/56
[2020-11-09 12:00] VITALS: BP 116/64
[2020-12-08] MEDS ORDERED: TRAMADOL HCL50 MG PO (08:18)
== END 2020-11-09 14:07 | disposition home health service (06) | DRG 344 ==
LOC: ED 22:36 → EDHOLD 11-04 00:47 → 4E 11-04 00:47
PROVIDERS: Internal Medicine; Registered Nurse; ADMIT Family Medicine; ATTEND Family Medicine
PROC: 0HDNXZZ Extraction of Left Foot Skin, External Approach (ICD-10-PCS; 2020-11-04)
PROC: 02H633Z Insertion of Infusion Device into Right Atrium, Percutaneous Approach (ICD-10-PCS; principal; 2020-11-08)
DX: E11.69 Type 2 diabetes mellitus with other specified complication (principal); L03.116 Cellulitis of left lower limb; E87.1 Hypo-osmolality and hyponatremia; I12.9 Hypertensive chronic kidney disease with stage 1 through stage 4 chronic kidney disease, or unspecified chronic kidney disease; E11.22 Type 2 diabetes mellitus with diabetic chronic kidney disease; D64.9 Anemia, unspecified; E78.5 Hyperlipidemia, unspecified; E11.65 Type 2 diabetes mellitus with hyperglycemia; N18.31 Chronic kidney disease, stage 3a; E44.0 Moderate protein-calorie malnutrition; E11.42 Type 2 diabetes mellitus with diabetic polyneuropathy; F17.210 Nicotine dependence, cigarettes, uncomplicated; L89.899 Pressure ulcer of other site, unspecified stage; M00.9 Pyogenic arthritis, unspecified; M86.172 Other acute osteomyelitis, left ankle and foot; B35.1 Tinea unguium; K21.9 Gastro-esophageal reflux disease without esophagitis; E53.8 Deficiency of other specified B group vitamins; E55.9 Vitamin D deficiency, unspecified; I08.3 Combined rheumatic disorders of mitral, aortic and tricuspid valves; I25.10 Atherosclerotic heart disease of native coronary artery without angina pectoris; M19.91 Primary osteoarthritis, unspecified site; B96.5 Pseudomonas (aeruginosa) (mallei) (pseudomallei) as the cause of diseases classified elsewhere; Z68.1 Body mass index [BMI] 19.9 or less, adult; Z86.73 Personal history of transient ischemic attack (TIA), and cerebral infarction without residual deficits; Z90.49 Acquired absence of other specified parts of digestive tract; Z98.51 Tubal ligation status; Z82.49 Family history of ischemic heart disease and other diseases of the circulatory system; Z83.438 Family history of other disorder of lipoprotein metabolism and other lipidemia; I25.2 Old myocardial infarction; Z79.899 Other long term (current) drug therapy; Z79.82 Long term (current) use of aspirin; Z79.01 Long term (current) use of anticoagulants; Z95.5 Presence of coronary angioplasty implant and graft

== ENCOUNTER → 2020-11-16 | Outpatient (CLI) | payer OTHER ==
[~2020-11-16] MED LIST changes: +CEFEPIME HYDROCH2 GM IV; +FLAGYL500 MG PO; +HEARTBURN RELIE20 MG PO; +METFORMIN HYD1000 MG PO; +TYLENOL EXTRA500 MG PO
== END | disposition home or self-care (01) ==
LOC: RESCLI 06:36
PROVIDERS: ATTEND Emergency Medicine
DX: E11.65 Type 2 diabetes mellitus with hyperglycemia (principal); K21.9 Gastro-esophageal reflux disease without esophagitis; M86.272 Subacute osteomyelitis, left ankle and foot; M00.872 Arthritis due to other bacteria, left ankle and foot; R78.81 Bacteremia; T82.898A Other specified complication of vascular prosthetic devices, implants and grafts, initial encounter; I10 Essential (primary) hypertension; E78.00 Pure hypercholesterolemia, unspecified; F41.9 Anxiety disorder, unspecified; E55.9 Vitamin D deficiency, unspecified; Z90.49 Acquired absence of other specified parts of digestive tract; Z98.890 Other specified postprocedural states; Z79.82 Long term (current) use of aspirin; Z79.899 Other long term (current) drug therapy; Z79.84 Long term (current) use of oral hypoglycemic drugs

== ENCOUNTER → 2020-11-17 | Outpatient (CLI) | payer OTHER ==
[2020-11-17 12:04] LABS: BASO # 0.1 10*3/uL (0.0-0.1); BASO % 0.8 % (0.0-1.0); EOS # 0.2 10*3/uL (0.0-0.4); EOS % 1.9 % (1.0-4.0); HEMATOCRIT 35.5 % (37.0-47.0); LYMPH # 2.2 10*3/uL (1.3-4.4); LYMPH % 24.8 % (27.0-41.0); MEAN CELL VOLUME 90.8 fl (81.0-99.0); MEAN CORPUSCULAR HGB 28.4 pg (27.0-31.0); MEAN CORPUSCULAR HGB CONC 31.3 g/dl (33.0-37.0); MEAN PLATELET VOLUME 9.7 fl (9.6-12.3); MONO # 0.7 10*3/uL (0.1-1.0); MONO % 8.4 % (3.0-9.0); NEUT # 5.6 10*3/uL (2.3-7.9); NEUT % 63.5 % (47.0-73.0); PLATELET COUNT AUTOMATED 405 10*3/uL (130-400); RED BLOOD COUNT 3.91 10*6/uL (4.10-5.10); WHITE BLOOD COUNT 8.8 10*3/uL (4.8-10.8)
[2020-11-17 12:35] LABS: ALBUMIN 3.6 gm/dl (3.1-4.5); BUN 20 mg/dl (7-24); CHLORIDE 100 mmol/L (98-107); CREATININE 0.81 mg/dL (0.55-1.02); POTASSIUM 4.5 mmol/L (3.5-5.1); SGOT/AST 32 IU/L (3-35); SGPT/ALT 61 U/L (12-78); SODIUM 131 mmol/L (136-145)
[2020-11-17 12:36] LABS: ALKALINE PHOSPHATASE 105 U/L (45-117); TOTAL PROTEIN 8.1 gm/dL (6.4-8.2)
== END | disposition home or self-care (01) ==
LOC: LAB 11:20
PROVIDERS: Student in an Organized Health Care Education/Training Program; ATTEND Family Medicine
DX: Z45.2 Encounter for adjustment and management of vascular access device (principal); I10 Essential (primary) hypertension; E78.2 Mixed hyperlipidemia; E11.65 Type 2 diabetes mellitus with hyperglycemia; M86.272 Subacute osteomyelitis, left ankle and foot; Z79.899 Other long term (current) drug therapy

== ENCOUNTER → 2020-11-29 | Outpatient (CLI) | payer OTHER | END | disposition home or self-care (01) | LOC: MRI 12:44 | PROVIDERS: ATTEND Podiatrist Foot & Ankle Surgery | DX: M19.072 Primary osteoarthritis, left ankle and foot (principal); M76.822 Posterior tibial tendinitis, left leg; Z98.890 Other specified postprocedural states ==

== ENCOUNTER → 2020-11-30 | Outpatient (CLI) | payer OTHER | END | disposition home or self-care (01) | LOC: RESCLI 03:05 | PROVIDERS: ATTEND Internal Medicine | DX: E11.65 Type 2 diabetes mellitus with hyperglycemia (principal); K21.9 Gastro-esophageal reflux disease without esophagitis; M86.272 Subacute osteomyelitis, left ankle and foot; M00.872 Arthritis due to other bacteria, left ankle and foot; R78.81 Bacteremia; Z45.2 Encounter for adjustment and management of vascular access device; I11.9 Hypertensive heart disease without heart failure; E78.00 Pure hypercholesterolemia, unspecified; E55.9 Vitamin D deficiency, unspecified; Z79.82 Long term (current) use of aspirin; Z79.84 Long term (current) use of oral hypoglycemic drugs; Z79.899 Other long term (current) drug therapy ==

== ENCOUNTER → 2020-12-03 | Outpatient (CLI) | payer OTHER ==
[2020-12-03 14:52] LABS: BASO # 0.1 10*3/uL (0.0-0.1); BASO % 0.8 % (0.0-1.0); EOS # 0.1 10*3/uL (0.0-0.4); EOS % 1.8 % (1.0-4.0); HEMATOCRIT 33.4 % (37.0-47.0); LYMPH # 1.9 10*3/uL (1.3-4.4); LYMPH % 24.2 % (27.0-41.0); MEAN CELL VOLUME 90.5 fl (81.0-99.0); MEAN PLATELET VOLUME 9.9 fl (9.6-12.3); MONO # 0.7 10*3/uL (0.1-1.0); NEUT # 4.9 10*3/uL (2.3-7.9); NEUT % 63.7 % (47.0-73.0); PLATELET COUNT AUTOMATED 256 10*3/uL (130-400); RED BLOOD COUNT 3.69 10*6/uL (4.10-5.10); RED CELL DISTRI WIDTH 14.4 % (0-14.5); WHITE BLOOD COUNT 7.8 10*3/uL (4.8-10.8)
[2020-12-03 15:06] LABS: BUN 16 mg/dl (7-24); CHLORIDE 104 mmol/L (98-107); CREATININE 0.86 mg/dL (0.55-1.02); SODIUM 136 mmol/L (136-145)
== END | disposition home or self-care (01) ==
LOC: LAB 13:28
PROVIDERS: Student in an Organized Health Care Education/Training Program; ATTEND Internal Medicine
DX: Z45.2 Encounter for adjustment and management of vascular access device (principal); M86.272 Subacute osteomyelitis, left ankle and foot

== ENCOUNTER → 2020-12-08 | Day surgery (SDC) | payer OTHER ==
[~2020-12-08] VITALS: Ht 149.8 cm; Wt 62.6 kg
[2020-12-08 06:51] VITALS: BP 129/61
[2020-12-08 08:01] VITALS: BP 118/52
[2020-12-08 08:15] VITALS: BP 108/45
[2020-12-08 08:32] VITALS: BP 118/43
[2020-12-09 12:07] LABS: ACID FAST SPEC PROCESSING Concentration (.)
== END | disposition home or self-care (01) ==
LOC: SDC 12-03 09:30
PROVIDERS: ATTEND Podiatrist
DX: M86.8X7 Other osteomyelitis, ankle and foot (principal); I10 Essential (primary) hypertension; K21.9 Gastro-esophageal reflux disease without esophagitis; F41.9 Anxiety disorder, unspecified; I25.2 Old myocardial infarction; E78.00 Pure hypercholesterolemia, unspecified; E11.40 Type 2 diabetes mellitus with diabetic neuropathy, unspecified; I25.10 Atherosclerotic heart disease of native coronary artery without angina pectoris; Z87.891 Personal history of nicotine dependence; Z79.899 Other long term (current) drug therapy; Z98.890 Other specified postprocedural states; Z20.822 Contact with and (suspected) exposure to COVID-19

== ENCOUNTER → 2021-01-19 | Day surgery (SDC) | payer OTHER ==
[2021-01-14 13:12] VITALS: BP 128/94
[2021-01-19] VITALS (7 sets, daily range): BP systolic 110–148; BP diastolic 52–74
[~2021-01-19] VITALS: Ht 149.8 cm; Wt 55.8 kg
[~2021-01-19] MED LIST changes: +VIBRAMYCIN HYC100 MG PO
== END | disposition home or self-care (01) ==
LOC: SDC 12-24 11:00
PROVIDERS: ATTEND Podiatrist
DX: M21.072 Valgus deformity, not elsewhere classified, left ankle (principal); M21.612 Bunion of left foot; I10 Essential (primary) hypertension; K21.9 Gastro-esophageal reflux disease without esophagitis; F41.9 Anxiety disorder, unspecified; E78.00 Pure hypercholesterolemia, unspecified; I25.2 Old myocardial infarction; M20.12 Hallux valgus (acquired), left foot; M19.072 Primary osteoarthritis, left ankle and foot; E11.40 Type 2 diabetes mellitus with diabetic neuropathy, unspecified; M86.8X7 Other osteomyelitis, ankle and foot; I25.10 Atherosclerotic heart disease of native coronary artery without angina pectoris; Z95.5 Presence of coronary angioplasty implant and graft; Z79.899 Other long term (current) drug therapy; Z20.822 Contact with and (suspected) exposure to COVID-19

== ENCOUNTER → 2021-03-31 | Outpatient (CLI) | payer OTHER | END | disposition home or self-care (01) | LOC: COVID19 16:39 | PROVIDERS: ATTEND Internal Medicine | DX: Z20.822 Contact with and (suspected) exposure to COVID-19 (principal) ==

== ENCOUNTER 2021-06-26 18:56 | Inpatient (IN) | payer OTHER ==
[~2021-06-26] VITALS: Ht 157.4 cm; Wt 178.7 kg
[2021-06-26 19:19] VITALS: BP 98/57
[2021-06-26 19:38] LABS: BASO # 0.1 10*3/uL (0.0-0.1); BASO % 0.3 % (0.0-1.0); EOS # 0.1 10*3/uL (0.0-0.4); EOS % 0.5 % (1.0-4.0); HEMATOCRIT 33.5 % (37.0-47.0); LYMPH # 1.4 10*3/uL (1.3-4.4); LYMPH % 9.4 % (27.0-41.0); MEAN CELL VOLUME 80.5 fl (81.0-99.0); MEAN CORPUSCULAR HGB CONC 32.2 g/dl (33.0-37.0); MEAN PLATELET VOLUME 8.7 fl (9.6-12.3); MONO # 0.9 10*3/uL (0.1-1.0); MONO % 5.8 % (3.0-9.0); NEUT # 12.4 10*3/uL (2.3-7.9); NEUT % 83.4 % (47.0-73.0); PLATELET COUNT AUTOMATED 513 10*3/uL (130-400); RED BLOOD COUNT 4.16 10*6/uL (4.10-5.10); RED CELL DISTRI WIDTH 14.9 % (0-14.5); WHITE BLOOD COUNT 14.9 10*3/uL (4.8-10.8)
[2021-06-26 19:54] LABS: CREATININE 2.18 mg/dL (0.55-1.02); POTASSIUM 3.7 mmol/L (3.5-5.1); TOTAL PROTEIN 8.3 gm/dL (6.4-8.2)
[2021-06-27] VITALS: BP 126/72
[2021-06-27 00:02] VITALS: BP 124/81
[2021-06-27] MEDS ORDERED: MELOXICAM15 MG PO (00:29)
[2021-06-27 05:36] LABS: BILIRUBIN Negative (Negative); BLOOD Negative (Negative); CLARITY Clear (Clear); COLOR Yellow (Yellow); GLUCOSE 2+ (Negative); KETONE Negative (Negative); LEUKO ESTERASE 1+ (Negative); NITRITE Negative (Negative); UROBILINOGEN 0.2 E.U./dl (0.0-1.0)
[2021-06-27 05:55] LABS: BASO % 0.4 % (0.0-1.0); EOS # 0.2 10*3/uL (0.0-0.4); EOS % 1.8 % (1.0-4.0); HEMATOCRIT 28.5 % (37.0-47.0); LYMPH % 20.2 % (27.0-41.0); MEAN CELL VOLUME 81.2 fl (81.0-99.0); MEAN CORPUSCULAR HGB 25.6 pg (27.0-31.0); MEAN CORPUSCULAR HGB CONC 31.6 g/dl (33.0-37.0); MEAN PLATELET VOLUME 8.7 fl (9.6-12.3); MONO # 0.9 10*3/uL (0.1-1.0); MONO % 8.9 % (3.0-9.0); NEUT # 6.6 10*3/uL (2.3-7.9); NEUT % 67.5 % (47.0-73.0); PLATELET COUNT AUTOMATED 385 10*3/uL (130-400); RED BLOOD COUNT 3.51 10*6/uL (4.10-5.10); WHITE BLOOD COUNT 9.7 10*3/uL (4.8-10.8)
[2021-06-27 05:57] LABS: BACTERIA 1+; WBC 16-20 wbc/hpf (0-5)
[2021-06-27 06:04] LABS: ACT PARTIAL THROMBO TIME 28.5 SECONDS (20.0-32.1)
[2021-06-27 06:07] LABS: CREATININE 1.47 mg/dL (0.55-1.02); POTASSIUM 3.6 mmol/L (3.5-5.1); TOTAL PROTEIN 6.7 gm/dL (6.4-8.2)
[2021-06-27 06:12] LABS: THYROID STIM HORMONE (HS) 0.479 uIU/ml (0.358-4.75)
[2021-06-27 07:02] LABS: VITAMIN D, 25-HYDROXY 30.5 ng/mL (30-100)
[2021-06-27 08:00] VITALS: BP 104/42
[2021-06-27 12:00] VITALS: BP 118/63
[2021-06-27 16:00] VITALS: BP 106/61
[2021-06-27 20:00] VITALS: BP 119/70
[2021-06-28] VITALS: BP 102/50
[2021-06-28 06:19] LABS: CHLORIDE 109 mmol/L (98-107); CREATININE 0.89 mg/dL (0.55-1.02); POTASSIUM 4.2 mmol/L (3.5-5.1); SODIUM 138 mmol/L (136-145)
[2021-06-28 06:37] LABS: BUN 15 mg/dl (7-24)
[2021-06-28 07:55] VITALS: BP 114/74; BP 160/78
[2021-06-28] MEDS ORDERED: VIBRAMYCIN100 MG PO (09:51)
[2021-06-28] MEDS ORDERED: PHARMASSURE V500 MCG PO (09:51)
[2021-06-28 12:00] VITALS: BP 118/63
== END 2021-06-28 12:30 | disposition home or self-care (01) | DRG 720 ==
LOC: ED 18:56 → EDHOLD 22:06 → 4E 22:06
PROVIDERS: Hospitalist; Nurse Practitioner Family; Registered Nurse; ADMIT Emergency Medicine; ATTEND Emergency Medicine
DX: A41.9 Sepsis, unspecified organism (principal); L03.116 Cellulitis of left lower limb; K52.9 Noninfective gastroenteritis and colitis, unspecified; E86.0 Dehydration; E87.1 Hypo-osmolality and hyponatremia; E43 Unspecified severe protein-calorie malnutrition; L97.509 Non-pressure chronic ulcer of other part of unspecified foot with unspecified severity; I12.9 Hypertensive chronic kidney disease with stage 1 through stage 4 chronic kidney disease, or unspecified chronic kidney disease; E11.22 Type 2 diabetes mellitus with diabetic chronic kidney disease; N18.31 Chronic kidney disease, stage 3a; N17.0 Acute kidney failure with tubular necrosis; R65.20 Severe sepsis without septic shock; E78.5 Hyperlipidemia, unspecified; E11.40 Type 2 diabetes mellitus with diabetic neuropathy, unspecified; K21.9 Gastro-esophageal reflux disease without esophagitis; I25.10 Atherosclerotic heart disease of native coronary artery without angina pectoris; E53.8 Deficiency of other specified B group vitamins; E11.621 Type 2 diabetes mellitus with foot ulcer; B35.1 Tinea unguium; Z88.8 Allergy status to other drugs, medicaments and biological substances; Z82.49 Family history of ischemic heart disease and other diseases of the circulatory system; Z87.891 Personal history of nicotine dependence; Z79.899 Other long term (current) drug therapy; Z79.1 Long term (current) use of non-steroidal anti-inflammatories (NSAID); Z79.82 Long term (current) use of aspirin; Z68.45 Body mass index [BMI] 70 or greater, adult

== ENCOUNTER → 2021-07-14 | Outpatient (CLI) | payer OTHER ==
[~2021-07-14] MED LIST changes: +PHARMASSURE V500 MCG PO; +VIBRAMYCIN100 MG PO
== END | disposition home or self-care (01) ==
LOC: LAB 10:32 → RAD 10:32
PROVIDERS: ATTEND Family Medicine
DX: M51.36 Other intervertebral disc degeneration, lumbar region (principal); M48.061 Spinal stenosis, lumbar region without neurogenic claudication; M53.3 Sacrococcygeal disorders, not elsewhere classified; N17.9 Acute kidney failure, unspecified

== ENCOUNTER 2021-08-29 18:41 | Emergency (ER) | payer OTHER ==
[~2021-08-29] VITALS: Ht 149.8 cm; Wt 57.6 kg
[2021-08-29 18:48] VITALS: BP 105/66
[2021-08-29 19:31] LABS: BASO # 0.1 10*3/uL (0.0-0.1); BASO % 0.4 % (0.0-1.0); EOS # 0.1 10*3/uL (0.0-0.4); EOS % 0.6 % (1.0-4.0); HEMATOCRIT 29.1 % (37.0-47.0); LYMPH # 1.4 10*3/uL (1.3-4.4); LYMPH % 8.3 % (27.0-41.0); MEAN CORPUSCULAR HGB 26.5 pg (27.0-31.0); MEAN CORPUSCULAR HGB CONC 32.3 g/dl (33.0-37.0); MEAN PLATELET VOLUME 9.3 fl (9.6-12.3); MONO # 1.1 10*3/uL (0.1-1.0); MONO % 6.9 % (3.0-9.0); NEUT # 13.6 10*3/uL (2.3-7.9); NEUT % 83.3 % (47.0-73.0); PLATELET COUNT AUTOMATED 313 10*3/uL (130-400); RED BLOOD COUNT 3.55 10*6/uL (4.10-5.10); RED CELL DISTRI WIDTH 17.7 % (0-14.5); WHITE BLOOD COUNT 16.3 10*3/uL (4.8-10.8)
[2021-08-29 19:47] LABS: CREATININE 1.86 mg/dL (0.55-1.02); POTASSIUM 4.1 mmol/L (3.5-5.1); TOTAL PROTEIN 7.3 gm/dL (6.4-8.2)
== END 2021-08-29 23:03 | disposition home or self-care (01) ==
LOC: ED 18:41
PROVIDERS: Internal Medicine
DX: B34.9 Viral infection, unspecified (principal); Z20.822 Contact with and (suspected) exposure to COVID-19; N17.9 Acute kidney failure, unspecified; D64.9 Anemia, unspecified; E11.65 Type 2 diabetes mellitus with hyperglycemia; I10 Essential (primary) hypertension; I25.2 Old myocardial infarction; E78.00 Pure hypercholesterolemia, unspecified

== ENCOUNTER 2022-04-06 16:16 | Inpatient (IN) | payer OTHER ==
[~2022-04-06] VITALS: Ht 149.9 cm; Wt 58.2 kg
[2022-04-06 16:23] VITALS: BP 91/56
[2022-04-06 16:50] VITALS: BP 123/51
[2022-04-06] MEDS ORDERED: METFORMIN HYDR500 MG PO (16:58)
[2022-04-06] MEDS ORDERED: ADMELOG100 UNIT/1 SQ (16:58)
[2022-04-06] MEDS ORDERED: METOPROLOL SUCC25 M2 PO (16:58)
[2022-04-06 17:06] LABS: BASO # 0.1 10*3/uL (0.0-0.1); BASO % 0.6 % (0.0-1.0); EOS # 0.1 10*3/uL (0.0-0.4); EOS % 1.3 % (1.0-4.0); HEMATOCRIT 34.4 % (37.0-47.0); LYMPH # 1.9 10*3/uL (1.3-4.4); LYMPH % 17.8 % (27.0-41.0); MEAN CELL VOLUME 83.9 fl (81.0-99.0); MEAN CORPUSCULAR HGB 26.8 pg (27.0-31.0); MEAN PLATELET VOLUME 9.4 fl (9.6-12.3); MONO # 0.8 10*3/uL (0.1-1.0); MONO % 7.3 % (3.0-9.0); NEUT # 7.6 10*3/uL (2.3-7.9); NEUT % 72.3 % (47.0-73.0); PLATELET COUNT AUTOMATED 450 10*3/uL (130-400); RED CELL DISTRI WIDTH 13.5 % (0-14.5); WHITE BLOOD COUNT 10.5 10*3/uL (4.8-10.8)
[2022-04-06 17:29] LABS: POTASSIUM 4.3 mmol/L (3.4-5.1); TOTAL PROTEIN 7.6 gm/dL (6.0-8.0)
[2022-04-06 19:04] VITALS: BP 97/62
[2022-04-06 20:30] VITALS: BP 78/42; BP 96/65
[2022-04-06 21:00] VITALS: BP 96/65
[2022-04-07] VITALS (8 sets, daily range): BP systolic 90–114; BP diastolic 51–68
[2022-04-07 06:35] LABS: BASO % 0.6 % (0.0-1.0); EOS # 0.2 10*3/uL (0.0-0.4); EOS % 3.1 % (1.0-4.0); HEMATOCRIT 28.7 % (37.0-47.0); LYMPH # 1.4 10*3/uL (1.3-4.4); LYMPH % 21.3 % (27.0-41.0); MEAN CELL VOLUME 84.9 fl (81.0-99.0); MEAN CORPUSCULAR HGB 27.8 pg (27.0-31.0); MEAN CORPUSCULAR HGB CONC 32.8 g/dl (33.0-37.0); MONO # 0.7 10*3/uL (0.1-1.0); MONO % 9.9 % (3.0-9.0); NEUT # 4.3 10*3/uL (2.3-7.9); NEUT % 64.8 % (47.0-73.0); RED BLOOD COUNT 3.38 10*6/uL (4.10-5.10); RED CELL DISTRI WIDTH 13.5 % (0-14.5); WHITE BLOOD COUNT 6.7 10*3/uL (4.8-10.8)
[2022-04-07 06:49] LABS: PLATELET COUNT AUTOMATED 294 10*3/uL (130-400)
[2022-04-07 07:24] LABS: ALKALINE PHOSPHATASE 92 U/L (46-116); BUN 22 mg/dl (9-23); CHLORIDE 102 mmol/L (98-107); CHOLESTEROL 70 mg/dL (<200); FREE T4 1.24 ng/dl (0.89-1.76); LDL CHOLESTEROL 13 mg/dL (9-159); POTASSIUM 3.9 mmol/L (3.4-5.1); SGPT/ALT 25 U/L (10-49); THYROID STIM HORMONE (HS) 0.795 uIU/ml (0.550-4.780); TOTAL PROTEIN 6.6 gm/dL (6.0-8.0); TRIGLYCERIDES 183 mg/dl (<150)
[2022-04-07 07:45] LABS: BILIRUBIN Negative (Negative); BLOOD 2+ (Negative); CLARITY Clear (Clear); COLOR Yellow (Yellow); GLUCOSE 3+ (Negative); KETONE Negative (Negative); LEUKO ESTERASE 2+ (Negative); NITRITE Negative (Negative); PH 5.5 (4.5-8.0); UROBILINOGEN 0.2 E.U./dl (0.0-1.0)
[2022-04-07 07:53] LABS: ACT PARTIAL THROMBO TIME 25.3 SECONDS (20.0-32.1); INTERNATIONAL NORM RATIO 0.9 (2.0-3.5)
[2022-04-07 10:37] LABS: BACTERIA 3+; RBC 21-30 rbc/hpf (0-2); WBC 41-50 wbc/hpf (0-5)
[2022-04-08 05:56] VITALS: BP 110/60
[2022-04-08 07:10] LABS: BASO % 0.5 % (0.0-1.0); EOS # 0.2 10*3/uL (0.0-0.4); EOS % 2.4 % (1.0-4.0); HEMATOCRIT 32.1 % (37.0-47.0); LYMPH # 1.4 10*3/uL (1.3-4.4); LYMPH % 18.9 % (27.0-41.0); MEAN CELL VOLUME 85.6 fl (81.0-99.0); MEAN CORPUSCULAR HGB 27.5 pg (27.0-31.0); MEAN CORPUSCULAR HGB CONC 32.1 g/dl (33.0-37.0); MONO # 0.7 10*3/uL (0.1-1.0); MONO % 8.7 % (3.0-9.0); NEUT # 5.3 10*3/uL (2.3-7.9); NEUT % 69.1 % (47.0-73.0); PLATELET COUNT AUTOMATED 301 10*3/uL (130-400); RED BLOOD COUNT 3.75 10*6/uL (4.10-5.10); RED CELL DISTRI WIDTH 13.4 % (0-14.5); WHITE BLOOD COUNT 7.6 10*3/uL (4.8-10.8)
[2022-04-08 08:00] VITALS: BP 110/68
[2022-04-08 09:25] LABS: BUN 15 mg/dl (9-23); CHLORIDE 102 mmol/L (98-107); POTASSIUM 4.7 mmol/L (3.4-5.1)
[2022-04-08 12:00] VITALS: BP 108/50
[2022-04-08] MEDS ORDERED: CIPROFLOXACIN500 M4 PO (12:14)
[2022-04-08] MEDS ORDERED: METRONIDAZOLE500 M1 PO (12:14)
== END 2022-04-08 14:07 | disposition home or self-care (01) | DRG 207 ==
LOC: ED 16:16 → EDHOLD 19:19 → 5E 19:19 → 4E 19:49 → ICCU 21:00 → 5E 04-07 11:12
PROVIDERS: Internal Medicine; Nurse Practitioner Family; ADMIT Internal Medicine; ATTEND Internal Medicine
DX: I95.9 Hypotension, unspecified (principal); I25.10 Atherosclerotic heart disease of native coronary artery without angina pectoris; E86.0 Dehydration; E11.22 Type 2 diabetes mellitus with diabetic chronic kidney disease; I12.9 Hypertensive chronic kidney disease with stage 1 through stage 4 chronic kidney disease, or unspecified chronic kidney disease; E11.40 Type 2 diabetes mellitus with diabetic neuropathy, unspecified; N18.31 Chronic kidney disease, stage 3a; M54.9 Dorsalgia, unspecified; D64.9 Anemia, unspecified; D75.839 Thrombocytosis, unspecified; E87.1 Hypo-osmolality and hyponatremia; K21.9 Gastro-esophageal reflux disease without esophagitis; E11.42 Type 2 diabetes mellitus with diabetic polyneuropathy; E87.8 Other disorders of electrolyte and fluid balance, not elsewhere classified; N17.0 Acute kidney failure with tubular necrosis; E11.65 Type 2 diabetes mellitus with hyperglycemia; E78.2 Mixed hyperlipidemia; Z88.8 Allergy status to other drugs, medicaments and biological substances; Z90.49 Acquired absence of other specified parts of digestive tract; Z98.51 Tubal ligation status; Z87.891 Personal history of nicotine dependence; Z82.49 Family history of ischemic heart disease and other diseases of the circulatory system; Z95.5 Presence of coronary angioplasty implant and graft; I25.2 Old myocardial infarction; Z86.73 Personal history of transient ischemic attack (TIA), and cerebral infarction without residual deficits; Z79.4 Long term (current) use of insulin

== ENCOUNTER → 2022-08-30 | Outpatient (CLI) | payer OTHER ==
[~2022-08-30] MED LIST changes: +ADMELOG100 UNIT/1 SQ; +CIPROFLOXACIN500 M4 PO; +METFORMIN HYDR500 MG PO; +METRONIDAZOLE500 M1 PO
== END | disposition home or self-care (01) ==
LOC: ORTHO 07:48
PROVIDERS: ATTEND Orthopaedic Surgery
DX: M19.012 Primary osteoarthritis, left shoulder (principal)

== ENCOUNTER → 2022-09-22 | Outpatient (CLI) | payer OTHER | END | disposition home or self-care (01) | LOC: RAD 13:28 | PROVIDERS: ATTEND Family Medicine | DX: M16.0 Bilateral primary osteoarthritis of hip (principal) ==

== ENCOUNTER → 2023-02-13 | Outpatient (CLI) | payer OTHER ==
[2023-02-13 12:01] LABS: BASO % 0.5 % (0.0-1.0); EOS # 0.1 10*3/uL (0.0-0.4); EOS % 1.9 % (1.0-4.0); HEMATOCRIT 35.9 % (37.0-47.0); LYMPH # 1.5 10*3/uL (1.3-4.4); LYMPH % 20.5 % (27.0-41.0); MEAN CELL VOLUME 85.1 fl (81.0-99.0); MEAN CORPUSCULAR HGB 28.4 pg (27.0-31.0); MEAN CORPUSCULAR HGB CONC 33.4 g/dl (33.0-37.0); MEAN PLATELET VOLUME 9.4 fl (9.6-12.3); MONO # 0.7 10*3/uL (0.1-1.0); MONO % 8.9 % (3.0-9.0); NEUT % 67.5 % (47.0-73.0); PLATELET COUNT AUTOMATED 304 10*3/uL (130-400); RED BLOOD COUNT 4.22 10*6/uL (4.10-5.10); RED CELL DISTRI WIDTH 13.3 % (0-14.5); WHITE BLOOD COUNT 7.4 10*3/uL (4.8-10.8)
[2023-02-13 12:12] LABS: URINE CREATININE RANDOM 83.89 mg/dL
[2023-02-13 12:30] LABS: ALKALINE PHOSPHATASE 120 U/L (46-116); BUN 10 mg/dl (9-23); CHLORIDE 105 mmol/L (98-107); CHOLESTEROL 93 mg/dL (<200); LDL CHOLESTEROL 48 mg/dL (9-159); POTASSIUM 4.6 mmol/L (3.4-5.1); SGPT/ALT 31 U/L (5-49); TOTAL PROTEIN 7.3 gm/dL (6.0-8.0); TRIGLYCERIDES 73 mg/dl (<150)
== END | disposition home or self-care (01) ==
LOC: LAB 11:41
PROVIDERS: Student in an Organized Health Care Education/Training Program; ATTEND Psychiatry & Neurology Neurology with Special Qualifications in Child Neurology
DX: I12.9 Hypertensive chronic kidney disease with stage 1 through stage 4 chronic kidney disease, or unspecified chronic kidney disease (principal); E11.22 Type 2 diabetes mellitus with diabetic chronic kidney disease; N18.9 Chronic kidney disease, unspecified

== ENCOUNTER 2023-04-16 15:32 | Emergency (ER) | payer OTHER ==
[~2023-04-16] VITALS: Wt 60.8 kg
[2023-04-16 15:43] VITALS: BP 132/64
[2023-04-16 16:31] LABS: BASO % 0.3 % (0.0-1.0); EOS # 0.1 10*3/uL (0.0-0.4); HEMATOCRIT 34.2 % (37.0-47.0); LYMPH # 1.4 10*3/uL (1.3-4.4); LYMPH % 23.1 % (27.0-41.0); MEAN CELL VOLUME 86.8 fl (81.0-99.0); MEAN CORPUSCULAR HGB 28.2 pg (27.0-31.0); MEAN CORPUSCULAR HGB CONC 32.5 g/dl (33.0-37.0); MEAN PLATELET VOLUME 9.3 fl (9.6-12.3); MONO # 0.6 10*3/uL (0.1-1.0); MONO % 10.3 % (3.0-9.0); NEUT # 4.1 10*3/uL (2.3-7.9); PLATELET COUNT AUTOMATED 233 10*3/uL (130-400); RED BLOOD COUNT 3.94 10*6/uL (4.10-5.10); RED CELL DISTRI WIDTH 13.5 % (0-14.5); WHITE BLOOD COUNT 6.2 10*3/uL (4.8-10.8)
[2023-04-16 17:05] LABS: ALKALINE PHOSPHATASE 103 U/L (46-116); BUN 12 mg/dl (9-23); CHLORIDE 98 mmol/L (98-107); POTASSIUM 3.7 mmol/L (3.4-5.1); SGPT/ALT 29 U/L (5-49)
[2023-04-16] MEDS ORDERED: AMOX-CLAV 875-1 EACH PO (17:15)
[2023-04-16 17:37] LABS: BILIRUBIN Negative (Negative); BLOOD Negative (Negative); CLARITY Clear (Clear); COLOR Yellow (Yellow); GLUCOSE Trace (Negative); KETONE Negative (Negative); LEUKO ESTERASE Trace (Negative); NITRITE Negative (Negative); PH 5.5 (4.5-8.0); SPECIFIC GRAVITY <= 1.005 (1.001-1.030); UROBILINOGEN 0.2 E.U./dl (0.0-1.0)
[2023-04-16 17:51] LABS: BACTERIA TRACE; EPITHELIAL CELLS 0-2; WBC 16-20 wbc/hpf (0-5)
== END 2023-04-16 18:01 | disposition home or self-care (01) ==
LOC: ED 15:32
PROVIDERS: Nurse Practitioner Family
DX: J02.9 Acute pharyngitis, unspecified (principal); Z20.822 Contact with and (suspected) exposure to COVID-19; I10 Essential (primary) hypertension; I25.2 Old myocardial infarction; K21.9 Gastro-esophageal reflux disease without esophagitis; F41.9 Anxiety disorder, unspecified; E78.00 Pure hypercholesterolemia, unspecified; E11.40 Type 2 diabetes mellitus with diabetic neuropathy, unspecified; F17.200 Nicotine dependence, unspecified, uncomplicated; Z88.8 Allergy status to other drugs, medicaments and biological substances; Z90.49 Acquired absence of other specified parts of digestive tract; Z98.51 Tubal ligation status; Z98.890 Other specified postprocedural states; Z79.899 Other long term (current) drug therapy

== ENCOUNTER 2023-07-25 19:03 | Emergency (ER) | payer OTHER ==
[~2023-07-25] VITALS: Ht 149.8 cm; Wt 61.2 kg
[~2023-07-25 19:03] MED LIST changes: +AMOX-CLAV 875-1 EACH PO
[2023-07-25 19:44] VITALS: BP 153/90
[2023-07-25] MEDS ORDERED: METFORMIN850 MG PO (19:45)
[2023-07-25 22:23] LABS: BILIRUBIN Negative (Negative); BLOOD Negative (Negative); CLARITY Clear (Clear); COLOR Yellow (Yellow); GLUCOSE Negative (Negative); KETONE Negative (Negative); LEUKO ESTERASE 2+ (Negative); NITRITE Negative (Negative); PH 6.5 (4.5-8.0); UROBILINOGEN 0.2 E.U./dl (0.0-1.0)
[2023-07-25 22:24] LABS: BASO # 0.1 10*3/uL (0.0-0.1); BASO % 0.6 % (0.0-1.0); EOS # 0.1 10*3/uL (0.0-0.4); EOS % 1.5 % (1.0-4.0); LYMPH # 2.1 10*3/uL (1.3-4.4); LYMPH % 26.9 % (27.0-41.0); MEAN CELL VOLUME 85.6 fl (81.0-99.0); MEAN CORPUSCULAR HGB 28.5 pg (27.0-31.0); MEAN CORPUSCULAR HGB CONC 33.2 g/dl (33.0-37.0); MONO # 0.8 10*3/uL (0.1-1.0); MONO % 9.9 % (3.0-9.0); NEUT # 4.8 10*3/uL (2.3-7.9); NEUT % 60.7 % (47.0-73.0); PLATELET COUNT AUTOMATED 324 10*3/uL (130-400); RED BLOOD COUNT 3.97 10*6/uL (4.10-5.10); RED CELL DISTRI WIDTH 13.3 % (0-14.5)
[2023-07-25 22:32] LABS: EPITHELIAL CELLS 21-30; WBC 21-30 wbc/hpf (0-5)
[2023-07-25 22:33] LABS: BACTERIA TRACE
[2023-07-25 22:38] LABS: POTASSIUM 4.7 mmol/L (3.4-5.1)
== END 2023-07-25 23:45 | disposition home or self-care (01) ==
LOC: ED 19:03
PROVIDERS: Emergency Medicine
DX: E11.649 Type 2 diabetes mellitus with hypoglycemia without coma (principal); E11.22 Type 2 diabetes mellitus with diabetic chronic kidney disease; I12.9 Hypertensive chronic kidney disease with stage 1 through stage 4 chronic kidney disease, or unspecified chronic kidney disease; N18.31 Chronic kidney disease, stage 3a; E78.5 Hyperlipidemia, unspecified; I25.10 Atherosclerotic heart disease of native coronary artery without angina pectoris; K21.9 Gastro-esophageal reflux disease without esophagitis; E11.40 Type 2 diabetes mellitus with diabetic neuropathy, unspecified; I25.2 Old myocardial infarction; F17.200 Nicotine dependence, unspecified, uncomplicated; Z88.8 Allergy status to other drugs, medicaments and biological substances; Z79.899 Other long term (current) drug therapy; Z79.4 Long term (current) use of insulin; Z79.82 Long term (current) use of aspirin; Z86.73 Personal history of transient ischemic attack (TIA), and cerebral infarction without residual deficits; Z98.890 Other specified postprocedural states; Z90.49 Acquired absence of other specified parts of digestive tract; Z98.51 Tubal ligation status; Z95.5 Presence of coronary angioplasty implant and graft

== ENCOUNTER 2023-12-20 12:48 | Emergency (ER) | payer OTHER ==
[~2023-12-20] VITALS: Ht 149.8 cm; Wt 59.9 kg
[~2023-12-20 12:48] MED LIST changes: +METFORMIN850 MG PO
[2023-12-20 13:04] VITALS: BP 136/92
[2023-12-20] MEDS ORDERED: SODIUM CHLORIDE 0.9% 1,000 ML IV ONE (13:30)
[2023-12-20 13:52] LABS: BASO # 0.1 10*3/uL (0.0-0.1); BASO % 0.5 % (0.0-1.0); EOS # 0.1 10*3/uL (0.0-0.4); EOS % 0.9 % (1.0-4.0); HEMATOCRIT 39.6 % (37.0-47.0); LYMPH # 1.7 10*3/uL (1.3-4.4); LYMPH % 15.2 % (27.0-41.0); MEAN CELL VOLUME 84.4 fl (81.0-99.0); MEAN CORPUSCULAR HGB 27.9 pg (27.0-31.0); MEAN CORPUSCULAR HGB CONC 33.1 g/dl (33.0-37.0); MEAN PLATELET VOLUME 9.5 fl (9.6-12.3); MONO % 9.5 % (3.0-9.0); NEUT # 8.1 10*3/uL (2.3-7.9); NEUT % 73.7 % (47.0-73.0); PLATELET COUNT AUTOMATED 328 10*3/uL (130-400); RED BLOOD COUNT 4.69 10*6/uL (4.10-5.10); RED CELL DISTRI WIDTH 13.2 % (0-14.5); WHITE BLOOD COUNT 10.9 10*3/uL (4.8-10.8)
[2023-12-20 14:13] LABS: POTASSIUM 4.1 mmol/L (3.4-5.1); TOTAL PROTEIN 7.8 gm/dL (6.0-8.0)
[2023-12-20] MEDS ORDERED: MAGNESIUM SULFATE 50 ML IV ONE (14:20)
[2023-12-20] MEDS ORDERED: ACETAMINOPHEN 500 MG TAB PO ONE (15:50)
[2023-12-20 16:55] LABS: BILIRUBIN Negative (Negative); BLOOD Negative (Negative); CLARITY Clear (Clear); COLOR Yellow (Yellow); GLUCOSE Trace (Negative); KETONE Trace (Negative); LEUKO ESTERASE 1+ (Negative); NITRITE Negative (Negative); PH 5.5 (4.5-8.0); UROBILINOGEN 0.2 E.U./dl (0.0-1.0)
[2023-12-20 17:03] LABS: BACTERIA 1+; MUCOUS 2+
[2023-12-20] MEDS ORDERED: CIPRO500 MG PO (17:29)
[2023-12-20] MEDS ORDERED: Ciprofloxacin Hydrochloride 500 MG TAB PO ONE (17:35)
== END 2023-12-20 17:39 | disposition home or self-care (01) ==
LOC: ED 12:48
PROVIDERS: Nurse Practitioner Family
DX: N39.0 Urinary tract infection, site not specified (principal); Z20.822 Contact with and (suspected) exposure to COVID-19; E87.1 Hypo-osmolality and hyponatremia; I25.2 Old myocardial infarction; F41.9 Anxiety disorder, unspecified; E78.00 Pure hypercholesterolemia, unspecified; E11.40 Type 2 diabetes mellitus with diabetic neuropathy, unspecified; E11.65 Type 2 diabetes mellitus with hyperglycemia; D63.1 Anemia in chronic kidney disease; R11.2 Nausea with vomiting, unspecified; I25.10 Atherosclerotic heart disease of native coronary artery without angina pectoris; K21.9 Gastro-esophageal reflux disease without esophagitis; E78.5 Hyperlipidemia, unspecified; E11.22 Type 2 diabetes mellitus with diabetic chronic kidney disease; R51.9 Headache, unspecified; I12.9 Hypertensive chronic kidney disease with stage 1 through stage 4 chronic kidney disease, or unspecified chronic kidney disease; N18.31 Chronic kidney disease, stage 3a; F17.200 Nicotine dependence, unspecified, uncomplicated; Z88.8 Allergy status to other drugs, medicaments and biological substances; Z90.49 Acquired absence of other specified parts of digestive tract; Z98.51 Tubal ligation status; Z98.890 Other specified postprocedural states

== ENCOUNTER 2024-09-14 13:14 | Emergency (ER) | payer OTHER ==
[~2024-09-14] VITALS: Ht 149.8 cm; Wt 55.8 kg
[~2024-09-14 13:14] MED LIST changes: +CIPRO500 MG PO
[2024-09-14 13:23] VITALS: BP 103/76
[2024-09-14] MEDS ORDERED: SODIUM CHLORIDE 0.9% 1,000 ML IV ONE (13:35)
[2024-09-14 14:09] LABS: BASO % 0.4 % (0.0-1.0); EOS # 0.1 10*3/uL (0.0-0.4); EOS % 1.1 % (1.0-4.0); HEMATOCRIT 33.5 % (37.0-47.0); MEAN CELL VOLUME 86.8 fl (81.0-99.0); MEAN CORPUSCULAR HGB 28.5 pg (27.0-31.0); MEAN CORPUSCULAR HGB CONC 32.8 g/dl (33.0-37.0); MEAN PLATELET VOLUME 9.8 fl (9.6-12.3); MONO # 0.8 10*3/uL (0.1-1.0); NEUT % 66.1 % (47.0-73.0); PLATELET COUNT AUTOMATED 236 10*3/uL (130-400); RED BLOOD COUNT 3.86 10*6/uL (4.10-5.10); RED CELL DISTRI WIDTH 13.4 % (0-14.5); WHITE BLOOD COUNT 7.5 10*3/uL (4.8-10.8)
[2024-09-14 14:28] LABS: POTASSIUM 3.9 mmol/L (3.4-5.1)
== END 2024-09-14 15:57 | disposition home or self-care (01) ==
LOC: ED 13:14
PROVIDERS: Nurse Practitioner Family
DX: H66.91 Otitis media, unspecified, right ear (principal); R42 Dizziness and giddiness; J02.9 Acute pharyngitis, unspecified; Z20.822 Contact with and (suspected) exposure to COVID-19; Z88.8 Allergy status to other drugs, medicaments and biological substances; Z79.4 Long term (current) use of insulin; Z79.899 Other long term (current) drug therapy; Z79.82 Long term (current) use of aspirin; Z79.84 Long term (current) use of oral hypoglycemic drugs; Z98.890 Other specified postprocedural states; Z90.49 Acquired absence of other specified parts of digestive tract; Z95.5 Presence of coronary angioplasty implant and graft; Z87.891 Personal history of nicotine dependence

== ENCOUNTER 2025-01-06 13:39 | Emergency (ER) | payer OTHER ==
[~2025-01-06] VITALS: Wt 58.5 kg
[2025-01-06 13:47] VITALS: BP 153/84
[2025-01-06] MEDS ORDERED: Acetaminophen/Hydrocodone 5 MG/325 MG TABLET PO ONE (14:05)
== END 2025-01-06 15:26 | disposition home or self-care (01) ==
LOC: ED 13:39
DX: S83.92XA Sprain of unspecified site of left knee, initial encounter (principal); E11.9 Type 2 diabetes mellitus without complications; I10 Essential (primary) hypertension; F32.A Depression, unspecified; F17.200 Nicotine dependence, unspecified, uncomplicated; Z88.8 Allergy status to other drugs, medicaments and biological substances; Z79.4 Long term (current) use of insulin; Z79.899 Other long term (current) drug therapy; Z79.82 Long term (current) use of aspirin; Z79.84 Long term (current) use of oral hypoglycemic drugs; Z90.49 Acquired absence of other specified parts of digestive tract; Z98.890 Other specified postprocedural states; Z95.5 Presence of coronary angioplasty implant and graft; W18.39XA Other fall on same level, initial encounter; Y93.89 Activity, other specified; Y92.89 Other specified places as the place of occurrence of the external cause; Y99.8 Other external cause status